=== PATIENT | male | born 1935 | race Caucasian/White ===

== ENCOUNTER 2016-10-18 15:10 | Inpatient (IN) | payer MEDICARE, BC ==
[2016-10-18] MEDS ORDERED: ASPIRIN 81 MG CHEW PO STA (15:45)
[2016-10-18] MEDS ORDERED: NITROGLYCERIN SL TABS 0.4 MG TAB SUBLINGUAL STA (15:45)
--- NOTE | 2016-10-18 16:10 | XR ---
EXAMINATION TYPE: XR chest 2V DATE OF EXAM: 10/18/2016 COMPARISON: 01/13/2011 INDICATION: Chest pain TECHNIQUE: Frontal and lateral views of the chest are obtained. FINDINGS: The heart size is mildly prominent. The pulmonary vasculature is normal. The lungs are clear. Bilateral shoulder prostheses are present. IMPRESSION: 1. Mild cardiomegaly
[2016-10-18 16:14] LABS: Basophils % (A) 0 %; CH 23.4; Eosinophils # (A) 0.1 k/uL (0-0.7); Eosinophils % (A) 1 %; HCT 26.8 % (39.0-53.0); HDW 4.44; HGB 8.3 gm/dL (13.0-17.5); Hypochromasia Marked; Luc # (Auto) 0.19; Luc % (Auto) 3; Lymphocytes # (A) 0.8 k/uL (1.0-4.8); Lymphocytes % (A) 10 %; MCH 24.3 pg (25.0-35.0); MCHC 31.1 g/dL (31.0-37.0); MCV 78.2 fL (80.0-100.0); Mean Platelet Volume 7.7; Monocytes # (A) 0.3 k/uL (0-1.0); Monocytes % (A) 4 %; Neutrophils # (A) 6.1 k/uL (1.3-7.7); Neutrophils % (A) 82 %; Poikilocytosis Moderate; RBC 3.43 m/uL (4.30-5.90); RDW 14.6 % (11.5-15.5); WBC 7.5 k/uL (3.8-10.6); WBC (Perox) 7.79
--- NOTE | 2016-10-18 16:22 | ED ---
General Adult HPI - General Chief complaint: Chest Pain Stated complaint: SOB/Chest Pain Time Seen by Provider: 10/18/16 15:30 Source: patient, family, RN notes reviewed, old records reviewed Mode of arrival: wheelchair Limitations: no limitations - History of Present Illness Initial comments: 81-year-old man with history of atrial fibrillation, CAD, hypertension presents with chief complaint of chest pain and shortness of breath. Patient has had 3 days of intermittent chest pain. Discomfort. Activity and at rest. It is substernal, primarily on the left but does also traveled to the right side of his chest. He describes this as a heaviness. Patient also states that on an episode of chest pain this morning it did radiate into his jaw. Denies any arm symptoms. Denies nausea or diaphoresis. Patient does have known history of CAD. He is on our requests for atrial fibrillation. Patient denies missing any medication. He has taken nitroglycerin most recently just prior to arrival. Nitroglycerin did improve his symptoms to some degree. He is currently chest pain-free. Patient has had rectal bleeding over the past several months. Denies any current bleeding. - Related Data Home Medications Medication Instructions Recorded Confirmed Apixaban [Eliquis] 5 mg PO HS 12/15/13 10/18/16 Aspirin EC [Ecotrin] 81 mg PO PC-SUPPER 12/15/13 10/18/16 Atorvastatin Calcium [Atorvastatin 80 mg PO PC-SUPPER 12/15/13 10/18/16 Calcium] Nitroglycerin Sl Tabs [Nitrostat] 0.4 mg PO Q5M PRN 12/15/13 10/18/16 Zolpidem Tartrate [Zolpidem 10 mg PO HS PRN 12/15/13 10/18/16 Tartrate] amLODIPine [Norvasc] 10 mg PO PC-SUPPER 12/15/13 10/18/16 Furosemide [Lasix] 20 mg PO DAILY 10/18/16 10/18/16 Hydrocodone/Acetaminophen [[place] 1 tab PO HS PRN 10/18/16 10/18/16 10-325] Lutein 10 mg PO HS 10/18/16 10/18/16 Mesal/Menth/Camph/[place] 1 inhalation EA NOSTRIL DAILY PRN 10/18/16 [Vicks Vapoinhaler] Multivitamins, Thera [Multivitamin 1 tab PO HS 10/18/16 10/18/16 (formulary)] traZODone HCL 50 mg PO HS 10/18/16 10/18/16 Allergies Allergy/AdvReac Type Severity Reaction Status Date / Time iodine Allergy kidney Verified 10/18/16 16:29 shutdown Review of Systems ROS Statement: Those systems with pertinent positive or pertinent negative responses have been documented in the HPI. ROS Other: All systems not noted in ROS Statement are negative. Past Medical History Past Medical History: Atrial Fibrillation, Hyperlipidemia, Hypertension History of Any Multi-Drug Resistant Organisms: None Reported Past Surgical History: Heart Catheterization With Stent, Hernia Repair, Joint Replacement Additional Past Surgical History / Comment(s): cardioversions Past Psychological History: No Psychological Hx Reported Smoking Status: Former smoker Past Alcohol Use History: Rare Past Drug Use History: None Reported General Exam Limitations: no limitations General appearance: alert, in no apparent distress Head exam: Present: atraumatic, normocephalic Eye exam: Present: normal appearance, PERRL, EOMI ENT exam: Present: normal exam, mucous membranes dry Neck exam: Present: normal inspection. Absent: tenderness, meningismus Respiratory exam: Present: normal lung sounds bilaterally. Absent: respiratory distress, wheezes, rhonchi Cardiovascular Exam: Present: regular rate, irregular rhythm GI/Abdominal exam: Present: soft, distended. Absent: tenderness, guarding Rectal exam: Present: normal inspection. Absent: black stool, bloody stool Extremities exam: Present: normal inspection, full ROM Neurological exam: Present: alert, oriented X3, CN II-XII intact. Absent: motor sensory deficit Psychiatric exam: Present: normal affect, normal mood Skin exam: Present: warm, dry. Absent: cyanosis, diaphoretic Course Vital Signs 10/18/16 10/18/16 10/18/16 15:19 15:30 15:47 Temperature 98.2 F Pulse Rate 66 62 Respiratory 18 18 18 Rate Blood Pressure 142/66 131/62 O2 Sat by Pulse 98 97 Oximetry 10/18/16 10/18/16 16:05 16:33 Temperature Pulse Rate 60 Respiratory 18 Rate Blood Pressure 118/55 125/60 O2 Sat by Pulse 99 Oximetry EKG Findings - EKG Comments: EKG Findings:: EKG shows atrial fibrillation, ventricular rate of 69, QRS duration 92, QTC 458. No signs of ischemia Medical Decision Making - Medical Decision Making 81-year-old man presenting with 3 days of intermittent chest pain. Chest pain is typical, associated with some shortness of breath. Patient also reports rectal bleeding over the past several months. He did have prostate radiation his had bleeding since this procedure. Patient does not have chest pain at the time my evaluation. EKG is nonischemic. Chest x-ray shows cardiomegaly with no acute intrathoracic process. Hemoglobin is 8.3, last known baseline in 2014 was 14.7, this does represent a 6 g drop in hemoglobin. Creatinine is elevated at 1.35 from baseline of 1.22. Patient's hemoglobin will be repeated at 10 PM as well as 6 AM tomorrow. There is no melena or active bleeding on rectal exam , stool is heme positive. This doesn't likely represent a prolonged slow GI bleed. Vital signs are stable. Magnesium is 1.5, this is replaced. Case is discussed with cardiology. Chest pain is likely anginal from anemia. This will be held at this time. GI will be placed on consult. Troponin level is pending at the time of this dictation, however given the low hemoglobin and positive stool, no anticoagulation will be provided at this time. Patient will be admitted to internal medicine with cardiology and gastroenterology on consult. Diagnosis: Angina, GI bleed, acute kidney injury - Lab Data Result diagrams: 10/18/16 15:43 10/18/16 15:43 Lab Results 10/18/16 10/18/16 10/18/16 Range/Units 15:43 15:43 15:43 WBC 7.5 (3.8-10.6) k/uL RBC 3.43 L (4.30-5.90) m/uL Hgb 8.3 L (13.0-17.5) gm/dL Hct 26.8 L (39.0-53.0) % MCV 78.2 L (80.0-100.0) fL MCH 24.3 L (25.0-35.0) pg MCHC 31.1 (31.0-37.0) g/dL RDW 14.6 (11.5-15.5) % Plt Count 257 (150-450) k/uL Neutrophils % 82 % Lymphocytes % 10 % Monocytes % 4 % Eosinophils % 1 % Basophils % 0 % Neutrophils # 6.1 (1.3-7.7) k/uL Lymphocytes # 0.8 L (1.0-4.8) k/uL Monocytes # 0.3 (0-1.0) k/uL Eosinophils # 0.1 (0-0.7) k/uL Basophils # 0.0 (0-0.2) k/uL Hypochromasia Marked Poikilocytosis Moderate PT 12.1 H (9.0-12.0) sec INR 1.2 H (<1.2) APTT 24.1 (22.0-30.0) sec Sodium 144 (137-145) mmol/L Potassium 3.6 (3.5-5.1) mmol/L Chloride 103 (98-107) mmol/L Carbon Dioxide 26 (22-30) mmol/L Anion Gap 15 mmol/L BUN 13 (9-20) mg/dL Creatinine 1.35 H (0.66-1.25) mg/dL Est GFR (MDRD) Af Amer >60 (>60 ml/min/1.73 sqM) Est GFR (MDRD) Non-Af 51 (>60 ml/min/1.73 sqM) Glucose 118 H (74-99) mg/dL Calcium 8.0 L (8.4-10.2) mg/dL Magnesium 1.5 L (1.6-2.3) mg/dL Total Bilirubin 1.6 H (0.2-1.3) mg/dL AST 26 (17-59) U/L ALT 19 L (21-72) U/L Alkaline Phosphatase 99 (38-126) U/L Total Protein 6.0 L (6.3-8.2) g/dL Albumin 3.3 L (3.5-5.0) g/dL Stool Occult Blood (Negative) 10/18/16 Range/Units 15:43 WBC (3.8-10.6) k/uL RBC (4.30-5.90) m/uL Hgb (13.0-17.5) gm/dL Hct (39.0-53.0) % MCV (80.0-100.0) fL MCH (25.0-35.0) pg MCHC (31.0-37.0) g/dL RDW (11.5-15.5) % Plt Count (150-450) k/uL Neutrophils % % Lymphocytes % % Monocytes % % Eosinophils % % Basophils % % Neutrophils # (1.3-7.7) k/uL Lymphocytes # (1.0-4.8) k/uL Monocytes # (0-1.0) k/uL Eosinophils # (0-0.7) k/uL Basophils # (0-0.2) k/uL Hypochromasia Poikilocytosis PT (9.0-12.0) sec INR (<1.2) APTT (22.0-30.0) sec Sodium (137-145) mmol/L Potassium (3.5-5.1) mmol/L Chloride (98-107) mmol/L Carbon Dioxide (22-30) mmol/L Anion Gap mmol/L BUN (9-20) mg/dL Creatinine (0.66-1.25) mg/dL Est GFR (MDRD) Af Amer (>60 ml/min/1.73 sqM) Est GFR (MDRD) Non-Af (>60 ml/min/1.73 sqM) Glucose (74-99) mg/dL Calcium (8.4-10.2) mg/dL Magnesium (1.6-2.3) mg/dL Total Bilirubin (0.2-1.3) mg/dL AST (17-59) U/L ALT (21-72) U/L Alkaline Phosphatase (38-126) U/L Total Protein (6.3-8.2) g/dL Albumin (3.5-5.0) g/dL Stool Occult Blood Positive (Negative) Critical Care Time Critical Care Time: Yes Total Critical Care Time: 35 Disposition Clinical Impression: Angina pectoris, Lower GI bleed Disposition: ADMITTED IP TO THIS [facility] Condition: Stable Referrals: Cam Nichole MD [Primary Care Provider] - 1-2 days Decision to Admit Reason: Admit from EC Decision Date: 10/18/16 Decision Time: 16:48
[2016-10-18 16:23] LABS: ALT 19 U/L (21-72); AST 26 U/L (17-59); Alkaline Phosphatase 99 U/L (38-126); Anion Gap 15 mmol/L; Blood Urea Nitrogen 13 mg/dL (9-20); Carbon Dioxide 26 mmol/L (22-30); Chloride 103 mmol/L (98-107); Glucose 118 mg/dL (74-99); INR 1.2 (<1.2); Magnesium 1.5 mg/dL (1.6-2.3); Non-African American GFR(MDRD) 51 (>60 ml/min/1.73 sqM); Partial Thromboplastin Time 24.1 sec (22.0-30.0); Potassium 3.6 mmol/L (3.5-5.1); Prothrombin Time 12.1 sec (9.0-12.0); Sodium 144 mmol/L (137-145); Total Bilirubin 1.6 mg/dL (0.2-1.3)
[2016-10-18] MEDS ORDERED: MORPHINE SULFATE 4 MG/ML SYRINGE IV PRN (16:36)
[2016-10-18] MEDS ORDERED: ONDANSETRON 4 MG/2 ML VIAL IVP PRN (16:36)
[2016-10-18] MEDS ORDERED: ACETAMINOPHEN TAB 325 MG TAB PO PRN (16:36)
[2016-10-18] MEDS ORDERED: NALOXONE 0.4 MG/ML 1 ML VIAL IV PRN (16:36)
[2016-10-18] MEDS ORDERED: MAGNESIUM SULFATE-D5W PMX 1 GM in DEXTROSE/WATER 1 100ML.BAG IVPB ONE (16:41)
[2016-10-18 16:48] LABS: Creatine Kinase MB 0.8 ng/mL (0.0-2.4); Troponin I 0.013 ng/mL (0.000-0.034)
[2016-10-18] MEDS ORDERED: HYDROcodone/APAP 5-325MG 1 EACH TAB PO STA (17:03)
[2016-10-18] MEDS: SODIUM CHLORIDE 0.9% 1,000 ML IV SCH (17:22)
[2016-10-18 18:34] VITALS: BMI 33.7
[2016-10-18] MEDS: amLODIPine 10 MG TAB PO SCH (19:54)
[2016-10-18] MEDS: ATORVASTATIN 80 MG TAB PO SCH (19:54)
[2016-10-18] MEDS: ZOLPIDEM 10 MG TAB PO PRN (21:34)
[2016-10-18] MEDS: HYDROcodone/APAP 10-325MG 1 EACH TAB PO PRN (21:35)
[2016-10-18] MEDS: traZODone HCL 50 MG TAB PO SCH (21:36)
[2016-10-18 22:36] LABS: Basophils % (A) 0 %; CH 23.2; CHCM 29.6; Eosinophils # (A) 0.1 k/uL (0-0.7); Eosinophils % (A) 1 %; HCT 29.2 % (39.0-53.0); HDW 4.34; HGB 8.8 gm/dL (13.0-17.5); Hypochromasia Marked; Luc # (Auto) 0.18; Luc % (Auto) 3; Lymphocytes % (A) 16 %; MCH 23.8 pg (25.0-35.0); MCHC 30.2 g/dL (31.0-37.0); MCV 78.6 fL (80.0-100.0); Mean Platelet Volume 7.6; Monocytes # (A) 0.4 k/uL (0-1.0); Monocytes % (A) 6 %; Neutrophils # (A) 4.5 k/uL (1.3-7.7); Neutrophils % (A) 74 %; Poikilocytosis Moderate; RBC 3.71 m/uL (4.30-5.90); RDW 14.9 % (11.5-15.5); WBC 6.1 k/uL (3.8-10.6); WBC (Perox) 6.47
[2016-10-18 22:54] LABS: Creatine Kinase MB 0.9 ng/mL (0.0-2.4); Troponin I 0.019 ng/mL (0.000-0.034)
[2016-10-19 03:51] LABS: Basophils % (A) 1 %; CH 23.1; CHCM 29.6; Eosinophils # (A) 0.1 k/uL (0-0.7); Eosinophils % (A) 2 %; HCT 26.6 % (39.0-53.0); HDW 4.34; HGB 8.3 gm/dL (13.0-17.5); Hypochromasia Marked; Luc # (Auto) 0.19; Luc % (Auto) 4; Lymphocytes # (A) 1.2 k/uL (1.0-4.8); Lymphocytes % (A) 21 %; MCH 24.4 pg (25.0-35.0); MCHC 31.2 g/dL (31.0-37.0); MCV 78.2 fL (80.0-100.0); Mean Platelet Volume 7.8; Monocytes # (A) 0.3 k/uL (0-1.0); Monocytes % (A) 6 %; Neutrophils # (A) 3.6 k/uL (1.3-7.7); Neutrophils % (A) 66 %; Poikilocytosis Moderate; RDW 14.6 % (11.5-15.5); WBC 5.5 k/uL (3.8-10.6); WBC (Perox) 5.77
[2016-10-19 04:34] LABS: Creatine Kinase MB 0.8 ng/mL (0.0-2.4); Troponin I 0.03 ng/mL (0.000-0.034)
[2016-10-19 04:44] LABS: ALT 23 U/L (21-72); AST 33 U/L (17-59); Alkaline Phosphatase 98 U/L (38-126); Anion Gap 8 mmol/L; Blood Urea Nitrogen 15 mg/dL (9-20); Calcium 7.8 mg/dL (8.4-10.2); Carbon Dioxide 28 mmol/L (22-30); Chloride 104 mmol/L (98-107); Glucose 101 mg/dL (74-99); Non-African American GFR(MDRD) 53 (>60 ml/min/1.73 sqM); Potassium 3.8 mmol/L (3.5-5.1); Sodium 140 mmol/L (137-145); Total Bilirubin 1.8 mg/dL (0.2-1.3); Total Protein 5.7 g/dL (6.3-8.2)
[2016-10-19] MEDS ORDERED: FLUTICASONE 50MCG/SPRAY NASAL 16GM EA NOSTRIL PRN (04:54)
[2016-10-19] MEDS ORDERED: NITROGLYCERIN SL TABS 0.4 MG TAB SUBLINGUAL PRN (07:48)
[2016-10-19] MEDS ORDERED: FUROSEMIDE 20 MG TAB PO SCH (09:00)
[2016-10-19] MEDS: SODIUM CHLORIDE 0.9% 1,000 ML IV SCH (09:06)
[2016-10-19] MEDS: HYDROcodone/APAP 10-325MG 1 EACH TAB PO PRN (10:20)
--- NOTE | 2016-10-19 10:48 | P.CRDCN ---
History of Present Illness Consult reason: atrial fibrillation, congestive heart failure Chief complaint: blood loss lower gi, recurrent History of present illness: Patient follows with me as an outpatient. Please see full consultation Impression Acute on chronic CHF, diastolic with a normal EF in the past precipitated by anemia secondary to acute blood loss, hemoglobin around 8.3, lower GI bleeding, recurrent for the last few months History of permanent atrial fibrillation him a intrinsic lead rate controlled, gets bradycardic with beta blockers hence beta blockers were discontinued as an outpatient Nonobstructive CAD Obstructive sleep apnea using CPAP mask Normal cardiac enzymes, elevated BNP Suggest GI workup and management of anemia IV Lasix 40 mg daily for 2 days and then reevaluate Imdur 15 mg by mouth daily No beta blockers, history of significant bradycardia on beta kirstin 2-D echo and Doppler study tomorrow Past Medical History Past Medical History: Atrial Fibrillation, Hyperlipidemia, Hypertension Additional Past Medical History / Comment(s): prostate ca 1.5 year ago. radiation (last tx 07/08) History of Any Multi-Drug Resistant Organisms: None Reported Past Surgical History: Cholecystectomy, Heart Catheterization With Stent, Hernia Repair, Joint Replacement Additional Past Surgical History / Comment(s): cardioversions; BL shoulders replaced; amputation of left index finger; BL cataracts Date of Last Stent Placement:: 2010 Past Psychological History: No Psychological Hx Reported Smoking Status: Former smoker Past Alcohol Use History: Rare Past Drug Use History: None Reported Medications and Allergies Home Medications Medication Instructions Recorded Confirmed Type Apixaban [Eliquis] 5 mg PO HS 12/15/13 10/18/16 History Aspirin EC [Ecotrin] 81 mg PO PC-SUPPER 12/15/13 10/18/16 History Atorvastatin Calcium [Atorvastatin 80 mg PO PC-SUPPER 12/15/13 10/18/16 History Calcium] Nitroglycerin Sl Tabs [Nitrostat] 0.4 mg PO Q5M PRN 12/15/13 10/18/16 History Zolpidem Tartrate [Zolpidem 10 mg PO HS PRN 12/15/13 10/18/16 History Tartrate] amLODIPine [Norvasc] 10 mg PO PC-SUPPER 12/15/13 10/18/16 History Furosemide [Lasix] 20 mg PO DAILY 10/18/16 10/18/16 History Hydrocodone/Acetaminophen [[place] 1 tab PO HS PRN 10/18/16 10/18/16 History 10-325] Lutein 10 mg PO HS 10/18/16 10/18/16 History Mesal/Menth/Camph/[place] 1 inhalation EA NOSTRIL DAILY PRN 10/18/16 History [Vicks Vapoinhaler] Multivitamins, Thera [Multivitamin 1 tab PO HS 10/18/16 10/18/16 History (formulary)] traZODone HCL 50 mg PO HS 10/18/16 10/18/16 History Allergies Allergy/AdvReac Type Severity Reaction Status Date / Time iodine Allergy kidney Verified 10/18/16 16:29 shutdown Physical Exam Vitals: Vital Signs Temp Pulse Pulse Resp BP BP Pulse Ox 10/19/16 08:00 80 20 164/56 100 10/19/16 06:03 70 19 151/67 96 10/19/16 04:00 56 L 19 10/19/16 00:37 87 19 143/70 97 10/18/16 20:23 60 19 159/75 100 10/18/16 17:26 98.0 F 60 18 137/72 97 10/18/16 17:03 63 18 146/65 96 10/18/16 16:33 60 18 125/60 99 10/18/16 16:05 118/55 10/18/16 16:00 68 20 137/71 96 10/18/16 15:47 62 18 131/62 97 10/18/16 15:30 18 10/18/16 15:19 98.2 F 66 18 142/66 98 Intake and Output 10/18/16 10/19/16 10/19/16 22:59 06:59 14:59 Other: Voiding Method Toilet Toilet Urinal Urinal # Voids 2 Weight 106.59 kg Results 10/19/16 03:23 10/19/16 03:23 Cardiac Enzymes 10/18/16 10/18/16 10/18/16 Range/Units 15:43 15:43 21:52 AST 26 (17-59) U/L CK-MB (CK-2) 0.8 0.9 (0.0-2.4) ng/mL Troponin I 0.013 0.019 (0.000-0.034) ng/mL 10/19/16 10/19/16 Range/Units 03:23 03:23 AST 33 (17-59) U/L CK-MB (CK-2) 0.8 (0.0-2.4) ng/mL Troponin I 0.030 (0.000-0.034) ng/mL Coagulation 10/18/16 Range/Units 15:43 PT 12.1 H (9.0-12.0) sec APTT 24.1 (22.0-30.0) sec CBC 10/18/16 10/18/16 10/19/16 Range/Units 15:43 21:52 03:23 WBC 7.5 6.1 5.5 (3.8-10.6) k/uL RBC 3.43 L 3.71 L 3.40 L (4.30-5.90) m/uL Hgb 8.3 L 8.8 L 8.3 L (13.0-17.5) gm/dL Hct 26.8 L 29.2 L 26.6 L (39.0-53.0) % Plt Count 257 236 213 (150-450) k/uL Comprehensive Metabolic Panel 10/18/16 10/19/16 Range/Units 15:43 03:23 Sodium 144 140 (137-145) mmol/L Potassium 3.6 3.8 (3.5-5.1) mmol/L Chloride 103 104 (98-107) mmol/L Carbon Dioxide 26 28 (22-30) mmol/L BUN 13 15 (9-20) mg/dL Creatinine 1.35 H 1.30 H (0.66-1.25) mg/dL Glucose 118 H 101 H (74-99) mg/dL Calcium 8.0 L 7.8 L (8.4-10.2) mg/dL AST 26 33 (17-59) U/L ALT 19 L 23 (21-72) U/L Alkaline Phosphatase 99 98 (38-126) U/L Total Protein 6.0 L 5.7 L (6.3-8.2) g/dL Albumin 3.3 L 3.1 L (3.5-5.0) g/dL Current Medications Generic Name Dose Route Start Last Admin Trade Name Freq PRN Reason Stop Dose Admin Acetaminophen 650 mg 10/18/16 16:36 Tylenol Tab PO Q6HR PRN Mild Pain or Fever > 100.5 Hydrocodone Bitart/Acetaminophen 1 each 10/18/16 16:43 10/19/16 10:20 [place] 10 PO 1 each HS PRN Administration MODERATE Pain Amlodipine Besylate 10 mg 10/18/16 18:30 10/18/16 19:54 Norvasc PO 10 mg PC-SUPPER MARIA M Administration Atorvastatin Calcium 80 mg 10/18/16 18:30 10/18/16 19:54 Lipitor PO 80 mg PC-SUPPER MARIA M Administration Fluticasone Propionate 2 spray 10/19/16 04:54 Flonase Nasal [place] EA NOSTRIL DAILY PRN Allergy Symptoms Furosemide 40 mg 10/19/16 10:45 Lasix IV 10/21/16 07:00 DAILY [facility] Isosorbide Mononitrate 15 mg 10/19/16 10:45 Imdur PO DAILY MARIA M Morphine Sulfate 4 mg 10/18/16 16:36 Morphine Sulfate (Inj) IV Q4HR PRN Severe Pain Multivitamins 1 each 10/19/16 21:00 Theragran PO HS MARIA M Naloxone HCl 0.2 mg 10/18/16 16:36 Narcan IV Q2M PRN Opioid Reversal Nitroglycerin 0.4 mg 10/19/16 07:48 Nitrostat SUBLINGUAL Q5M PRN Chest Pain Ondansetron HCl 4 mg 10/18/16 16:36 Zofran IVP Q8HR PRN Nausea And Vomiting Trazodone HCl 50 mg 10/18/16 21:00 10/18/16 21:36 Desyrel PO 50 mg HS MARIA M Administration Zolpidem Tartrate 10 mg 10/18/16 16:43 10/18/16 21:34 Ambien PO 10 mg HS PRN Administration Insomnia Intake and Output 10/18/16 10/19/16 10/19/16 22:59 06:59 14:59 Other: Voiding Method Toilet Toilet Urinal Urinal # Voids 2 Weight 106.59 kg 10/19/16 03:23 10/19/16 03:23
[2016-10-19] MEDS: FUROSEMIDE 10 MG/ML 4 ML VIAL IV SCH (11:55)
[2016-10-19] MEDS: ISOSORBIDE MONONITRATE ER 15 MG TAB PO SCH (11:55)
--- NOTE | 2016-10-19 14:51 | CONS ---
DATE OF CONSULTATION: 10/19/16 REASON FOR CONSULTATION: Rectal bleeding. HISTORY OF PRESENT ILLNESS: The patient is an 81 -year-old pleasant white male admitted to the hospital with shortness of breath for the last two months duration. Came into the emergency room and was found to be anemic with hemoglobin of 8.3. Apparently his baseline hemoglobin was 14. The patient has been having intermittent rectal bleeding for the last two months. He has these bleeding episodes at least three or four times a week often with small clots. He was diagnosed with prostate cancer about a year ago and underwent radiation therapy at that time. His last colonoscopy was about four years ago and according to the patients , it was within normal limits. The patient denies any abdominal pain, reports no nausea or vomiting. PAST MEDICAL HISTORY: Significant for hypertension, A. fib. Presently on Eliquis. Last dose was three days ago, history of sleep apnea, on CPAP, hypertension, hyperlipidemia. Medications at home: 1. Eliquis. 2. Ecotrin. 3. Atorvastatin. 4. Nitrostat. 5. Zolpidem. 6. [place]. 7. Lasix. 8. Norvasc. 9. Multivitamin. 10. Trazodone. ALLERGIES: IODINE. PAST SURGICAL HISTORY: Cardiac catheterization with stent placement, hernia repair. SOCIAL HISTORY: No smoking or alcohol use. FAMILY HISTORY: Unremarkable. REVIEW OF SYSTEMS: Cardiopulmonary: No chest pain. He does complain of some shortness of breath. : No dysuria or hematuria. Musculoskeletal: Unremarkable. Endocrine: Unremarkable. Skin: Unremarkable. Psychiatric: Unremarkable. Neurological: Unremarkable. ENT/vision: Unremarkable. Constitutional; No recent weight loss. No fevers, chills or night sweats. On physical examination, he appears comfortable in no apparent distress. Vital signs are stable. Blood pressure 151/66. Pulse rate 56. ( ). HEENT: unremarkable. Conjunctivae pink. Sclerae anicteric. Oral cavity no lesions. Neck: No JVD or lymph node enlargement. Chest clear to auscultation. Heart regular rate and rhythm. Abdomen soft. Bowel sounds positive. He is obese. Extremities no pedal edema. Skin no rashes. Neurological: Alert and oriented times three. No focal deficits. Labs done at the time of admission to the hospital: WBC 7.5, hemoglobin 8.3, platelets are normal. This morning hemoglobin 8.3. ( ) INR 1.2. IMPRESSION: 1. This is a patient with intermittent rectal bleeding for the last two months duration. He is status post radiation therapy for prostate cancer about a year ago. 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 His last colonoscopy was about four years ago which was within normal limits. Last hemoglobin 8.3. 2. Atrial fibrillation on Eliquis, on hold for the last two days. 3. Sleep apnea on oral BIPAP. RECOMMENDATIONS: 1. Continue to hold Coumadin. 2. We will start him on a clear liquid diet today. 3. Proceed with colonoscopy tomorrow with Argon plasma coagulation for possible radiation proctitis. The plan was discussed with the patient and he is agreeable to it. Thank you for this consultation. PETROS
--- NOTE | 2016-10-19 16:28 | P.HPIM ---
History of Present Illness H&P Date: 10/19/16 Chief Complaint: Chest pain History of presenting complaint: This is a very pleasant 9-year-old patient of Dr. Pastor. Chronic stable medical conditions include atrial fibrillation, hyperlipidemia, hypertension, prostate cancer treated with radiation about a year ago. Patient has known coronary artery disease with stent placement 2010. Patient has a stress test about a year ago was negative. Patient intermittently for last 8 weeks and had blood in his stools coming on at different times. Patient now presents with pain going across the chest 3-4 times a day given coming on at rest for example watching television. Sometimes the pain goes up his neck, patient short of breath, denies perspiration. Sometimes gets dizzy. Oftentimes tired. Admitted unstable angina. is at the bedside. GEN.: Tired EYES: None HEENT: None NECK: None RESPIRATORY: As above CARDIOVASCULAR: As above GASTROINTESTINAL: As above GENITOURINARY: None MUSCULOSKELETAL: Some pain in the joints LYMPHATICS: None HEMATOLOGICAL: As above PSYCHIATRY: None NEUROLOGICAL: None Past medical history: Atrial fibrillation, hyperlipidemia, hypertension, prostate cancer treated with radiation treatment, coronary artery with stent in 2010 Past surgical history: Cholecystectomy, cardiac cath and stent, hernia repair, joint replacement, bilateral shoulder replaced, and patient left index finger, bilateral cataract surgery. 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 EYES: Pupils equal. Conjunctiva normal. HEENT: External appearance of nose and ears normal, oral cavity grossly normal. NECK: JVD not raised; masses not palpable. HEART: First and second heart sounds are normal; no edema. LUNGS: Respiratory rate normal; clear to auscultation. ABDOMEN: Soft, nontender, liver spleen not palpable, no masses palpable. LYMPHATICS: No lymph nodes palpable in the axilla and neck. PSYCH: Alert and oriented x3; mood and affect normal. NEUROLOGICAL: Cranial nerves grossly intact; no facial asymmetry, power and sensation grossly intact. Investigations: White count 7.5 hemoglobin 8.3 potassium 3.6 creatinine 1.35 bilirubin 1.6 Troponin 0.013, 0.019, 0.030 proBNP 2850 Chest x-ray mild cardiomegaly Assessment: -Unstable angina in a patient with known coronary artery disease with stent in 2010. Patient been bleeding slowly from the GI and this anemia could well be contributing and causing the patient to be symptomatically. 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 Chacon from cardiology. They both agree patient should get a unit of blood to help of his angina at this point. Also GI was consulted. They'll proceed with endoscopy. Care was discussed with the patient and at the bedside. Patient anticoagulated is being held. Home medications are resumed. Past Medical History Past Medical History: Atrial Fibrillation, Hyperlipidemia, Hypertension Additional Past Medical History / Comment(s): prostate ca 1.5 year ago. radiation (last tx 07/08) History of Any Multi-Drug Resistant Organisms: None Reported Past Surgical History: Cholecystectomy, Heart Catheterization With Stent, Hernia Repair, Joint Replacement Additional Past Surgical History / Comment(s): cardioversions; BL shoulders replaced; amputation of left index finger; BL cataracts Date of Last Stent Placement:: 2010 Past Psychological History: No Psychological Hx Reported Smoking Status: Former smoker Past Alcohol Use History: Rare Past Drug Use History: None Reported Medications and Allergies Home Medications Medication Instructions Recorded Confirmed Type Apixaban [Eliquis] 5 mg PO HS 12/15/13 10/18/16 History Aspirin EC [Ecotrin] 81 mg PO PC-SUPPER 12/15/13 10/18/16 History Atorvastatin Calcium [Atorvastatin 80 mg PO PC-SUPPER 12/15/13 10/18/16 History Calcium] Nitroglycerin Sl Tabs [Nitrostat] 0.4 mg PO Q5M PRN 12/15/13 10/18/16 History Zolpidem Tartrate [Zolpidem 10 mg PO HS PRN 12/15/13 10/18/16 History Tartrate] amLODIPine [Norvasc] 10 mg PO PC-SUPPER 12/15/13 10/18/16 History Furosemide [Lasix] 20 mg PO DAILY 10/18/16 10/18/16 History Hydrocodone/Acetaminophen [[place] 1 tab PO HS PRN 10/18/16 10/18/16 History 10-325] Lutein 10 mg PO HS 10/18/16 10/18/16 History Mesal/Menth/Camph/[place] 1 inhalation EA NOSTRIL DAILY PRN 10/18/16 History [Vicks Vapoinhaler] Multivitamins, Thera [Multivitamin 1 tab PO HS 10/18/16 10/18/16 History (formulary)] traZODone HCL 50 mg PO HS 10/18/16 10/18/16 History Allergies Allergy/AdvReac Type Severity Reaction Status Date / Time iodine Allergy kidney Verified 10/18/16 16:29 shutdown Results CBC & Chem 7: 10/19/16 03:23 10/19/16 03:23
[2016-10-19] MEDS ORDERED: PEG 3350-NA SULF,BICARB,CL/KCL 4,000 ML BOTTLE PO ONE (17:00)
[2016-10-19] MEDS: ATORVASTATIN 80 MG TAB PO SCH (18:19)
[2016-10-19] MEDS: amLODIPine 10 MG TAB PO SCH (18:19)
[2016-10-19 19:22] LABS: WBC 7.9 k/uL (3.8-10.6)
[2016-10-19 19:23] LABS: CH 24.3; CHCM 30.5; HCT 33.3 % (39.0-53.0); HDW 4.54; HGB 10.5 gm/dL (13.0-17.5); MCH 25.1 pg (25.0-35.0); MCHC 31.5 g/dL (31.0-37.0); MCV 79.6 fL (80.0-100.0); RBC 4.18 m/uL (4.30-5.90); RDW 15.7 % (11.5-15.5); WBC (Perox) 7.95
[2016-10-19 19:24] LABS: Hypochromasia Marked; Mean Platelet Volume 7.7; Poikilocytosis Moderate
[2016-10-19 19:25] LABS: Basophils % (A) 0 %; Eosinophils % (A) 2 %; Luc % (Auto) 4; Monocytes % (A) 7 %; Neutrophils % (A) 71 %
[2016-10-19 19:26] LABS: Eosinophils # (A) 0.2 k/uL (0-0.7); Lymphocytes # (A) 1.2 k/uL (1.0-4.8); Lymphocytes % (A) 16 %; Monocytes # (A) 0.5 k/uL (0-1.0); Neutrophils # (A) 5.6 k/uL (1.3-7.7)
[2016-10-19 19:27] LABS: Luc # (Auto) 0.29
[2016-10-19] MEDS: traZODone HCL 50 MG TAB PO SCH (20:09)
[2016-10-19] MEDS: MULTIVITAMINS, THERA 1 EACH TAB PO SCH (20:09)
[2016-10-19] MEDS ORDERED: APIXABAN 5 MG TAB PO SCH (21:00)
[2016-10-20] MEDS: HYDROcodone/APAP 10-325MG 1 EACH TAB PO PRN ×3 (00:07→18:00)
[2016-10-20] MEDS: ZOLPIDEM 10 MG TAB PO PRN ×2 (00:07→22:40)
[2016-10-20 07:53] LABS: Anisocytosis Slight; CH 24.8; CHCM 30.2; HDW 4.41; HGB 9.5 gm/dL (13.0-17.5); Hypochromasia Marked; MCH 24.3 pg (25.0-35.0); MCHC 29.7 g/dL (31.0-37.0); Poikilocytosis Moderate; RDW 16.2 % (11.5-15.5); WBC 8.5 k/uL (3.8-10.6)
[2016-10-20 08:11] LABS: Calcium 8.1 mg/dL (8.4-10.2); Magnesium 1.7 mg/dL (1.6-2.3); Potassium 3.6 mmol/L (3.5-5.1)
[2016-10-20] MEDS: FUROSEMIDE 10 MG/ML 4 ML VIAL IV SCH (08:31)
[2016-10-20] MEDS: ISOSORBIDE MONONITRATE ER 15 MG TAB PO SCH (08:31)
--- NOTE | 2016-10-20 15:36 | P.PN ---
Subjective Principal diagnosis: GI bleed This is an 81-year-old gentleman with history of hypertension, chronic persistent atrial fibrillation, history of bradycardia, nonobstructive coronary artery disease, hyperlipidemia, sleep apnea, presented to the hospital with symptoms of exertional shortness of breath and was found to be anemic with a hemoglobin of 8.3. He was seen and examined this morning, scheduled to undergo an EGD this afternoon. Denies any chest pain, breathing overall is stable. Objective - Vital Signs Vital signs: Vital Signs Temp 99 F 10/20/16 12:00 Pulse 69 10/20/16 12:00 Resp 18 10/20/16 12:00 BP 150/72 10/20/16 12:00 Pulse Ox 95 10/20/16 12:00 Intake & Output 10/19/16 10/20/16 10/20/16 18:59 06:59 18:59 Intake Total 310 Balance 310 Weight 110.2 kg Intake: Blood Product 310 Rc As-1 Unit 310 [id number] Other: Voiding Method Toilet Toilet Urinal Urinal # Voids 1 2 # Bowel Movements 5 - Exam PHYSICAL EXAMINATION: HEENT: Head is atraumatic, normocephalic. Pupils equal, round. Neck is supple. There is no elevated jugular venous pressure. HEART EXAMINATION: Heart S1 and S2 irregularly irregular CHEST EXAMINATION: Lungs are clear to auscultation and precussion. No chest wall tenderness is noted on palpation or with deep breathing. ABDOMEN: Soft, nontender. Bowel sounds are heard. No organomegaly noted. EXTREMITIES: 2+ peripheral pulses with evidence of peripheral edema and no calf tenderness noted. NEUROLOGIC patient is awake, alert and oriented -3. . - Labs CBC & Chem 7: 10/20/16 07:21 10/20/16 07:21 Labs: Abnormal Lab Results - Last 24 Hours (Table) 10/18/16 10/19/16 10/20/16 Range/Units 15:43 19:03 07:21 RBC 4.18 L 3.90 L (4.30-5.90) m/uL Hgb 10.5 L 9.5 L (13.0-17.5) gm/dL Hct 33.3 L 32.0 L (39.0-53.0) % MCV 79.6 L (80.0-100.0) fL MCH 24.3 L (25.0-35.0) pg MCHC 29.7 L (31.0-37.0) g/dL RDW 15.7 H 16.2 H (11.5-15.5) % Creatinine (0.66-1.25) mg/dL Calcium (8.4-10.2) mg/dL Crossmatch See Detail 10/20/16 Range/Units 07:21 RBC (4.30-5.90) m/uL Hgb (13.0-17.5) gm/dL Hct (39.0-53.0) % MCV (80.0-100.0) fL MCH (25.0-35.0) pg MCHC (31.0-37.0) g/dL RDW (11.5-15.5) % Creatinine 1.44 H (0.66-1.25) mg/dL Calcium 8.1 L (8.4-10.2) mg/dL Crossmatch Assessment and Plan (1) Diastolic CHF, acute on chronic Status: Acute (2) Anemia Status: Acute (3) Chronic a-fib Status: Acute (4) HTN (hypertension) Status: Acute (5) Hyperlipemia Status: Acute (6) Sleep apnea Status: Acute (7) Lower GI bleed Status: Acute Plan: Patient is scheduled this afternoon to undergo an EGD. We'll continue current dose of IV Lasix today. Patient does not have beta blockers on board because of history of significant bradycardia on beta kirstin. Repeat echo was performed but is yet pending. We will continue to follow. DNP note has been reviewed, I agree with a documented findings and plan of care. Patient was seen and examined.
--- NOTE | 2016-10-20 15:46 | ECHOF ---
Referral Reason:HF MEASUREMENTS -------- HEIGHT: 182.9 cm WEIGHT: 109.8 kg BP: 151/68 RVIDd: 4.2 cm (< 3.3) IVSd: 1.2 cm (0.6 - 1.1) LVIDd: 5.0 cm (3.9 - 5.3) LVPWd: 1.6 cm (0.6 - 1.1) EDV(Teich): 119 ml IVSs: 2.0 cm LVIDs: 2.4 cm LVPWs: 1.9 cm %IVS Thck: 71 % ESV(Teich): 20 ml EF(Teich): 83 % %FS: 52 % SV(Teich): 99 ml Ao Diam: 3.4 cm (2.0 - 3.7) LA Diam: 3.9 cm (2.7 - 3.8) MV EXCURSION: 21.475 mm (> 18.000) MV EF SLOPE: 153 mm/s (70 - 150) EPSS: 1.2 cm MV E Jacob: 0.91 m/s MV DecT: 266 ms MV Dec Luna: 3.4 m/s MV A Jacob: 0.36 m/s MV E/A Ratio: 2.52 MV PHT: 77 ms E/E': 14.68 E': 0.06 m/s MR Vmax: 2.52 m/s MR maxP.35 mmHg AV Vmax: 0.88 m/s AV maxP.09 mmHg TR Vmax: 2.46 m/s TR maxP.15 mmHg RAP: 5.00 mmHg RVSP: 29.15 mmHg FINDINGS -------- Sinus rhythm. This was a technically difficult study with suboptimal views. Grossly normal LV size and systolic function. Unable to comment on regional wall motion. There is moderate concentric left ventricular hypertrophy. Overall left ventricular systolic function is normal with, an EF between 55 - 60 %. The right ventricle is moderate to severely enlarged. The left atrial size is normal. The right atrium was not well visualized. The aortic valve was not well visualized. There is trace mitral regurgitation. Mild tricuspid regurgitation present. The right ventricular systolic pressure, as measured by Doppler, is 29.15mmHg. The pulmonic valve was not well visualized. The aortic root size is normal. Echo free space may represent effusion or a pericardial fat pad. CONCLUSIONS -------- 1. Sinus rhythm. 2. There is trace mitral regurgitation. 3. Mild tricuspid regurgitation present. 4. The right ventricular systolic pressure, as measured by Doppler, is 29.15mmHg. 5. The pulmonic valve was not well visualized. 6. The aortic root size is normal. 7. Echo free space may represent effusion or a pericardial fat pad. 8. This was a technically difficult study with suboptimal views. 9. Grossly normal LV size and systolic function. Unable to comment on regional wall motion. 10. There is moderate concentric left ventricular hypertrophy. 11. Overall left ventricular systolic function is normal with, an EF between 55 - 60 %. 12. The right ventricle is moderate to severely enlarged. 13. The left atrial size is normal. 14. The right atrium was not well visualized. 15. The aortic valve was not well visualized. CALCINER OPERATOR: Mary Alice Shirley ARLET
--- NOTE | 2016-10-20 16:23 | P.PN ---
<Rosaline Hilton - Last Filed: 10/20/16 16:25> Progress Note - Text DATE OF SERVICE: 10/20/2016 PRESENTING COMPLAINT: Chest pain HISTORY OF PRESENT ILLNESS: 81-year-old male presenting with unstable angina. INTERVAL HISTORY: 10/20/2016: Patient seen in follow-up, lying in bed waiting for colonoscopy. Patient remains nothing by mouth. No further episodes of chest pain, does complain of shortness of breath, using the CPAP from home. No episodes of rectal bleeding. REVIEW OF SYSTEMS: Done for constitutional ,cardiovascular, GI, pulmonary with relevant findings as above. CURRENT MEDICATIONS [place], Norvasc, Lipitor, Lasix, Imdur, trazodone, Ambien. PHYSICAL EXAM VITAL SIGNS: Temperature 97.5, pulse 80, respiratory rate 18, blood pressure 140/75, oxygen saturation 98% on CPAP. GENERAL APPEARANCE: Lying in bed, not in distress. EYES: Pupils equal. Conjunctiva normal. NECK: JVD not raised. Mass not palpable. RESPIRATORY: Respiratory effort normal. Lungs clear to auscultation. CARDIOVASCULAR: First and second sounds normal. No edema. ABDOMEN: Soft. Liver and spleen not palpable. No tenderness. No mass palpable. PSYCHIATRY: Alert and oriented x3. Mood and affect normal. INVESTIGATIONS: Hemoglobin 9.5, BUN 15, creatinine 1.44, calcium 8.1. ASSESSMENT: -Unstable angina in a patient with known coronary artery disease with stent in 2010. Patient been bleeding slowly from the GI and this anemia could well be contributing and causing the patient to be symptomatically. -Acute blood loss anemia microcytic from recurrent lower GI bleed could well be radiation proctitis -Persistent atrial fibrillation -Hyperlipidemia -Essential hypertension -History of prostate cancer treated with radiation treatment -Coronary artery disease with stent in 2010 -Obesity BMI 33.7 -Obstructive sleep apnea uses a CPAP machine. 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 Plan of care discussed with the patient and family at the bedside, We'll continue to follow closely. CONTINUOUS MINING MACHINE OPERATOR statement: Patient was seen and examined by nurse practitioner Rosaline Hilton and all elements of the case discussed with attending Dr. Bryant <Manny,Wilber - Last Filed: 10/21/16 17:25> Progress Note - Text Attending note. Date of service-10/20/2016 This patient was seen and examined by me . Discussed the patient with my nurse practitioner Ms. Hilton. Pending endoscopy. postponed for tomorrow. No chest pain On examination: Lungs-clear, abdomen-soft nontender Investigations: Hemoglobin 9.5 Assessment and plan: Acute lower GI bleed suspected to be radiation proctitis-pending endoscopy Acute blood loss anemia status post blood transfusion Possible unstable angina improved after blood transfusion. Care discussed with the patient and family the bedside
[2016-10-20] MEDS: amLODIPine 10 MG TAB PO SCH (18:00)
[2016-10-20] MEDS: ATORVASTATIN 80 MG TAB PO SCH (18:00)
[2016-10-20] MEDS: traZODone HCL 50 MG TAB PO SCH ×2 (20:40→22:41)
[2016-10-20] MEDS: MULTIVITAMINS, THERA 1 EACH TAB PO SCH ×2 (20:40→22:49)
[2016-10-20] MEDS ORDERED: HYDROcodone/APAP 10-325MG 1 EACH TAB PO PRN (22:12)
[2016-10-21 00:06] VITALS: RESP 18
[2016-10-21] MEDS: ISOSORBIDE MONONITRATE ER 15 MG TAB PO SCH (09:54)
[2016-10-21] MEDS ORDERED: PROPOFOL 10 MG/ML 20 ML VIAL IV ONE (13:40)
[2016-10-21] MEDS ORDERED: LACTATED RINGERS 1,000 ML IV ONE (13:41)
--- NOTE | 2016-10-21 14:29 | P.PCN ---
Date of Procedure: 10/21/16 Preoperative Diagnosis: Postoperative Diagnosis: Procedure(s) Performed: Procedure: Colonoscopy and argon plasma coagulation of telangiectatic bleeding vessels in the rectum secondary to radiation proctitis. Preoperative diagnosis: Rectal bleeding and anemia. Postoperative diagnosis: 1. 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 2. Sigmoid diverticulosis with no evidence of acute diverticulitis or strictures. 3. Less than ideal preparation of the colon with thick fecal water and thick fecal secretions precluding removal of 2 diminutive polyps in the sigmoid and around the hepatic flexure. 4. No large polyps or cancer. Preparation: GoLYTELY prep. Sedation: Was provided by anesthesia. Brief clinical history: The patient is an 81-year-old male who was admitted to the hospital with shortness of breath and anemia. The patient dropped his hemoglobin over the last few months from a baseline of 14 to 8.3 on admission. He was having intermittent rectal bleeding for several months. He had radiation for prostate cancer around 1 year ago. Last colonoscopy was around 4 years ago and was reported normal. The details are summarized in the history and physical and dictated consultation. Procedure: With the patient on his left lateral decubitus position and after informed consent and adequate sedation, the perianal area was inspected and it did not show any fissures or fistulas. There were no masses felt on digital rectal examination. The Olympus CFQ 160L video colonoscope was then inserted in the rectum in the usual fashion and advanced to the cecum. Unfortunately, the preparation was less than ideal and there was thick fecal secretions and fecal debris that precluded removal of 2 diminutive polyps one in the sigmoid and one around the hepatic flexure. No large polyps or cancer were seen. There were several diverticular orifices seen scattered in the sigmoid with no evidence of acute diverticulitis or strictures. In the rectum, and close to the anorectal junction there were multiple telangiectatic vessels and submucosal hemorrhage consistent with radiation proctitis, with several areas bleeding spontaneously and showing friability to the touch of the endoscope. I treated those areas with the argon plasma power A 40 using the straight catheter with good hemostasis. The patient tolerated the procedure well and did not have any immediate complications. Plan: Will allow regular diet and further plans can be made based on his response to this session. I anticipate repeating his colonoscopy in 2-3 years after more thorough preparation because of the finding of diminutive polyps. Implants: Indications for Procedure: Operative Findings: Description of Procedure:
[2016-10-21 15:25] VITALS: BP 173/72; PULSE 61; TEMP 98.3
--- NOTE | 2016-10-21 18:51 | P.DS ---
<Rosaline Hilton - Last Filed: 10/21/16 18:12> Providers Date of admission: 10/18/16 16:48 Expected date of discharge: 10/21/16 Attending physician: Wilber Bryant Consults: 10/18/16 16:37 Consult Physician Urgent Consulting Provider: Belen Trujillo Consult Reason/Comments: GI bleed Do you want consulting provider notified?: Yes, Notify in am Primary care physician: [facility] Course: FINAL DIAGNOSES: -Unstable angina in a patient with known coronary artery disease with stent in 2010. -Acute blood loss anemia microcytic from radiation proctitis, spontaneous oozing of blood status post argon plasma coagulation. -Sigmoid diverticulosis -Hyperlipidemia -Essential hypertension -History of prostate cancer treated with radiation treatment -Coronary artery disease with stent in 2010 -Obesity BMI 33.7 -Obstructive sleep apnea uses a CPAP machine. 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 Admitted for unstable angina. Cardiology consulted, 1 unit of packed red blood cells given for hemoglobin of 8.3, Lasix given, NO beta blockers are to be given due to significant bradycardia on a beta kirstin. GI was consulted, Coumadin held, prepped for colonoscopy with argon plasma coagulation. Colonoscopy revealed radiation proctitis and was treated with argon plasma coagulation and was also found to have sigmoid diverticulosis. Postprocedure patient had no further bleeding episodes, tolerating a diet, ambulatory in the room and hallway, condition stable patient wishes to go home. Cardiology GI also have cleared the patient for discharge. PHYSICAL EXAM: CARDIOVASCULAR: First and second sounds noted no edema RESPIRATORY: Respiratory effort normal, lungs clear to auscultation GI: Abdomen soft, obese, nontender liver and spleen not palpable : No further episodes of rectal bleeding no evidence of blood at the rectum. PSYCHIATRY: Alert and oriented 3 with and affect normal Patient was seen and examined by nurse practitioner Rosaline Hilton in all elements of the case discussed with attending Dr. Bryant DISPOSITION: Patient Condition at Discharge: Stable Plan - Discharge Summary New Discharge Prescriptions: New Fluticasone Nasal [place] [Flonase Nasal [place]] 2 spray EA NOSTRIL DAILY PRN # 1 spray PRN Reason: Allergy Symptoms Isosorbide Mononitrate ER [Imdur] 15 mg PO DAILY #30 tab Continue amLODIPine [Norvasc] 10 mg PO PC-SUPPER Aspirin EC [Ecotrin Low Dose] 81 mg PO PC-SUPPER Nitroglycerin Sl Tabs [Nitrostat] 0.4 mg PO Q5M PRN PRN Reason: Chest Pain Atorvastatin Calcium 80 mg PO PC-SUPPER Zolpidem Tartrate 10 mg PO HS PRN PRN Reason: Insomnia traZODone HCL 50 mg PO HS Multivitamins, Thera [Multivitamin (formulary)] 1 tab PO HS Lutein 10 mg PO HS Hydrocodone/Acetaminophen [[place] 10-325] 1 tab PO Q6HR PRN PRN Reason: Pain Furosemide [Lasix] 20 mg PO DAILY Mesal/Menth/Camph/Siberian Fir [Vicks Vapoinhaler] 1 inhalation EA NOSTRIL DAILY PRN PRN Reason: Congestion Discontinued Apixaban [Eliquis] 5 mg PO HS Discharge Medication List Aspirin EC [Ecotrin Low Dose] 81 mg PO PC-SUPPER 12/15/13 [History] Atorvastatin Calcium 80 mg PO PC-SUPPER 12/15/13 [History] Nitroglycerin Sl Tabs [Nitrostat] 0.4 mg PO Q5M PRN 12/15/13 [History] Zolpidem Tartrate 10 mg PO HS PRN 12/15/13 [History] amLODIPine [Norvasc] 10 mg PO PC-SUPPER 12/15/13 [History] Furosemide [Lasix] 20 mg PO DAILY 10/18/16 [History] Hydrocodone/Acetaminophen [[place] 10-325] 1 tab PO Q6HR PRN 10/18/16 [History] Lutein 10 mg PO HS 10/18/16 [History] Mesal/Menth/Camph/Siberian Fir [Vicks Vapoinhaler] 1 inhalation EA NOSTRIL DAILY PRN 10/18/16 [History] Multivitamins, Thera [Multivitamin (formulary)] 1 tab PO HS 10/18/16 [History] traZODone HCL 50 mg PO HS 10/18/16 [History] Fluticasone Nasal [place] [Flonase Nasal [place]] 2 spray EA NOSTRIL DAILY PRN #1 spray 10/21/16 [Rx] Isosorbide Mononitrate ER [Imdur] 15 mg PO DAILY #30 tab 10/21/16 [Rx] Follow up Appointment(s)/Referral(s): Valdez Pearson MD [STAFF PHYSICIAN] - 11/19/16 4:30 pm Belen Trujillo MD [STAFF PHYSICIAN] - 11/18/16 4:45 pm Cam Nichole MD [Primary Care Provider] - 1 Week (Patient to call Dr. Nichole's office Thursday to schedule follow up appointment. The office is closed at time of discharge. ) Patient Instructions/Handouts: Isosorbide Mononitrate (By mouth), Fluticasone ( Into the nose), Chest Pain (DC), Gastrointestinal Bleeding (DC) Activity/Diet/Wound Care/Special Instructions: hold eliquis till f/u with dr. pearson-1 week Discharge Disposition: HOME SELF-CARE <Wilber Bryant - Last Filed: 10/22/16 19:14> Hospital Course: Attending note. Date of service-10/21/2016 This patient was seen and examined by me . Discussed the patient with my nurse practitioner Ms. Hilton. Final diagnoses his radiation proctitis. No further bleeding. On examination: Abdomen-soft nontender Investigations: Hemoglobin 9.5 Assessment and plan: Acute radiation proctitis causing acute blood loss anemia. Eliquis is being held. Follow-up with cardiology. Persistent atrial fibrillation for which patient was on Eliquis. Discharge plan more than 35 minutes
== END 2016-10-21 16:35 | disposition home or self-care (01) | DRG 393 ==
LOC: EC 15:10 → 6SEL 16:48 → 5MS5E 10-21 07:39
PROVIDERS: ADMIT Hospitalist; ATTEND Hospitalist
PROC: 0W3P8ZZ Control Bleeding in Gastrointestinal Tract, Via Natural or Artificial Opening Endoscopic (ICD-10-PCS; principal; 2016-10-21 07:30)
DX: K62.7 Radiation proctitis (principal); I50.33 Acute on chronic diastolic (congestive) heart failure; I48.1 Persistent atrial fibrillation; I25.110 Atherosclerotic heart disease of native coronary artery with unstable angina pectoris; D62 Acute posthemorrhagic anemia; K92.1 Melena; I48.92 Unspecified atrial flutter; I13.0 Hypertensive heart and chronic kidney disease with heart failure and stage 1 through stage 4 chronic kidney disease, or unspecified chronic kidney disease; E78.5 Hyperlipidemia, unspecified; D50.9 Iron deficiency anemia, unspecified; E66.9 Obesity, unspecified; N18.2 Chronic kidney disease, stage 2 (mild); G47.33 Obstructive sleep apnea (adult) (pediatric); K57.30 Diverticulosis of large intestine without perforation or abscess without bleeding; Z79.01 Long term (current) use of anticoagulants; Z79.899 Other long term (current) drug therapy; Z85.46 Personal history of malignant neoplasm of prostate; Z95.5 Presence of coronary angioplasty implant and graft; Z92.3 Personal history of irradiation; Z90.49 Acquired absence of other specified parts of digestive tract; Z96.612 Presence of left artificial shoulder joint; Z96.611 Presence of right artificial shoulder joint; Z98.42 Cataract extraction status, left eye; Z98.41 Cataract extraction status, right eye; Z87.891 Personal history of nicotine dependence; Z89.022 Acquired absence of left finger(s); Z91.041 Radiographic dye allergy status
CPT/HCPCS: 36415; 45382; 71020; 80048; 80053; 82272; 82550; 82553; 83735; 83880; 84484; 85025; 85027; 85610; 85730; 86850; 86870; 86880; 86900; 86901; 86902; 86920; 93005; 93306; 96374; 99291

== ENCOUNTER → 2017-01-16 | Outpatient (CLI) | payer MEDICARE, BC ==
--- NOTE | 2017-01-16 11:38 | XR ---
EXAMINATION TYPE: XR chest 2V DATE OF EXAM: 01/16/2017 COMPARISON: 12/19/2016 HISTORY: Shortness of breath FINDINGS: There are bilateral pleural effusions with cardiomegaly and bibasilar infiltrate. There is a diffuse interstitial pattern. Hypertrophic and degenerative changes spine. Postsurgical change involving the shoulders. IMPRESSION: 1. Bilateral infiltrate and pleural effusion correlate for CHF.
--- NOTE | 2017-01-16 11:50 | CT ---
EXAMINATION TYPE: CT chest wo con DATE OF EXAM: 01/16/2017 COMPARISON: Chest radiograph dated 12/19/2016 HISTORY: Severe difficulty breathing CT DLP: 966 mGycm. Automated Exposure Control for Dose Reduction was Utilized. TECHNIQUE: CT scan of the thorax is performed without IV contrast. FINDINGS: LUNGS: Moderate right and small left pleural effusions with intrafissural fluid on the right are seen with associated subsegmental compressive atelectasis. Additionally dependent groundglass opacities a nd mild interstitial thickening relate to pulmonary edema and atelectasis. Calcified left lower lung 7 mm granuloma is incidentally noted. MEDIASTINUM: Lack of IV contrast is noted to limit evaluation for mediastinal and especially hilar ad enopathy. Enlarged right paratracheal lymph node measures 1.3 cm in short axis. Prominent right hilar lymph node measures 1.0 cm in short axis is present. Dense three-vessel moderate to severe coronary artery calcifications are present. Mild to moderate calcific atherosclerosis is seen of the thoracic aorta. Ascending aorta is within normal limits of size measuring up to 3.5 cm as is the main pulmonar y artery measuring up to 2.8 cm. Low-density right middle lobe atelectasis abuts the mediastinal surf mckay. OTHER: Multiple prominent left axillary lymph nodes are seen, asymmetric to the right measuring up to 1.0 cm in short axis. Bilateral retroareolar gynecomastia is incidentally noted. Small hiatal hernia is seen. A small amount of perihepatic fluid is also noted. Central mesenteric haziness is likely related to f luid overload. Mild pancreatic atrophy is noted as is surgical absence of the gallbladder. Cortical r enal atrophy is present bilaterally with a small hypoattenuated right upper pole 6 mm renal cyst. Maicol ateral humeral arthroplasties are present. Extensive degenerative changes of the thoracic spine are seen with bridging anterior osteophytes poss ibly related to diffuse idiopathic skeletal hyperostosis. There is also intervertebral disc space hero rowing and endplate sclerosis as well as facet arthropathy at multiple levels throughout the thoracic spine. IMPRESSION: 1. Moderate right pleural effusion, small left pleural effusion, mild interstitial edema, and cardiom egaly are most compatible with decompensated congestive heart failure. 2. Single enlarged mediastinal lymph node in left axillary adenopathy are nonspecific. This could be reactive, inflammatory, or neoplastic. Consideration could be given to short-term follow-up or percut aneous biopsy. 3. Moderate to severe three-vessel coronary artery calcifications, a marker for coronary artery disea se. 4. Benign left lower lobe pulmonary granuloma. 5. Trace ascites and mesenteric congestion are likely related to fluid overload.
--- NOTE | 2017-01-16 12:19 | US ---
EXAMINATION TYPE: US venous doppler duplex LE BI DATE OF EXAM: 01/16/2017 12:02 PM COMPARISON: NONE CLINICAL HISTORY: R06.00 Dysnea upon exhertion,I26.99 PE. Edema bilateral legs, SOB SIDE PERFORMED: Bilateral TECHNIQUE: The lower extremity deep venous system is examined utilizing real time linear array sonog myles with graded compression, doppler sonography and color-flow sonography. VESSELS IMAGED: External Iliac Vein (EIV) Common Femoral Vein Deep Femoral Vein Greater Saphenous Vein * Femoral Vein Popliteal Vein Small Saphenous Vein * Proximal Calf Veins (* superficial vessels) Right Leg: No evidence of DVT Left Leg: No evidence of DVT IMPRESSION: 1. No diagnostic evidence of DVT.
[2017-01-16 13:09] LABS: Anisocytosis Slight; Basophils % (A) 0 %; CH 23.5; CHCM 29.9; Eosinophils # (A) 0.1 k/uL (0-0.7); Eosinophils % (A) 1 %; HCT 37.7 % (39.0-53.0); HGB 11.5 gm/dL (13.0-17.5); Hypochromasia Marked; Luc # (Auto) 0.08; Luc % (Auto) 1; Lymphocytes # (A) 0.8 k/uL (1.0-4.8); Lymphocytes % (A) 7 %; MCH 23.9 pg (25.0-35.0); MCHC 30.4 g/dL (31.0-37.0); MCV 78.8 fL (80.0-100.0); Mean Platelet Volume 8.3; Microcytosis Slight; Monocytes # (A) 0.6 k/uL (0-1.0); Monocytes % (A) 5 %; Neutrophils # (A) 9.4 k/uL (1.3-7.7); Neutrophils % (A) 86 %; RBC 4.79 m/uL (4.30-5.90); RDW 18.8 % (11.5-15.5); WBC (Perox) 12.12
[2017-01-16 13:21] LABS: Calcium 9.2 mg/dL (8.4-10.2); Potassium 4.6 mmol/L (3.5-5.1); Total Bilirubin 1.9 mg/dL (0.2-1.3); Total Protein 7.2 g/dL (6.3-8.2)
== END | disposition home or self-care (01) ==
LOC: RADUSMAIN 10:58
PROVIDERS: ATTEND Internal Medicine Critical Care Medicine
DX: J90 Pleural effusion, not elsewhere classified (principal); R60.0 Localized edema; I51.7 Cardiomegaly; R59.0 Localized enlarged lymph nodes; I25.10 Atherosclerotic heart disease of native coronary artery without angina pectoris; J98.4 Other disorders of lung; Z86.711 Personal history of pulmonary embolism; Z91.09 Other allergy status, other than to drugs and biological substances
CPT/HCPCS: 71020; 71250; 80053; 83880; 85025; 93970

== ENCOUNTER 2017-01-22 10:49 | Day surgery (SDC) | payer MEDICARE, BC ==
[2017-01-22 11:54] VITALS: BP 146/63; PULSE 68; RESP 18
[2017-01-22 11:56] VITALS: TEMP 98.3
--- NOTE | 2017-01-22 12:56 | US ---
EXAMINATION TYPE: US chest DATE OF EXAM: 01/22/2017 COMPARISON: CT CLINICAL HISTORY: J91.8 Pleural Effusion. EXAM MEASUREMENTS: Right Pleural Effusion fluid pocket: 7.5 cm Right skin to fluid thickness: 3.7 cm lung noted near top of fluid Right side marked for possible thoracentesis outside the dept. Pulmonologists are able to review the images in the patient?s EMR. IMPRESSIONS: Right pleural effusion.
--- NOTE | 2017-01-22 13:04 | P.PCN ---
Date of Procedure: 01/22/17 Preoperative Diagnosis: right sided pleural effusion Postoperative Diagnosis: Right-sided pleural effusion Procedure(s) Performed: Thoracentesis Anesthesia: local Surgeon: Casper Shah Estimated Blood Loss (ml): 0 Pathology: other Condition: stable Disposition: same day Operative Findings: It procedure was done under sterile techniques. The patient was placed in position in the usual fashion with arms extended at the bedside table. Ultrasound markings of the right-sided pleural effusion was obtained. The skin was infiltrated with local percent lidocaine and local anesthesia was applied. Following that, the skin was incised using a scalpel and a thoracentesis catheter was successfully inserted into the right hemithorax and a total of 1.6 L of turbid dark yellowish pleural effusion was drained from the right lung without any complications. The chest x-ray showed adequate expansion of right lung without any pneumothorax. Note that at the end of the procedure the catheter was removed and appropriate dressing was applied. The fluid will be sent for analysis, LDH, protein, and cytology.
--- NOTE | 2017-01-22 13:17 | XR ---
EXAMINATION TYPE: XR chest 1V portable DATE OF EXAM: 01/22/2017 COMPARISON: Prior chest x-ray 01/16/2017 HISTORY: Status post right thoracentesis TECHNIQUE: Single frontal view of the chest is obtained. FINDINGS: There is improved visualization of the right lower lobe, right hemidiaphragm. No evident s izable pneumothorax, patient is rotated. No other significant interval change. IMPRESSION: No evident complication status post thoracentesis, follow-up as indicated, rotated almaz ble exam may be limited.
[2017-01-22 13:48] LABS: Total Protein 7.6 g/dL (6.3-8.2)
[2017-01-22 21:44] LABS: Calcium 9.4 mg/dL (8.4-10.2); Potassium 4.1 mmol/L (3.5-5.1); Total Bilirubin 1.3 mg/dL (0.2-1.3); Total Protein 7.1 g/dL (6.3-8.2)
== END 2017-01-22 15:11 ==
LOC: PROCWHC3 10:49 → EDSTATUS 11:00 → PROCWHC3 15:11
PROVIDERS: ATTEND Internal Medicine Critical Care Medicine
DX: J91.8 Pleural effusion in other conditions classified elsewhere (principal)
CPT/HCPCS: 32554; 36415; 71010; 76604; 80053; 82945; 83615; 84155; 84157; 87070; 87075; 87205; 88108; 88305; 88341; 88342; 89050

== ENCOUNTER → 2017-03-04 | Outpatient (CLI) | payer MEDICARE, BC ==
[2017-03-04 21:06] LABS: Albumin 4.4 g/dL (3.5-5.0); Calcium 9.7 mg/dL (8.4-10.2); Potassium 4.8 mmol/L (3.5-5.1); Total Bilirubin 1.1 mg/dL (0.2-1.3); Total Protein 8.3 g/dL (6.3-8.2)
== END | disposition home or self-care (01) ==
LOC: MMGSC 14:41
PROVIDERS: ATTEND Internal Medicine Critical Care Medicine
DX: I50.9 Heart failure, unspecified (principal)
CPT/HCPCS: 36415; 80053

== ENCOUNTER → 2017-04-02 | Outpatient (CLI) | payer MEDICARE, BC ==
--- NOTE | 2017-04-02 15:40 | US ---
EXAMINATION TYPE: US kidneys/renal and bladder DATE OF EXAM: 04/02/2017 COMPARISON: CT chest abdomen and pelvis February 06, 2017 CLINICAL HISTORY: N28.9 Disorder of kidney and ureter unspecified. No symptoms per patient EXAM MEASUREMENTS: Right Kidney: 10.2 x 4.7 x 4.8 cm Left Kidney: 11.1 x 3.7 x 5.1 cm Right Kidney: cortical thinning Left Kidney: cortical thinning Bladder: wnl Bilateral Jets seen: no There is no evidence for hydronephrosis at this point in time. No nephrolithiasis is seen. No angel s are identified. The urinary bladder is not greatly distended. Bilateral ureteral jets are not see n. IMPRESSION: No hydronephrosis is evident bilaterally. Evidence of chronic medical renal disease with some cortica l thinning bilaterally redemonstrated.
== END | disposition home or self-care (01) ==
LOC: RADUSWWP 14:13
PROVIDERS: ATTEND Internal Medicine
DX: N28.89 Other specified disorders of kidney and ureter (principal)
CPT/HCPCS: 76770

== ENCOUNTER → 2017-04-04 | Outpatient (CLI) | payer MEDICARE, BC ==
--- NOTE | 2017-04-06 08:07 | PE ---
EXAMINATION TYPE: PET CT fusion skull to thigh DATE OF EXAM: 04/04/2017 COMPARISON: CT chest abdomen pelvis 02/06/2017 Prior PET/CT: None at this location. HISTORY: History of prostate cancer, solitary pulmonary nodule right lung TECHNIQUE: Following the intravenous administration of 13.77 mCi of F-18 FDG, whole body images are performed from the skull base to the midthigh. Images are reviewed on the computer in the coronal, a xial, and sagittal planes. Reconstructed rotating images are created on independent workstation and reviewed on the computer. A localization and attenuation correction CT is performed in conjunction with the PET scan. DLP: 440.91 mGycm SCAN: Initial Blood glucose: 152 mg/dL Average Mediastinum SUV: 1.11 Average Liver SUV: 2.16 FINDINGS: NECK: Some paraspinal muscular activity is noted. Right pectoralis muscle activity is noted. Right s houlder activity in the musculature is noted. No suspicious uptake is identified. THORAX: Paraspinal muscular activity upper thoracic region is present. There is a calcified nodule wi thin the superior segment right lower lobe. Image 102. No abnormal there is a right pleural effusion. Uptake is evident. ABDOMEN: Liver is had heterogenous signal. Suspicious focal uptake is not identified. Left paraspinal muscular activity is in the abdomen region. No suspicious uptake is identified. PELVIS: Intense uptake is to the gluteal muscles. No suspicious uptake is evident. OSSEOUS STRUCTURES: No abnormal uptake. LOCALIZATION CT: The nodule within the left lung is calcified and measures 0.7 cm. The right pleural effusion is small to moderate size. Bilateral shoulder prostheses are noted. Kidneys appear somewhat atrophic. Few scattered diverticuli are within the sigmoid colon. COMPARISON: No significant change from the comparison chest abdomen pelvis CT is evident. Note is mad e of resolution of previous right lower lobe consolidation. IMPRESSION: 1. The nodule within the left lung is calcified can be compatible with a granuloma. No suspicious rig ht lung nodules are evident. There is a small right pleural effusion. 2. There is moderately extensive muscular activity throughout this examination which may limit portio ns of the exam. 3. No suspicious uptake to suggest metastatic disease is identified.
== END | disposition home or self-care (01) ==
LOC: RADPETMAIN 10:00
PROVIDERS: ATTEND Internal Medicine Hematology & Oncology
DX: R91.1 Solitary pulmonary nodule (principal); J90 Pleural effusion, not elsewhere classified
CPT/HCPCS: 78815; A9552

== ENCOUNTER 2018-03-04 11:55 | Inpatient (IN) | payer MEDICARE, BC ==
[2018-03-04] MEDS ORDERED: IPRATROPIUM-ALBUTEROL 3 ML NEB INHALATION STA (12:06)
--- NOTE | 2018-03-04 12:08 | ED ---
SOB HPI - General Chief Complaint: Shortness of Breath Stated Complaint: KATLYN Time Seen by Provider: 03/04/18 12:06 Source: patient, RN notes reviewed, old records reviewed Mode of arrival: wheelchair Limitations: no limitations - History of Present Illness Initial Comments: This is an 82-year-old male the ER for evaluation patient presents for evaluation of shortness of breath. Patient does have continued significant shortness of breath currently. Patient was transferred to Hospital from cardiology for evaluation regarding significant shortness of breath that occurred during stress test. Patient states he still does feel short of breath , denies chest pain is abdominal pain denies any other symptoms. No current symptoms prior to stress test no fevers. No other issue MD Complaint: shortness of breath -: minutes(s) Radiation: other (No pain) Severity: moderate (Improve with increased oxygenation) Severity scale (1-10): 5 Consistency: constant Improves With: oxygen Worsens With: exertion Known History Of: congestive heart failure Treatments Prior to Arrival: none - Related Data Home Medications Medication Instructions Recorded Confirmed Atorvastatin Calcium 80 mg PO PC-SUPPER 12/15/13 03/04/18 Nitroglycerin Sl Tabs [Nitrostat] 0.4 mg PO Q5M PRN 12/15/13 03/04/18 Zolpidem Tartrate 10 mg PO HS 12/15/13 03/04/18 amLODIPine [Norvasc] 10 mg PO PC-SUPPER 12/15/13 03/04/18 Hydrocodone/Acetaminophen [[place] 1 tab PO Q6HR PRN 10/18/16 03/04/18 10-325] Loratadine [Claritin] 10 mg PO DAILY 12/19/16 03/04/18 Furosemide [Lasix] 40 mg PO DAILY 03/04/18 03/04/18 Lisinopril [Zestril] 2.5 mg PO DAILY 03/04/18 03/04/18 Spironolactone 25 mg PO DAILY 03/04/18 03/04/18 sitaGLIPtin [Januvia] 50 mg PO DAILY 03/04/18 03/04/18 Allergies Allergy/AdvReac Type Severity Reaction Status Date / Time Iodinated Contrast- Oral and Allergy KIDNEY Verified 03/04/18 12:20 IV Dye FAILURE iodine Allergy kidney Verified 03/04/18 12:04 shutdown Review of Systems ROS Statement: Those systems with pertinent positive or pertinent negative responses have been documented in the HPI. ROS Other: All systems not noted in ROS Statement are negative. Past Medical History Past Medical History: Atrial Fibrillation, Cancer, Heart Failure, Hyperlipidemia , Hypertension Additional Past Medical History / Comment(s): prostate ca 1.5 year ago. radiation (last tx 07/08) History of Any Multi-Drug Resistant Organisms: None Reported Date of last positivie culture/infection: 2006(per family) MDRO Source:: face/neck Past Surgical History: Cholecystectomy, Heart Catheterization With Stent, Hernia Repair, Joint Replacement, Orthopedic Surgery Additional Past Surgical History / Comment(s): cardioversions; BL shoulders replaced; amputation of left index finger; BL cataracts Past Anesthesia/Blood Transfusion Reactions: No Reported Reaction Additional Past Anesthesia/Blood Transfusion Reaction / Comment(s): clausterphobia... previous blood transfusion-no reaction to it. Date of Last Stent Placement:: 2010 Past Psychological History: No Psychological Hx Reported Smoking Status: Former smoker Past Alcohol Use History: Occasional Past Drug Use History: None Reported - Past Family History Father Family Medical History: Myocardial Infarction ([place]) Additional Family Medical History / Comment(s): at age 61-mi Mother Family Medical History: CVA/TIA Additional Family Medical History / Comment(s): at age 83 from stroke General Exam Limitations: no limitations General appearance: alert, in no apparent distress, anxious Head exam: Present: atraumatic, normocephalic, normal inspection Eye exam: Present: normal appearance, PERRL, EOMI. Absent: scleral icterus, conjunctival injection, periorbital swelling ENT exam: Present: normal exam, mucous membranes moist Neck exam: Present: normal inspection. Absent: tenderness, meningismus, lymphadenopathy Respiratory exam: Present: normal lung sounds bilaterally, accessory muscle use , decreased breath sounds, prolonged expiratory. Absent: respiratory distress, wheezes, rales, rhonchi, stridor Cardiovascular Exam: Present: regular rate, normal rhythm, normal heart sounds. Absent: systolic murmur, diastolic murmur, rubs, gallop, clicks GI/Abdominal exam: Present: soft, normal bowel sounds. Absent: distended, tenderness, guarding, rebound, rigid Extremities exam: Present: normal inspection, full ROM, normal capillary refill. Absent: tenderness, pedal edema, joint swelling, calf tenderness Back exam: Present: normal inspection Neurological exam: Present: alert, oriented X3, CN II-XII intact Psychiatric exam: Present: normal affect, normal mood Skin exam: Present: warm, dry, intact, normal color. Absent: rash Course Vital Signs 03/04/18 03/04/18 03/04/18 12:01 13:58 14:17 Temperature 97.7 F Pulse Rate 77 61 Respiratory 18 16 Rate Blood Pressure 132/54 O2 Sat by Pulse 96 Oximetry 03/04/18 14:26 Temperature Pulse Rate 63 Respiratory Rate Blood Pressure O2 Sat by Pulse Oximetry - Reevaluation(s) Reevaluation #1: 03/04/18 12:42 Medical record is reviewed Reevaluation #2: 03/04/18 12:42 Patient has no improvement with breathing treatment Reevaluation #3: 03/04/18 16:12 Patient's remains significantly short of breath Medical Decision Making - Medical Decision Making 82 male the ER for evaluation significant shortness of breath, patient has elevated troponin suspect underlying CHF as well as possible PE, patient be admitted for cardiology and pulmonology evaluation - Lab Data Result diagrams: 03/04/18 13:30 03/04/18 13:30 Lab Results 03/04/18 03/04/18 03/04/18 Range/Units 13:30 13:30 13:30 WBC 8.9 (3.8-10.6) k/uL RBC 4.94 (4.30-5.90) m/uL Hgb 12.3 L (13.0-17.5) gm/dL Hct 40.1 (39.0-53.0) % MCV 81.3 (80.0-100.0) fL MCH 24.8 L (25.0-35.0) pg MCHC 30.6 L (31.0-37.0) g/dL RDW 15.1 (11.5-15.5) % Plt Count 209 (150-450) k/uL Neutrophils % 79 % Lymphocytes % 10 % Monocytes % 5 % Eosinophils % 1 % Basophils % 1 % Neutrophils # 7.0 (1.3-7.7) k/uL Lymphocytes # 0.9 L (1.0-4.8) k/uL Monocytes # 0.5 (0-1.0) k/uL Eosinophils # 0.1 (0-0.7) k/uL Basophils # 0.1 (0-0.2) k/uL Hypochromasia Moderate PT 12.0 (9.0-12.0) sec INR 1.2 H (<1.2) APTT 24.2 (22.0-30.0) sec D-Dimer 2.59 H (<0.60) mg/L FEU Sodium 142 (137-145) mmol/L Potassium 2.8 L (3.5-5.1) mmol/L Chloride 91 L (98-107) mmol/L Carbon Dioxide 37 H (22-30) mmol/L Anion Gap 14 mmol/L BUN 38 H (9-20) mg/dL Creatinine 1.44 H (0.66-1.25) mg/dL Est GFR (CKD-EPI)AfAm 52 (>60 ml/min/1.73 sqM) Est GFR (CKD-EPI)NonAf 45 (>60 ml/min/1.73 sqM) Glucose 117 H (74-99) mg/dL Calcium 8.8 (8.4-10.2) mg/dL Magnesium 1.7 (1.6-2.3) mg/dL Total Bilirubin 2.0 H (0.2-1.3) mg/dL AST 100 H (17-59) U/L ALT 20 L (21-72) U/L Alkaline Phosphatase 270 H (38-126) U/L Total Creatine Kinase (55-170) U/L CK-MB (CK-2) (0.0-2.4) ng/mL CK-MB (CK-2) Rel Index Troponin I (0.000-0.034) ng/mL NT-Pro-B Natriuret Pep pg/mL Total Protein 6.8 (6.3-8.2) g/dL Albumin 3.4 L (3.5-5.0) g/dL 03/04/18 03/04/18 Range/Units 13:30 13:30 WBC (3.8-10.6) k/uL RBC (4.30-5.90) m/uL Hgb (13.0-17.5) gm/dL Hct (39.0-53.0) % MCV (80.0-100.0) fL MCH (25.0-35.0) pg MCHC (31.0-37.0) g/dL RDW (11.5-15.5) % Plt Count (150-450) k/uL Neutrophils % % Lymphocytes % % Monocytes % % Eosinophils % % Basophils % % Neutrophils # (1.3-7.7) k/uL Lymphocytes # (1.0-4.8) k/uL Monocytes # (0-1.0) k/uL Eosinophils # (0-0.7) k/uL Basophils # (0-0.2) k/uL Hypochromasia PT (9.0-12.0) sec INR (<1.2) APTT (22.0-30.0) sec D-Dimer (<0.60) mg/L FEU Sodium (137-145) mmol/L Potassium (3.5-5.1) mmol/L Chloride (98-107) mmol/L Carbon Dioxide (22-30) mmol/L Anion Gap mmol/L BUN (9-20) mg/dL Creatinine (0.66-1.25) mg/dL Est GFR (CKD-EPI)AfAm (>60 ml/min/1.73 sqM) Est GFR (CKD-EPI)NonAf (>60 ml/min/1.73 sqM) Glucose (74-99) mg/dL Calcium (8.4-10.2) mg/dL Magnesium (1.6-2.3) mg/dL Total Bilirubin (0.2-1.3) mg/dL AST (17-59) U/L ALT (21-72) U/L Alkaline Phosphatase (38-126) U/L Total Creatine Kinase 171 H (55-170) U/L CK-MB (CK-2) 1.1 (0.0-2.4) ng/mL CK-MB (CK-2) Rel Index 0.6 Troponin I 0.060 H* (0.000-0.034) ng/mL NT-Pro-B Natriuret Pep 3540 pg/mL Total Protein (6.3-8.2) g/dL Albumin (3.5-5.0) g/dL - EKG Data -: EKG Interpreted by Me (EKG shows A. fib rate of 63, QRS 90, QTc 519) - Radiology Data Radiology results: report reviewed (S x-ray is insignificant for acute changes) , image reviewed Critical Care Time Critical Care Time: Yes Total Critical Care Time: 31 Disposition Clinical Impression: Diastolic CHF, acute on chronic, Elevated troponin Narrative: r/o PE Disposition: ADMITTED IP TO THIS HOSP Condition: Fair Is patient prescribed a controlled substance at d/c from ED?: No Referrals: Cam Nichole MD [Primary Care Provider] - 1-2 days
--- NOTE | 2018-03-04 13:56 | XR ---
EXAMINATION TYPE: XR chest 2V DATE OF EXAM: 03/04/2018 COMPARISON: Prior chest x-rays 01/30/2017, 01/22/2017 HISTORY: Difficulty breathing TECHNIQUE: Frontal and lateral views of the chest are obtained. FINDINGS: Bilateral shoulder prostheses are again noted, heart remains enlarged. There are overlying cardiac leads. No evident pneumothorax or pleural effusion. Minimal patchy density at the posterior costophrenic angle persists. Pulmonary vascularity and hakan are unchanged. There is increased AP saúl meter chest possibly indicative of COPD. Surgical clips present in the upper abdomen. IMPRESSION: Findings of the posterior costophrenic sulcus may be due to chronic pleural reaction, sc ar or effusion, difficult to exclude some minimal basilar atelectasis, airspace disease.
[2018-03-04 14:02] LABS: Basophils # (A) 0.1 k/uL (0-0.2); Basophils % (A) 1 %; Eosinophils # (A) 0.1 k/uL (0-0.7); Eosinophils % (A) 1 %; HCT 40.1 % (39.0-53.0); HGB 12.3 gm/dL (13.0-17.5); Hypochromasia Moderate; Lymphocytes # (A) 0.9 k/uL (1.0-4.8); Lymphocytes % (A) 10 %; MCH 24.8 pg (25.0-35.0); MCHC 30.6 g/dL (31.0-37.0); MCV 81.3 fL (80.0-100.0); Mean Platelet Volume 7.6; Monocytes # (A) 0.5 k/uL (0-1.0); Monocytes % (A) 5 %; Neutrophils % (A) 79 %; Platelet Count 209 k/uL (150-450); RBC 4.94 m/uL (4.30-5.90); RDW 15.1 % (11.5-15.5); WBC 8.9 k/uL (3.8-10.6)
[2018-03-04 14:04] LABS: Albumin 3.4 g/dL (3.5-5.0); Calcium 8.8 mg/dL (8.4-10.2); Magnesium 1.7 mg/dL (1.6-2.3); Potassium 2.8 mmol/L (3.5-5.1); Total Protein 6.8 g/dL (6.3-8.2)
[2018-03-04] MEDS ORDERED: POTASSIUM BICARBONATE/CIT AC 20 MEQ TABLET.EFF PO ONE (14:18)
[2018-03-04 14:29] LABS: Creatine Kinase MB 1.1 ng/mL (0.0-2.4)
[2018-03-04 14:43] LABS: INR 1.2 (<1.2); Partial Thromboplastin Time 24.2 sec (22.0-30.0)
[2018-03-04 14:46] LABS: Troponin I 0.06 ng/mL (0.000-0.034)
[2018-03-04 15:15] LABS: D-Dimer 2.59 mg/L FEU (<0.60)
[2018-03-04] MEDS ORDERED: SODIUM CHLORIDE 0.9% 1,000 ML IV STA (15:37)
[2018-03-04] MEDS ORDERED: HEPARIN SODIUM,PORCINE 5,000 UNIT/ML 1 ML VIAL IV ONE (16:08)
[2018-03-04] MEDS ORDERED: NITROGLYCERIN SL TABS 0.4 MG TAB SUBLINGUAL PRN ×2 (16:08→22:26)
[2018-03-04] MEDS ORDERED: HEPARIN SODIUM,PORCINE 5,000 UNIT/ML 1 ML VIAL IV PRN (16:08)
[2018-03-04] MEDS ORDERED: LORazepam 2 MG/ML INJ IV STA ×2 (17:29→17:30)
--- NOTE | 2018-03-04 18:31 | NM ---
EXAMINATION TYPE: NM pul perfusion DATE OF EXAM: 03/04/2018 COMPARISON: NONE HISTORY: Following administration of 5.16 mCi Tc 99m MAA. Images obtained post injection. FINDINGS: There is normal uniform perfusion of both lungs. There is no segmental or subsegmental defect. IMPRESSION: Normal perfusion lung scan. There is very low probability of pulmonary embolism.
[2018-03-04] MEDS: HEPARIN SOD,PORK IN 0.45% NACL 25,000 UNIT in 0.45% NACL 1 250ML.BAG IV SCH (19:24)
[2018-03-04] MEDS ORDERED: IPRATROPIUM-ALBUTEROL 3 ML NEB INHALATION SCH (20:00)
[2018-03-04 20:30] LABS: Creatine Kinase MB 1.3 ng/mL (0.0-2.4)
[2018-03-04 20:33] LABS: Troponin I 0.072 ng/mL (0.000-0.034)
[2018-03-04] MEDS ORDERED: IPRATROPIUM-ALBUTEROL 3 ML NEB INHALATION PRN (21:46)
[2018-03-04] MEDS: HYDROcodone/APAP 10-325MG 1 EACH TAB PO PRN (22:51)
[2018-03-04] MEDS: ZOLPIDEM 10 MG TAB PO SCH (22:51)
[2018-03-05 03:03] LABS: Mean Platelet Volume 7.5; Platelet Count 230 k/uL (150-450)
[2018-03-05 03:17] LABS: Creatine Kinase MB 1.4 ng/mL (0.0-2.4)
[2018-03-05 03:58] LABS: Troponin I 0.071 ng/mL (0.000-0.034)
[2018-03-05] MEDS: IPRATROPIUM-ALBUTEROL 3 ML NEB INHALATION SCH ×4 (07:37→20:04)
--- NOTE | 2018-03-05 09:08 | CONS ---
CONSULTATION CHIEF COMPLAINT: Chest pain. Evert is an 82-year-old gentleman with morbid obesity, sleep apnea, coronary artery disease, status post angioplasty of LAD, COPD, hypertension, who is admitted to hospital with shortness of breath. The patient was at Dr. Jerome's office to undergo a stress test, was found to be significantly short of breath, due to which he was sent to the ER where he had an elevated D-dimer, went on to have a V/Q scan that was low probability. Troponin was mildly elevated. Following which he was admitted to the hospital. The patient has chronic persistent atrial fibrillation. He denies chest pain, palpitations, dizziness or syncope. At the time of my evaluation this morning, he is lying comfortably in bed and is free of free of shortness of breath or chest pain. His creatinine is elevated at 1.44, and he has had prior history of renal failure. His tropes are elevated at 0.06, 0.07 and 0.07 with no definite pattern to it. BNP is elevated at 3540. Patient's clinical presentation could be due to acute onset diastolic heart failure, could be due to non ST-segment elevation ID or his troponin elevation could be related to renal insufficiency. In any event, patient has had renal failure with intravenous contrast and cardiac catheterization. We will be very careful before proceeding with cardiac catheterization. His BUN and creatinine are at 38 and 1.4 while his BNP is elevated. Clinically, he does not seem to be in full overt heart failure. There is no leg edema. Chest x-ray does not reveal any pulmonary congestion. The plan at this stage is to continue the IV heparin that he is on, obtain a 2D echo to assess his systolic and diastolic function, control his blood pressure as well, give him aspirin, supplement the potassium, put him on nitrates and aspirin and decide on further course of action. PAST MEDICAL HISTORY: Significant for hypertension, COPD, morbid obesity, sleep apnea. CURRENT MEDICATIONS: Include Zestril 2.5 q. daily, Claritin, spironolactone 25 mg every 7 days, Norvasc 10 q. daily, atorvastatin 80 q. daily, Lasix 40 q. daily. ALLERGY: To IV DYE. FAMILY HISTORY: Negative for premature coronary artery disease. SOCIAL HISTORY: Negative for current smoking, EtOH abuse or drug abuse. REVIEW OF SYSTEMS: HEENT is unremarkable. CARDIAC: As described above. RESPIRATORY: As described above. GI: Negative. : Negative. ALLERGY/IMMUNOLOGY: Negative. SKIN: Negative. MUSCULOSKELETAL: Significant for arthritis. PSYCHOSOCIAL: Negative. ENDOCRINE: Negative. HEMATOLOGICAL: Negative. DERM: Negative. CONSTITUTIONAL: Negative. ONCOLOGICAL Negative The rest of the system review is not relevant. PHYSICAL EXAM: Afebrile. Vital signs are stable. There is no jugular venous distention. Chest exam reveals good air entry bilaterally. I do not hear any crackles or rhonchi. Heart exam reveals first and second heart sounds. No gallop. No murmur. No rub. Abdomen is soft, nontender. Exam of extremities did not reveal any edema. Peripheral pulses are palpable. LABS: Show a hemoglobin of 12.3. Potassium is 2.8, BUN is 38, creatinine is 1.4. Troponin is 0.06, 0.07 and 0.07. EKG shows atrial fibrillation with nonspecific ST-T wave changes. ASSESSMENT: 1. Mild troponin elevation probably due to non ST-segment elevation myocardial infarction. It could also be related to the renal insufficiency. 2. Chronic renal insufficiency. 3. Morbid obesity. 4. Chronic diastolic heart failure without any clinical evidence of acute exacerbation. 5. Chronic obstructive pulmonary disease. 6. Hypertension. PLAN: Continue the BiPAP. Hold the Lasix at this time. Continue aspirin. I will add nitrates. Continue the Zestril, supplement the potassium. Continue the IV heparin. Obtain a 2D echo and decide on further course of action. MMODL / IJN: [id number] /
[2018-03-05] MEDS: LISINOPRIL 2.5 MG TAB PO SCH (09:19)
[2018-03-05] MEDS: ASPIRIN 325 MG TAB PO SCH (09:19)
[2018-03-05] MEDS: amLODIPine 10 MG TAB PO SCH (09:19)
[2018-03-05] MEDS: ISOSORBIDE MONONITRATE ER 30 MG TAB.ER.24H PO SCH (09:20)
[2018-03-05] MEDS: ATORVASTATIN 80 MG TAB PO SCH (09:20)
[2018-03-05 10:16] LABS: Basophils # (A) 0.1 k/uL (0-0.2); Basophils % (A) 1 %; Eosinophils # (A) 0.2 k/uL (0-0.7); Eosinophils % (A) 3 %; HCT 37.2 % (39.0-53.0); HGB 11.8 gm/dL (13.0-17.5); Hypochromasia Moderate; Lymphocytes # (A) 0.8 k/uL (1.0-4.8); Lymphocytes % (A) 12 %; MCH 25.9 pg (25.0-35.0); MCHC 31.7 g/dL (31.0-37.0); MCV 81.7 fL (80.0-100.0); Mean Platelet Volume 7.9; Monocytes # (A) 0.5 k/uL (0-1.0); Monocytes % (A) 7 %; Neutrophils # (A) 4.9 k/uL (1.3-7.7); Neutrophils % (A) 74 %; Platelet Count 199 k/uL (150-450); RBC 4.55 m/uL (4.30-5.90); RDW 15.5 % (11.5-15.5); WBC 6.6 k/uL (3.8-10.6)
[2018-03-05 10:35] LABS: Calcium 8.4 mg/dL (8.4-10.2); Potassium 2.8 mmol/L (3.5-5.1)
[2018-03-05] MEDS ORDERED: Potassium Replacement Protocol 1 EACH MISC MISCELLANE PRN (12:58)
[2018-03-05] MEDS: POTASSIUM CHLORIDE ER 20 MEQ TAB.ER PO SCH ×6 (13:48→23:46)
--- NOTE | 2018-03-05 15:08 | CONS ---
CONSULTATION PULMONARY CRITICAL CARE CONSULTATION: DATE OF SERVICE: 03/05/2018 An 82-year-old male who presented to the emergency room for complaints of shortness of breath. The patient apparently was going to have a cardiac procedure done by Dr. Jerome and the patient was profoundly short of breath and sent to the emergency room. The patient apparently states that he was having shortness of breath for a couple days prior to admission, which was getting worse. The patient's shortness of breath is worse with exertion, but it occurs even at rest. He apparently did not have any chest pain or chest discomfort. There was no fever or chills. No nausea, vomiting or diarrhea. No diaphoresis. No abdominal complaints or genitourinary complaints. The patient was evaluated and thought to have congestive heart failure. HOME MEDICATIONS: Include Lipitor, nitroglycerin, Ambien, amlodipine, Nor Estevan, loratadine, Lasix, Zestril, Aldactone, AND Januvia. Apparently for the last 2 or 3 days prior to admission, he was not taking his Lasix. ALLERGIES: Include IODINE and IVP DYE. PAST MEDICAL HISTORY: Includes atrial fibrillation, heart failure, hyperlipidemia, hypertension, prostate cancer with radiation treatments. SURGICAL HISTORY: Includes cholecystectomy, heart catheterization with stent, hernia repair, joint replacement, orthopedic procedures, cardioversion, bilateral shoulder replacement, amputation of left index finger, and bilateral cataracts. SOCIAL HISTORY: Positive for previous tobacco use. He has occasional alcohol use. No illicit drug use. I should also point out in the past medical history that he does have a history of sleep apnea syndrome for which he sees Dr. Shah. FAMILY HISTORY: Positive for cardiac disease and stroke. REVIEW OF SYSTEMS: CONSTITUTIONAL: Decreased appetite, fatigue, weakness. NEUROLOGIC: Negative. HEENT: Negative. CARDIOVASCULAR: Negative. PULMONARY: Shortness of breath. GI:; Negative. RHEUMATOLOGIC: Negative. IMMUNOLOGIC: Negative. ENDOCRINOLOGIC: Negative. On further questioning, the patient also complains of some orthopnea, weight gain, lower extremity edema and increasing abdominal girth. This is despite the fact that he states he is not eating very much at all. PHYSICAL EXAMINATION: Current vital signs, good temperature 98, heart rate 66, respiratory rate 17, blood pressure 137/67 mean 90, 2 L saturation 95%. Appears in no acute distress. Sitting up at the bedside. HEENT examination is grossly unremarkable. Mucous membranes are moist. He has got 2 L of nasal O2 in place. Neck is supple. Full range of motion. No adenopathy, thyromegaly or neck vein distention. Cardiovascular examination reveals regular rhythm and rate. Heart sounds are very distant. S1, S2 normal. Lungs reveal basilar crackles. No wheezes. A few scattered rhonchi. Breath sounds are diminished at the bases. Breath sounds are equal bilaterally. Abdomen is obese. Bowel sounds are noted. Extremities are intact. There is significant 1 to 2+ pitting edema. Skin without rash. Neurologic examination is brief but nonfocal. A chest x-ray shows evidence of bilateral pleural effusions. V/Q scan is either normal or very low probability. LABORATORY DATA: Reviewed. White count 6.6, hemoglobin 11.8, hematocrit 37.2, platelet count 199,000. PT is 12, INR 1.2, PTT is 40.1. D-dimer is 2.59. Sodium 141, potassium 2.8, chloride 97, CO2 is 33, anion gap 11, BUN and creatinine were 34 and 1.19. His N-terminal proBNP was 3540. His troponins were 0.060, 0.072 and 0.071. ASSESSMENT: 1. Possible non ST-segment elevation myocardial infarction. 2. Morbid obesity. 3. History of chronic diastolic heart failure. 4. History of sleep apnea syndrome. 5. Possible chronic obstructive pulmonary disease. 6. Hypertension. 7. Chronic kidney disease. 8. Normal ventilation-perfusion lung scan. PLAN: The patient's medications have been adjusted by Cardiology. Will continue to follow. Additional recommendations and suggestions are forthcoming. I will add some breathing treatments. No additional recommendations are made. No steroids are needed. No active pulmonary infection at this time. MMODL / IJN: [id number] /
[2018-03-05] MEDS: HEPARIN SOD,PORK IN 0.45% NACL 25,000 UNIT in 0.45% NACL 1 250ML.BAG IV SCH (15:44)
--- NOTE | 2018-03-05 16:41 | HP ---
HISTORY AND PHYSICAL DATE OF ADMISSION: 03/04/2018 DATE OF SERVICE: 03/05/2018. PRESENTING COMPLAINT: Short of breath. HISTORY OF PRESENTING COMPLAINT: This is a pleasant 82-year-old patient of Dr. Cam Nichole. Chronic stable conditions include coronary artery disease with stent about 4 years ago, diverticulosis, hypertension, hyperlipidemia, obstructive sleep apnea, uses CPAP machine, chronic kidney disease, stage II, atrial fibrillation, chronic gout. Patient's last echocardiogram showed an EF of 60%. The patient had gone down to Dr. Jerome's office and was fdc through a stress test when patient became very short of breath and therefore was transferred here. Patient says that for 2 weeks he has been becoming increasingly short of breath, has a slight cough. No fever. No chills. Increasing edema in the lower extremity. Abdomen is more distended. Decreased appetite. Tired and rundown. Denies any fever or chills. The patient's and daughter are present. Patient also feels tight in his neck. REVIEW OF SYSTEMS: CONSTITUTIONAL: Tired. HEENT: As above. RESPIRATORY: As above. CARDIOVASCULAR: As above. GASTROINTESTINAL: None. GENITOURINARY: None. MUSCULOSKELETAL: Some pain in joints. DERMATOLOGICAL: None. HEMATOLOGICAL: None. LYMPHATICS: None. PSYCHIATRY: None. NEUROLOGICAL: None. PAST MEDICAL HISTORY: 1. Coronary artery disease with stent about 4 years ago. 2. Radiation proctitis. 3. Diverticulosis. 4. Hypertension. 5. Hyperlipidemia. 6. Prostate cancer. 7. Obstructive sleep apnea. Uses CPAP machine. 8. Chronic kidney disease, stage II. 9. Atrial fibrillation. 10.Congestive heart failure from diastolic dysfunction. Last EF was 60%. 11.Gout. 12.Macular degeneration. PAST SURGICAL HISTORY: 1. Cholecystectomy. 2. Cardiac cath with stent. 3. Hernia repair. 4. Joint replacement. 5. Cardioversion. 6. Bilateral shoulder replaced. 7. Amputation of left index finger. 8. Bilateral cataract surgery. 9. Cardioversion. 10.Cardiac ablation. SOCIAL HISTORY: Patient has one or two glasses of wine per day. Lives with his . 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 FAMILY HISTORY: Coronary artery disease. HOME MEDICATIONS: 1. IVite 1 capsule p.o. daily. 2. Lutein 20 mg p.o. daily. 3. Calcium 80 mg p.o. daily. 4. Norvasc 10 mg p.o. daily. 5. Aldactone 25 mg p.o. every 7 days. 6. Ambien 10 mg at bedtime. 7. Nitrostat 0.4 sublingually q.5 p.r.n. 8. Claritin 10 mg p.o. daily. 9. Zestril 2.5 mg a day. 10.Sherwood 10 one tablet q.6 p.r.n. 11.Lasix 40 mg a day. ALLERGIES: IV CONTRAST DYE. PHYSICAL EXAMINATION: VITAL SIGNS ON PRESENTATION: Temperature 97.7, pulse 77, respiration 18, blood pressure 132/54, pulse ox 96% on 5 L. GENERAL APPEARANCE: Well built; BMI 36.9. Sitting up on a chair. Short of breath. EYES: Pupils equal. Conjunctivae normal. HEENT: External appearance of nose and ears normal. Oral cavity normal. NECK: Neck veins are full. Mass not palpable. RESPIRATORY: Effort increased. LUNGS: Decreased breath sounds. Some basal crackles. CARDIOVASCULAR: Heart sounds irregular. Gross edema present up to the thighs. ABDOMEN: Distended, soft. Liver and spleen not palpable. LYMPHATIC: No lymph node palpable in neck or axillae. PSYCHIATRY: Alert and oriented x3. Mood and affect normal. NEUROLOGICAL: Pupils equal. Cranial nerves grossly intact. Power and sensation grossly intact. INVESTIGATIONS: White count 8.9, hemoglobin 12.3, platelets 209, potassium 2.8, BUN 38, creatinine 1.44, repeat 1.19. Troponin 0.060, 0.072. LDL 50. EKG tracing personally reviewed by me shows atrial fibrillation, rate controlled in the 60s. Chest x-ray film personally reviewed by me shows cardiomegaly, some venous prominence and small pleural effusion on the angles. ASSESSMENT: 1. Acute on chronic congestive heart failure exacerbation from underlying diastolic dysfunction, ejection fraction 60%, with a contribution from atrial fibrillation in a patient who has had significant edema, abdominal distention. Neck veins are full. Patient's BNP is elevated at 3540. Patient's creatinine initially was 1.44. Will give patient a trial of Lasix today for 24 hours to see how he does. 2. Coronary artery disease with prior history of stent. 3. Colonic diverticulosis. 4. Essential hypertension. 5. Hyperlipidemia. 6. Obstructive sleep apnea. Uses CPAP machine. 7. Chronic kidney disease, stage II, probably from nephrosclerosis. 8. Persistent atrial fibrillation. 9. Obesity; body mass index 36.9. PLAN: Will put the patient on Lasix drip, do strict I&Os. Fluid restriction of 1600 mL/day. Consultation was requested from Cardiology and Pulmonary. I do not have a recent echocardiogram. Will discuss with Cardiology. In the differential, acute non-ST- elevation myocardial infarction is possible. Will follow. MMODL / IJN: [id number] /
[2018-03-05 17:13] LABS: Magnesium 1.9 mg/dL (1.6-2.3); Potassium 3.1 mmol/L (3.5-5.1)
[2018-03-05] MEDS: FUROSEMIDE 250 MG in SODIUM CHLORIDE 0.9% 225 ML IVP SCH (18:05)
[2018-03-05] MEDS: HYDROcodone/APAP 10-325MG 1 EACH TAB PO PRN (19:57)
[2018-03-05] MEDS: ZOLPIDEM 10 MG TAB PO SCH (20:56)
[2018-03-06] MEDS: POTASSIUM CHLORIDE ER 20 MEQ TAB.ER PO SCH ×2 (01:45→03:37)
[2018-03-06 05:40] LABS: Glucose,Whole Blood 114 mg/dL (75-99)
--- NOTE | 2018-03-06 07:02 | ECHOF ---
Referral Reason:SOB MEASUREMENTS -------- HEIGHT: 180.3 cm WEIGHT: 116.1 kg BP: RVIDd: 4.6 cm (< 3.3) LAESV Index (A-L): 51.56 ml/m IVSd: 1.3 cm (0.6 - 1.1) LVIDd: 5.3 cm (3.9 - 5.3) LVPWd: 1.3 cm (0.6 - 1.1) IVSs: 1.6 cm LVIDs: 3.6 cm LVPWs: 1.7 cm EDV(Teich): 134 ml ESV(Teich): 53 ml EF(Teich): 61 % %FS: 33 % SV(Teich): 81 ml Ao Diam: 3.1 cm (2.0 - 3.7) AV Cusp: 2.2 cm (1.5 - 2.6) LA Diam: 5.0 cm (2.7 - 3.8) MV EXCURSION: 17.961 mm (> 18.000) MV EF SLOPE: 125 mm/s (70 - 150) EPSS: 1.2 cm MV E Jacob: 1.05 m/s MV DecT: 138 ms MV A Jacob: 0.54 m/s MV E/A Ratio: 1.94 RAP: 5.00 mmHg RVSP: 51.27 mmHg FINDINGS -------- Sinus rhythm. This was a technically difficult study with suboptimal views. The left ventricular size is normal. There is mild concentric left ventricular hypertrophy. Overa ll left ventricular systolic function is normal with, an EF between 55 - 60 %. The right ventricle is severely enlarged. LA is severely dilated >40 ml/m2 The right atrium is mildly enlarged. Lumason used Aortic valve is trileaflet and is mildly thickened. The mitral valve leaflets are mildly thickened. Mild mitral regurgitation is present. Mild tricuspid regurgitation present. There is moderate pulmonary hypertension. The right ventric ular systolic pressure, as measured by Doppler, is 51.27mmHg. Pulmonic valve appears structurally normal. The aortic root size is normal. IVC Not well visulized. The pericardium is normal. CONCLUSIONS -------- 1. Sinus rhythm. 2. This was a technically difficult study with suboptimal views. 3. The left ventricular size is normal. 4. There is mild concentric left ventricular hypertrophy. 5. The right ventricle is severely enlarged. 6. LA is severely dilated >40 ml/m2 7. The right atrium is mildly enlarged. 8. Lumason used 9. Aortic valve is trileaflet and is mildly thickened. 10. The mitral valve leaflets are mildly thickened. 11. Mild mitral regurgitation is present. 12. Mild tricuspid regurgitation present. 13. There is moderate pulmonary hypertension. 14. The right ventricular systolic pressure, as measured by Doppler, is 51.27mmHg. 15. Pulmonic valve appears structurally normal. 16. The aortic root size is normal. 17. IVC Not well visulized. 18. The pericardium is normal. SUPERINTENDENT STEVEDORING: Mary Alice Shirley RDCS
[2018-03-06 07:28] LABS: Mean Platelet Volume 7.6; Platelet Count 210 k/uL (150-450)
[2018-03-06] MEDS: HEPARIN SOD,PORK IN 0.45% NACL 25,000 UNIT in 0.45% NACL 1 250ML.BAG IV SCH (07:36)
[2018-03-06 07:53] LABS: Calcium 8.6 mg/dL (8.4-10.2)
[2018-03-06] MEDS: IPRATROPIUM-ALBUTEROL 3 ML NEB INHALATION SCH ×4 (08:28→19:19)
[2018-03-06] MEDS: ISOSORBIDE MONONITRATE ER 30 MG TAB.ER.24H PO SCH (08:40)
[2018-03-06] MEDS: amLODIPine 10 MG TAB PO SCH (08:40)
[2018-03-06] MEDS: LISINOPRIL 2.5 MG TAB PO SCH (08:40)
[2018-03-06] MEDS: ASPIRIN 325 MG TAB PO SCH (08:40)
[2018-03-06] MEDS: ATORVASTATIN 80 MG TAB PO SCH (08:40)
[2018-03-06] MEDS ORDERED: NON-FORMULARY DRUG (Lutein [Lutein] 20 MG) PO SCH (09:00)
--- NOTE | 2018-03-06 12:10 | XR ---
EXAMINATION TYPE: XR chest 2V DATE OF EXAM: 03/06/2018 HISTORY: sob. REFERENCE: Previous study dated 03/04/2018. FINDINGS: There are bilateral shoulder hemiarthroplasties in place. The heart is enlarged. The lungs appear clear. Pleural spaces are clear. IMPRESSION: CARDIOMEGALY.
[2018-03-06] MEDS: FUROSEMIDE 250 MG in SODIUM CHLORIDE 0.9% 225 ML IVP SCH (12:30)
--- NOTE | 2018-03-06 13:06 | P.PN ---
Subjective This is an 82-year-old male past medical history significant for coronary artery disease status post angioplasty of the LAD, COPD, hypertension, obstructive sleep apnea, chronic persistent atrial fibrillation and morbid obesity. He follows with Dr. Castillo in the office. He was sent to the hospital for significant shortness of breath. VQ scan was low probability for PE and he was noted to have a mildly elevated troponin. He has been started on a Lasix drip her primary care. No documentation of output recorded. He states he feels much less short of breath today. He denies symptoms of chest pain, dizziness or palpitations. Echocardiogram obtained reveals preserved LV systolic function with EF 55-60%, severely dilated LA, severely enlarged RV and moderate pulmonary hypertension with RVSP 51.27 mmHg. Blood pressure 130/62 heart rate 64 afebrile maintaining oxygen saturation on nasal cannula. Laboratory data reviewed, sodium 142, potassium 4, creatinine 1.28, and she proBNP 2039 down from 3540. Currently maintained on aspirin 325 mg daily, atorvastatin 80 mg daily, amlodipine 10 mg daily, heparin infusion, Imdur 30 mg daily, lisinopril 2.5 mg daily. Repeat chest x-ray reveals clear lungs and pleural spaces. Most recent cardiac catheterization performed in 2012 reveals a peak stent noted in the proximal LAD , distal LAD is diffusely diseased with the distal one third having an 80-90% stenosis of the blood vessels very small caliber, patent stent of the OM, RCA good caliber vessel in the PDA much smaller vessel with a 90% stenosis unchanged from prior. GENERAL: Well-appearing, well-nourished and in no acute distress. NECK: Supple without JVD or thyromegaly. LUNGS: Breath sounds clear to auscultation bilaterally. Respiration equal and unlabored. No wheezes, rales or rhonchi. HEART: Regular rate and rhythm without murmurs, rubs or gallops. S1 and S2 heard. EXTREMITIES: Normal range of motion, no edema. No clubbing or cyanosis. Peripheral pulses intact. ASSESSMENT Mild troponin elevation probably due to a non-ST segment elevation myocardial infarction but also could be related to renal insufficiency. Chronic renal insufficiency Chronic diastolic heart failure without evidence of acute exacerbation. Currently euvolemic. COPD Hypertension Morbid obesity PLAN Discontinue heparin infusion and placed on subcu heparin. Recommend maximum medical therapy. Discontinue Lasix drip and start Lasix 40 mg twice a day. Continue with current medical regimen otherwise with lisinopril, imdur, aspirin , atorvastatin and amlodipine. Repeat chest xray obtained and reviewed. Repeat BMP in the morning. The above impression and plan of care have been discussed and directed by the signing physician. Barbra Ruiz, nurse practitioner, acting as scribe for signing physician. Objective - Vital Signs Vital signs: Vital Signs Temp 97.0 F L 03/06/18 08:00 Pulse 64 03/06/18 08:00 Resp 20 03/06/18 08:00 BP 130/62 03/06/18 08:00 Pulse Ox 99 03/06/18 08:00 Intake & Output 03/05/18 03/06/18 03/06/18 18:59 06:59 18:59 Intake Total 559.747 434.167 Output Total 150 2000 Balance 409.747 -1565.833 Weight 116.2 kg Intake: IV 10 Invasive Line 1 10 Intake, IV Titration 169.747 434.167 Amount Furosemide 250 mg In 184.167 Sodium Chloride 0.9% 225 ml @ 10 MG/HR 10 mls/hr IVP .Q24H MARIA M Rx#: [id number] Heparin Sod,Pork in 0.45% 169.747 250 NaCl 25,000 unit In 0.45 % NaCl 1 250ml.bag @ 8.64 UNITS/KG/HR 9.99 mls/hr IV .Q24H MARIA M Rx#: [id number] Oral 380 Output: Urine 150 2000 Other: # Voids 1 1 - Labs CBC & Chem 7: 03/06/18 07:00 03/06/18 07:00 Labs: Abnormal Lab Results - Last 24 Hours (Table) 03/05/18 03/05/18 03/05/18 Range/Units 16:18 17:47 21:57 APTT 51.5 H (22.0-30.0) sec Potassium 3.1 L 3.2 L (3.5-5.1) mmol/L Carbon Dioxide (22-30) mmol/L BUN (9-20) mg/dL Creatinine (0.66-1.25) mg/dL Glucose (74-99) mg/dL POC Glucose (mg/dL) (75-99) mg/dL 03/06/18 03/06/18 03/06/18 Range/Units 05:39 07:00 07:00 APTT 53.3 H (22.0-30.0) sec Potassium (3.5-5.1) mmol/L Carbon Dioxide 31 H (22-30) mmol/L BUN 29 H (9-20) mg/dL Creatinine 1.28 H (0.66-1.25) mg/dL Glucose 105 H (74-99) mg/dL POC Glucose (mg/dL) 114 H (75-99) mg/dL
--- NOTE | 2018-03-06 13:19 | P.PN ---
Subjective Progress Note Date: 03/06/18 Principal diagnosis: Non-ST segment elevation myocardial infarction. This is a very pleasant 82-year-old gentleman with a known history of atrial fibrillation, congestive heart failure, morbid obesity. hyperlipidemia, hypertension, prostate cancer. He presented here on 03/04/2018 with complaints of increasing shortness of breath. He was being worked up by cardiology and was planning to have a cardiac catheterization done in the outpatient setting. He was suspected of having acute exacerbation of congestive heart failure and is being treated for the same. He is seen again today in follow-up on the cardiac care floor. He is awake and alert in no acute distress. His chest x- ray shows evidence of cardiomegaly. No acute process. He is alternating between his CPAP device and 5 L/m per nasal cannula. He is afebrile. Hemodynamically stable. Creatinine 1.28. He is on oral Lasix 40 mg twice a day. Objective - Vital Signs Vital signs: Vital Signs Temp 97.5 F L 03/06/18 12:00 Pulse 70 03/06/18 12:00 Resp 20 03/06/18 12:00 BP 126/56 03/06/18 12:00 Pulse Ox 100 03/06/18 12:00 Intake & Output 03/05/18 03/06/18 03/06/18 18:59 06:59 18:59 Intake Total 559.747 694.167 Output Total 150 2000 Balance 409.747 -1305.833 Weight 116.2 kg Intake: IV 10 Invasive Line 1 10 Intake, IV Titration 169.747 434.167 Amount Furosemide 250 mg In 184.167 Sodium Chloride 0.9% 225 ml @ 10 MG/HR 10 mls/hr IVP .Q24H MARIA M Rx#: [id number] Heparin Sod,Pork in 0.45% 169.747 250 NaCl 25,000 unit In 0.45 % NaCl 1 250ml.bag @ 8.64 UNITS/KG/HR 9.99 mls/hr IV .Q24H MARIA M Rx#: [id number] Oral 380 260 Output: Urine 150 2000 Other: # Voids 1 1 - Exam GENERAL EXAM: Alert, active, comfortable in no apparent distress. On nasal cannula. HEAD: Normocephalic. EYES: Normal reaction of pupils, equal size. NOSE: Clear with pink turbinates. THROAT: No erythema or exudates. NECK: No masses, no JVD. CHEST: No chest wall deformity. LUNGS: Equal air entry with crackles in the posterior bases. CVS: S1 and S2 normal with an audible murmur, irregular rhythm. ABDOMEN: No hepatosplenomegaly, normal bowel sounds, no guarding or rigidity. SPINE: No scoliosis or deformity SKIN: No rashes CENTRAL NERVOUS SYSTEM: No focal deficits, tone is normal in all 4 extremities. EXTREMITIES: There is trace peripheral edema. No clubbing, no cyanosis. Peripheral pulses are intact. - Labs CBC & Chem 7: 03/06/18 07:00 03/06/18 07:00 Labs: Abnormal Lab Results - Last 24 Hours (Table) 03/05/18 03/05/18 03/05/18 Range/Units 16:18 17:47 21:57 APTT 51.5 H (22.0-30.0) sec Potassium 3.1 L 3.2 L (3.5-5.1) mmol/L Carbon Dioxide (22-30) mmol/L BUN (9-20) mg/dL Creatinine (0.66-1.25) mg/dL Glucose (74-99) mg/dL POC Glucose (mg/dL) (75-99) mg/dL 03/06/18 03/06/18 03/06/18 Range/Units 05:39 07:00 07:00 APTT 53.3 H (22.0-30.0) sec Potassium (3.5-5.1) mmol/L Carbon Dioxide 31 H (22-30) mmol/L BUN 29 H (9-20) mg/dL Creatinine 1.28 H (0.66-1.25) mg/dL Glucose 105 H (74-99) mg/dL POC Glucose (mg/dL) 114 H (75-99) mg/dL Assessment and Plan Assessment: Impression: #1 Non-ST segment elevation myocardial infarction. #2 Acute on chronic hypoxic respiratory failure secondary to an acute exacerbation of diastolic congestive heart failure #3 Morbid obesity. #4 Obstructive sleep apnea utilizing CPAP. #5 Hypertension. #6 Acute on chronic kidney disease. Plan: The patient was seen and evaluated by Dr. Augustine. He is stable from the pulmonary standpoint. We'll await further plans from cardiology. We'll continue to follow. I, the cosigning physician, performed a history & physical examination of the patient. Lungs sounds crackles in the posterior bases. Maintaining good O2 saturations in the 90s on IV liters per minute per nasal cannula. I discussed the assessment and plan of care with my nurse practitioner, Serena Calderon. I attest to the above note as dictated by her.
[2018-03-06] MEDS: HYDROcodone/APAP 10-325MG 1 EACH TAB PO PRN ×2 (16:10→21:47)
[2018-03-06] MEDS: FUROSEMIDE 40 MG TAB PO SCH (16:10)
[2018-03-06] MEDS: VIT A,C & E-LUTEIN-MINERALS 1 EACH TAB PO SCH (17:29)
[2018-03-06] MEDS ORDERED: FUROSEMIDE 10 MG/ML 4 ML VIAL IV SCH (21:00)
[2018-03-06] MEDS: ZOLPIDEM 10 MG TAB PO SCH (21:47)
[2018-03-06] MEDS: HEPARIN SODIUM,PORCINE 5,000 UNIT/ML 1 ML VIAL SQ SCH (21:48)
[2018-03-07 06:59] LABS: Mean Platelet Volume 7.6; Platelet Count 208 k/uL (150-450)
--- NOTE | 2018-03-07 07:18 | PN ---
PROGRESS NOTE SERVICE: 03/06/2018 PRESENTING COMPLAINT: Short of breath. INTERVAL HISTORY: The patient presented with CHF exacerbation, overnight given Lasix drip to he diuresed well. Edema has gone down. Breathing is better. Seen by Dr. Trujillo this morning, switched to oral Lasix. Sitting up in a chair. at the bedside. Did tolerate a diet. Overall feeling better. REVIEW OF SYSTEMS: Done for constitutional, cardiovascular, GI, pulmonary; relevant findings as above. CURRENT MEDICATIONS: Reviewed that include p.o. Lasix 40 mg b.i.d. EXAMINATION: VITAL SIGNS: Temperature 98.5 pulse 72, respiration 17, blood pressure 132/62, pulse ox 99% on 5 L. GENERAL APPEARANCE: Sitting up in a chair, breathing better. EYES: Pupils equal. Conjunctivae normal. NECK: Veins are still prominent. Respiratory effort normal. LUNGS: Decreased breath sounds. CARDIOVASCULAR: Heart sounds normal. Decreased edema. ABDOMEN: Distended, soft. Liver and spleen not palpable. .PSYCHIATRY: Alert and oriented x3. Mood and affect normal INVESTIGATIONS: Potassium BUN 29, creatinine 1.28. ProBNP is 0. ASSESSMENT: 1. Acute on chronic congestive heart failure from diastolic dysfunction, EF 60% with clinical response. 2. Coronary artery disease with prior history of stent. 3. Colonic diverticulosis. 4. Essential hypertension. 5. Hyperlipidemia. 6. Obstructive sleep apnea, uses CPAP machine. 7. Chronic kidney stage 2 from nephrosclerosis. 8. Persistent atrial fibrillation. 9. Obesity, BMI 36.9. PLAN: Being switched to p.o. Lasix. Encourage the patient to ambulate. Talked to the patient and the . Hopefully can be discharged tomorrow. MMODL / IJN: [id number] /
[2018-03-07 07:20] LABS: Calcium 8.6 mg/dL (8.4-10.2); Potassium 3.9 mmol/L (3.5-5.1)
[2018-03-07] MEDS: IPRATROPIUM-ALBUTEROL 3 ML NEB INHALATION SCH ×3 (07:43→15:47)
[2018-03-07] MEDS ORDERED: ASPIRIN 81 MG PO SCH (09:00)
[2018-03-07] MEDS: amLODIPine 10 MG TAB PO SCH (10:29)
[2018-03-07] MEDS: ISOSORBIDE MONONITRATE ER 30 MG TAB.ER.24H PO SCH (10:29)
[2018-03-07] MEDS: ATORVASTATIN 80 MG TAB PO SCH (10:29)
[2018-03-07] MEDS: HEPARIN SODIUM,PORCINE 5,000 UNIT/ML 1 ML VIAL SQ SCH (10:29)
[2018-03-07] MEDS: LISINOPRIL 2.5 MG TAB PO SCH (10:29)
[2018-03-07] MEDS: FUROSEMIDE 40 MG TAB PO SCH (10:30)
[2018-03-07 10:34] VITALS: RESP 17
[2018-03-07] MEDS: HYDROcodone/APAP 10-325MG 1 EACH TAB PO PRN (10:36)
[2018-03-07] MEDS ORDERED: POTASSIUM CHLORIDE ER 20 MEQ TAB.ER PO SCH (11:15)
[2018-03-07] MEDS: VIT A,C & E-LUTEIN-MINERALS 1 EACH TAB PO SCH (11:52)
[2018-03-07 11:56] VITALS: BP 139/70; TEMP 97.7
[2018-03-07 12:23] VITALS: PULSE 80
--- NOTE | 2018-03-07 12:44 | P.PN ---
Subjective This is an 82-year-old male past medical history significant for coronary artery disease status post angioplasty of the LAD, COPD, hypertension, obstructive sleep apnea, chronic persistent atrial fibrillation and morbid obesity. He follows with Dr. Castillo in the office. He was sent to the hospital for significant shortness of breath. He is seen and examined sitting up in the chair with family at the bedside. He denies any ongoing shortness of breath, chest pain, dizziness or palpitations. Blood pressure 139/70 heart rate 75 afebrile maintaining oxygen saturation on room air. Laboratory data reviewed, sodium 139, potassium 3.9, creatinine mildly worse today at 1.48 up from 1.28 yesterday. GENERAL: Well-appearing, well-nourished and in no acute distress. NECK: Supple without JVD or thyromegaly. LUNGS: Breath sounds clear to auscultation bilaterally. Respiration equal and unlabored. No wheezes, rales or rhonchi. HEART: Regular rate and rhythm without murmurs, rubs or gallops. S1 and S2 heard. EXTREMITIES: Normal range of motion, no edema. No clubbing or cyanosis. Peripheral pulses intact. ASSESSMENT Mild troponin elevation probably due to a non-ST segment elevation myocardial infarction but also could be related to renal insufficiency. Chronic renal insufficiency Chronic diastolic heart failure without evidence of acute exacerbation. Currently euvolemic. COPD Hypertension Morbid obesity PLAN Stable for discharge from a cardiac perspective. Lengthy discussion had with the patient and his family regarding home medications. He is to discontinue Aldactone. He is to have follow-up BMP in 3 days. Home diuretics are Lasix 40 mg daily with the addition of potassium supplementation 20 MEQ. Follow-up in the office to finish stress testing this week. The above impression and plan of care have been discussed and directed by the signing physician. Barbra Ruiz, nurse practitioner, acting as scribe for signing physician. Objective - Vital Signs Vital signs: Vital Signs Temp 97.7 F 03/07/18 11:56 Pulse 80 03/07/18 12:23 Resp 17 03/07/18 11:56 BP 139/70 03/07/18 11:56 Pulse Ox 93 L 03/07/18 12:08 Intake & Output 03/06/18 03/07/18 03/07/18 18:59 06:59 18:59 Intake Total 1300.084 280 Output Total 3100 Balance -1799.916 280 Weight 112.4 kg Intake: IV 180 20 0.9 180 Invasive Line 1 20 Intake, IV Titration 600.084 Amount Furosemide 250 mg In 218.667 Sodium Chloride 0.9% 225 ml @ 10 MG/HR 10 mls/hr IVP .Q24H MARIA M Rx#: [id number] Heparin Sod,Pork in 0.45% 381.417 NaCl 25,000 unit In 0.45 % NaCl 1 250ml.bag @ 8.64 UNITS/KG/HR 9.99 mls/hr IV .Q24H MARIA M Rx#: [id number] Oral 520 260 Output: Urine 3100 - Labs CBC & Chem 7: 03/07/18 06:10 03/07/18 06:10 Labs: Abnormal Lab Results - Last 24 Hours (Table) 03/07/18 Range/Units 06:10 BUN 30 H (9-20) mg/dL Creatinine 1.48 H (0.66-1.25) mg/dL
--- NOTE | 2018-03-07 13:08 | P.PN ---
Subjective Progress Note Date: 03/07/18 Principal diagnosis: Non-ST segment elevated CA This is a very pleasant 82-year-old gentleman with a known history of atrial fibrillation, congestive heart failure, morbid obesity. hyperlipidemia, hypertension, prostate cancer. He presented here on 03/04/2018 with complaints of increasing shortness of breath. He was being worked up by cardiology and was planning to have a cardiac catheterization done in the outpatient setting. He was suspected of having acute exacerbation of congestive heart failure and is being treated for the same. He is seen again today in follow-up on the cardiac care floor. He is awake and alert in no acute distress. His chest x- ray shows evidence of cardiomegaly. No acute process. He is alternating between his CPAP device and 5 L/m per nasal cannula. He is afebrile. Hemodynamically stable. Creatinine 1.28. He is on oral Lasix 40 mg twice a day. On 03/07/2018 patient seen in follow-up on selective care unit, on sounds are clear on today's exam, patient is sitting up in a chair, no acute distress, lower extremity edema is improving, patient is diuresing, yesterday's chest x- ray showed clear lungs, pleural spaces were clear. 2-D echocardiogram showed EF between 55-60%, moderate pulmonary hypertension with a pressure of 51 mmHg, and mild tricuspid regurgitation. Clinically patient is stable, improving, and transition to oral Lasix per cardiology. Objective - Vital Signs Vital signs: Vital Signs Temp 97.7 F 03/07/18 11:56 Pulse 80 03/07/18 12:23 Resp 17 03/07/18 11:56 BP 139/70 03/07/18 11:56 Pulse Ox 93 L 03/07/18 12:08 Intake & Output 03/06/18 03/07/18 03/07/18 18:59 06:59 18:59 Intake Total 1300.084 280 Output Total 3100 Balance -1799.916 280 Weight 112.4 kg Intake: IV 180 20 0.9 180 Invasive Line 1 20 Intake, IV Titration 600.084 Amount Furosemide 250 mg In 218.667 Sodium Chloride 0.9% 225 ml @ 10 MG/HR 10 mls/hr IVP .Q24H MARIA M Rx#: [id number] Heparin Sod,Pork in 0.45% 381.417 NaCl 25,000 unit In 0.45 % NaCl 1 250ml.bag @ 8.64 UNITS/KG/HR 9.99 mls/hr IV .Q24H [facility] Rx#: [id number] Oral 520 260 Output: Urine 3100 - Exam GENERAL EXAM: Alert, active, comfortable in no apparent distress. On nasal cannula. HEAD: Normocephalic. EYES: Normal reaction of pupils, equal size. NOSE: Clear with pink turbinates. THROAT: No erythema or exudates. NECK: No masses, no JVD. CHEST: No chest wall deformity. LUNGS: Equal air entry, no crackles, no wheezes CVS: S1 and S2 normal with an audible murmur, irregular rhythm. ABDOMEN: No hepatosplenomegaly, normal bowel sounds, no guarding or rigidity. SPINE: No scoliosis or deformity SKIN: No rashes CENTRAL NERVOUS SYSTEM: No focal deficits, tone is normal in all 4 extremities. EXTREMITIES: There is trace peripheral edema. No clubbing, no cyanosis. Peripheral pulses are intact. - Labs CBC & Chem 7: 03/07/18 06:10 03/07/18 06:10 Labs: Abnormal Lab Results - Last 24 Hours (Table) 03/07/18 Range/Units 06:10 BUN 30 H (9-20) mg/dL Creatinine 1.48 H (0.66-1.25) mg/dL Assessment and Plan Plan: #1 Non-ST segment elevation myocardial infarction. #2 Acute on chronic hypoxic respiratory failure secondary to an acute exacerbation of diastolic congestive heart failure #3 Morbid obesity. #4 Obstructive sleep apnea utilizing CPAP. #5 Hypertension. #6 Acute on chronic kidney disease. Plan: Patient is diuresing, he is breathing easier, clear lung sounds on today's exam , chest x-ray did not show any acute pulmonary process, he is on room air, increase activity as tolerated, IV diuretics have been transitioned to oral, from pulmonary perspective patient is stable, go home once cleared by cardiology. I performed a history & physical examination of the patient and discussed their management with my nurse practitioner, Freda Castillo. I reviewed the nurse practitioner's note and agree with the documented findings and plan of care. Lung sounds are positive for clear lung sounds. The findings and the impression was discussed with the patient. I attest to the documentation by the nurse practitioner. Time with Patient: Less than 30
--- NOTE | 2018-03-08 06:10 | DS ---
DISCHARGE SUMMARY DATE OF ADMISSION: 03/04/2018 DATE OF DISCHARGE: 03/07/2018 FINAL DIAGNOSES: 1. Acute on chronic congestive heart failure exacerbation from diastolic dysfunction, ejection fraction 60% from underlying coronary artery disease. 2. Coronary artery disease prior history of stent. 3. Colonic diverticulosis. 4. Essential hypertension. 5. Hyperlipidemia. 6. Obstructive sleep apnea with CPAP. 7. 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 8. Persistent atrial fibrillation. 9. Obesity; body mass index 36.9. CONSULTATION: Dr. Augustine from Pulmonary; Dr. Lela Trujillo from Cardiology. HOSPITAL COURSE: This patient presented with shortness of breath when he was going through a stress test at Dr. Jerome's office. The patient had edema, abdominal distention, and elevated BNP. Patient was put on Lasix drip to which she diuresed well, feeling much better. The patient's baseline creatinine is around 1.48. Care was discussed in detail with the patient and . Questions were answered. The patient told to be a bit restricted about his fluid intake, which had been rather liberal at home. He will have a stress test with Dr. Jerome in the office. Discussion and discharge planning more than 35 minutes. PHYSICAL EXAMINATION: On examination, temperature 97.7, pulse 75, respiration 17, blood pressure 139/70, pulse ox 95% on room air. LUNGS: Fair entry. Decreased edema. PSYCH: AO x3. INVESTIGATIONS: BUN 30, creatinine 1.48. DISCHARGE MEDICATION: 1. Lipitor 80 mg p.o. daily. 2. Nitrostat 0.4 sublingual q.5 p.r.n. 3. Ambien 10 mg q.h.s. 4. Norvasc 10 mg p.o. daily. 5. [place] 10 one tablet q.6 p.r.n. 6. Zestril 2.5 mg p.o. daily. 7. Lutein 20 mg p.o. daily. 8. I-Joanna 1 capsule p.o. daily. 9. Aspirin 81 mg p.o. daily. 10.Lasix 40 mg b.i.d. 11.Imdur ER 30 mg p.o. daily. 12.Potassium 20 mEq p.o. daily. Follow up with Dr. Jerome in 1 week. Follow up with Dr. Cam Nichole in 3 days. BMP in 3 days. MMODL / IJN: [id number] /
--- NOTE | 2018-03-09 09:57 | CDI ---
Documentation Clarification Form Date: 03/09/2018 9:49:01 AM From: Milka Newberry Phone: If you have a question about this query, please contact Jennifer Genao, [employer] at [phone] between 8am and 5pm. Admit Date: 03/04/2018 4:08:00 PM Patient Name: Evert Perez Visit Number: [id number] Discharge Date: 03/07/2018 4:00:00 PM ATTENTION: The Clinical Documentation Specialists (CDI) and [facility] Coding Staff appreciate your assistance in clarifying documentation. Please respond to the clarification below the line at the bottom and electronically sign. The CDI & [facility] Coding staff will review the response and follow-up if needed. Please note: Queries are made part of the Legal Health Record. If you have any questions, please contact the author of this message via ITS. Dr. Wilber Bryant NSTEMI is documented in cardiology consult and through PN's and not carried through to DCS. Please clarify if patient had a NSTEMI or was this ruled out. Patient History/Risk Factors: HTN, CHF, pulmonary HTN Troponin: .060, .072, .071 ECHO: severely enlarged right ventricle EF 55-60% Treatment: IV heparin, aspirin, nitrates Consult: [employer] documents NSTEMI In order to capture the severity of condition and necessary documentation specificity, please clarify: NSTEMI NSTEMI ruled out Unable to determine Other Condition, please specify __NSTEMI ruled out MTDD
== END 2018-03-07 16:00 | disposition home or self-care (01) | DRG 291 ==
LOC: EC 11:55 → 3SCARD 16:08
PROVIDERS: ADMIT Hospitalist; ATTEND Hospitalist
DX: I13.0 Hypertensive heart and chronic kidney disease with heart failure and stage 1 through stage 4 chronic kidney disease, or unspecified chronic kidney disease (principal); I50.33 Acute on chronic diastolic (congestive) heart failure; J96.21 Acute and chronic respiratory failure with hypoxia; I48.1 Persistent atrial fibrillation; N17.9 Acute kidney failure, unspecified; E66.01 Morbid (severe) obesity due to excess calories; E78.5 Hyperlipidemia, unspecified; G47.33 Obstructive sleep apnea (adult) (pediatric); H35.30 Unspecified macular degeneration; I25.10 Atherosclerotic heart disease of native coronary artery without angina pectoris; I27.20 Pulmonary hypertension, unspecified; I48.2 Chronic atrial fibrillation; J44.9 Chronic obstructive pulmonary disease, unspecified; K57.30 Diverticulosis of large intestine without perforation or abscess without bleeding; M1A.9XX0 Chronic gout, unspecified, without tophus (tophi); N18.2 Chronic kidney disease, stage 2 (mild); Z68.36 Body mass index [BMI] 36.0-36.9, adult; Z79.82 Long term (current) use of aspirin; Z79.899 Other long term (current) drug therapy; Z82.3 Family history of stroke; Z82.49 Family history of ischemic heart disease and other diseases of the circulatory system; Z85.46 Personal history of malignant neoplasm of prostate; Z87.891 Personal history of nicotine dependence; Z95.5 Presence of coronary angioplasty implant and graft; Z96.611 Presence of right artificial shoulder joint; Z96.612 Presence of left artificial shoulder joint; Z89.022 Acquired absence of left finger(s); Z98.42 Cataract extraction status, left eye; Z98.41 Cataract extraction status, right eye; I07.1 Rheumatic tricuspid insufficiency; R79.1 Abnormal coagulation profile; Z91.041 Radiographic dye allergy status
CPT/HCPCS: 36415; 71046; 78580; 80048; 80053; 80061; 82550; 82553; 83735; 83880; 84132; 84484; 85025; 85049; 85379; 85610; 85730; 93005; 93306; 94640; 94760; 96361; 96365; 96366; 96375; 96376; 99291

== ENCOUNTER 2018-04-27 15:30 | Inpatient (IN) | payer MEDICARE, BC ==
--- NOTE | 2018-04-27 16:33 | ED ---
SOB HPI - General Chief Complaint: Shortness of Breath Stated Complaint: SOB Source: patient, family Mode of arrival: ambulatory Limitations: no limitations - History of Present Illness Initial Comments: This is an 82 yo male with h/o chronic afib not anticoagulated due to GI bleed, diastolic CHF, HTN who presents to ED for progressively worsening SOB and weight gain. The patient has noticed increased SOB over the last week. Worse with lying flat. Also complains of weight gain of 30lbs over the last few weeks. His LE and abd has been more swollen as well. He denies cough or fever. He has been compliant with his medications and he has recently had his metalozone increased to every other day from twice a week. He states that he has intermittent CP that he takes nitro for and this is unchanged from baseline. He is also on 5L NC at home which his states he has had to increase. He has known angina. He is followed by Dr. Jerome with cardiology. He saw his PCP today who thought that he needed to be admitted for IV diuretics. No other acute complaints. - Related Data Home Medications Medication Instructions Recorded Confirmed Atorvastatin Calcium 80 mg PO HS 12/15/13 04/27/18 Nitroglycerin Sl Tabs [Nitrostat] 0.4 mg PO Q5M PRN 12/15/13 04/27/18 amLODIPine [Norvasc] 10 mg PO DAILY 12/15/13 04/27/18 Hydrocodone/Acetaminophen [[place] 1 tab PO Q6HR PRN 10/18/16 04/27/18 10-325] Lisinopril [Zestril] 2.5 mg PO DAILY 03/04/18 04/27/18 Allopurinol [Zyloprim] 100 mg PO DAILY 04/27/18 04/27/18 Furosemide [Lasix] 40 mg PO DAILY 04/27/18 04/27/18 Loratadine [Claritin] 10 mg PO DAILY 04/27/18 04/27/18 Metolazone [Zaroxolyn] 2.5 mg PO MOWEFR 04/27/18 04/27/18 Vit C/E/Zn/Coppr/Lutein/Zeaxan 1 cap PO DAILY 04/27/18 04/27/18 [Preservision Areds 2 Softgel] Zolpidem [Ambien] 5 mg PO HS 04/27/18 04/27/18 Previous Rx's Medication Instructions Recorded Aspirin 81 mg PO DAILY chew 03/07/18 Isosorbide Mononitrate ER [Imdur] 30 mg PO DAILY #30 tab.er.24h 03/07/18 Potassium Chloride ER [K-Dur 20] 20 meq PO DAILY #30 tab.er.prt 03/07/18 Allergies Allergy/AdvReac Type Severity Reaction Status Date / Time Iodinated Contrast- Oral and AdvReac KIDNEY Verified 04/27/18 16:50 IV Dye FAILURE iodine AdvReac kidney Verified 04/27/18 16:50 shutdown Review of Systems ROS Statement: Those systems with pertinent positive or pertinent negative responses have been documented in the HPI. ROS Other: All systems not noted in ROS Statement are negative. Past Medical History Past Medical History: Atrial Fibrillation, Cancer, Heart Failure, Hyperlipidemia , Hypertension Additional Past Medical History / Comment(s): prostate ca 1.5 year ago. radiation (last tx 06/2015), anemia, sleep apnewa w/ use of cpap, acute pulmonary edema, macular degeneration, gout. History of Any Multi-Drug Resistant Organisms: MRSA Date of last positivie culture/infection: 2006(per family) MDRO Source:: face/neck Past Surgical History: Cholecystectomy, Heart Catheterization With Stent, Hernia Repair, Joint Replacement, Orthopedic Surgery Additional Past Surgical History / Comment(s): cardioversions; BL shoulders replaced; amputation of left index finger; BL cataract, BETTIE w/ cardioversion, cardiac ablation, thoracentesis. Past Anesthesia/Blood Transfusion Reactions: No Reported Reaction Additional Past Anesthesia/Blood Transfusion Reaction / Comment(s): clausterphobia... previous blood transfusion-no reaction to it. Date of Last Stent Placement:: 2010 Past Psychological History: No Psychological Hx Reported Smoking Status: Former smoker Past Alcohol Use History: Occasional Past Drug Use History: None Reported - Past Family History Father Family Medical History: Myocardial Infarction ([place]) Additional Family Medical History / Comment(s): at age 61-mi Mother Family Medical History: CVA/TIA Additional Family Medical History / Comment(s): at age 83 from stroke General Exam - General Exam Comments Initial Comments: Constitutional: Awake alert Appears comfortable Head: Normocephalic atraumatic Eyes: no conjunctival injection No scleral icterus EOMI Neck: No JVD Supple Heart: Regular rate rhythm normal S1-S2 no murmurs Lungs: Clear to auscultation bilaterally No wheezing No rales, decreased lung sounds at the lung bases, no respiratory distress Abdomen: Soft mildly distended nontender Extremities: Bilateral pitting edema up to the knees DP pulses intact Radial pulses intact Neuro: A&Ox3 No focal neurologic deficits Psych: Appropriate mood and affect Limitations: no limitations Course Vital Signs 04/27/18 15:39 Temperature 98.2 F Pulse Rate 87 Respiratory 18 Rate Blood Pressure 103/65 O2 Sat by Pulse 93 L Oximetry - Reevaluation(s) Reevaluation #1: 04/27/18 19:07 EKG showing normal sinus rhythm with a rate of 81. There is a first-degree AV block. There are no abnormal ST 7 changes or T-wave inversions. QTC is 439. Other intervals normal. No ectopy. Medical Decision Making - Medical Decision Making Is an 82-year-old male who presents emergency department for worsening shortness of breath, weight gain, and generalized weakness. The patient was found have multiple lesions on the liver that appeared to be neoplastic in origin with some biliary ductal dilation. His bilirubin was elevated. He is also found to have some ascites and a pleural effusion. His kidney function is much off of baseline and creatinine is 8.6. He has a mild hyperkalemia without EKG changes. He also has a anabolic acidosis associated with this. His heart rate and blood pressure have been stable throughout his ED stay. He is breathing comfortably on his home O2. At this time the patient needs to be admitted to the hospital for further evaluation. I have a page out to nephrology to get their recommendations as the patient may need to be dialyzed since he is fluid overloaded at this time. - Lab Data Result diagrams: 04/27/18 18:17 04/27/18 18:17 Lab Results 04/27/18 04/27/18 04/27/18 Range/Units 18:17 18:17 18:17 WBC 9.7 (3.8-10.6) k/uL RBC 5.14 (4.30-5.90) m/uL Hgb 11.1 L (13.0-17.5) gm/dL Hct 38.1 L (39.0-53.0) % MCV 74.1 L D (80.0-100.0) fL MCH 21.6 L (25.0-35.0) pg MCHC 29.1 L (31.0-37.0) g/dL RDW 19.1 H (11.5-15.5) % Plt Count 240 (150-450) k/uL Neutrophils % 81 % Lymphocytes % 11 % Monocytes % 5 % Eosinophils % 1 % Basophils % 1 % Neutrophils # 7.8 H (1.3-7.7) k/uL Lymphocytes # 1.0 (1.0-4.8) k/uL Monocytes # 0.5 (0-1.0) k/uL Eosinophils # 0.1 (0-0.7) k/uL Basophils # 0.1 (0-0.2) k/uL Hypochromasia Marked Poikilocytosis Moderate Anisocytosis Slight Microcytosis Moderate PT (9.0-12.0) sec INR (<1.2) APTT (22.0-30.0) sec Sodium 134 L (137-145) mmol/L Potassium 5.5 H (3.5-5.1) mmol/L Chloride 94 L (98-107) mmol/L Carbon Dioxide 18 L (22-30) mmol/L Anion Gap 22 mmol/L BUN 86 H (9-20) mg/dL Creatinine 8.60 H* (0.66-1.25) mg/dL Est GFR (CKD-EPI)AfAm 6 (>60 ml/min/1.73 sqM) Est GFR (CKD-EPI)NonAf 5 (>60 ml/min/1.73 sqM) Glucose 123 H (74-99) mg/dL Calcium 8.1 L (8.4-10.2) mg/dL Magnesium 2.3 (1.6-2.3) mg/dL Total Bilirubin 3.5 H (0.2-1.3) mg/dL AST 215 H (17-59) U/L ALT 40 (21-72) U/L Alkaline Phosphatase 383 H (38-126) U/L CK-MB (CK-2) 10.3 H (0.0-2.4) ng/mL Troponin I 0.917 H* (0.000-0.034) ng/mL NT-Pro-B Natriuret Pep pg/mL Total Protein 7.1 (6.3-8.2) g/dL Albumin 3.3 L (3.5-5.0) g/dL 04/27/18 04/27/18 Range/Units 18:17 18:25 WBC (3.8-10.6) k/uL RBC (4.30-5.90) m/uL Hgb (13.0-17.5) gm/dL Hct (39.0-53.0) % MCV (80.0-100.0) fL MCH (25.0-35.0) pg MCHC (31.0-37.0) g/dL RDW (11.5-15.5) % Plt Count (150-450) k/uL Neutrophils % % Lymphocytes % % Monocytes % % Eosinophils % % Basophils % % Neutrophils # (1.3-7.7) k/uL Lymphocytes # (1.0-4.8) k/uL Monocytes # (0-1.0) k/uL Eosinophils # (0-0.7) k/uL Basophils # (0-0.2) k/uL Hypochromasia Poikilocytosis Anisocytosis Microcytosis PT 12.1 H (9.0-12.0) sec INR 1.2 H (<1.2) APTT 23.3 (22.0-30.0) sec Sodium (137-145) mmol/L Potassium (3.5-5.1) mmol/L Chloride (98-107) mmol/L Carbon Dioxide (22-30) mmol/L Anion Gap mmol/L BUN (9-20) mg/dL Creatinine (0.66-1.25) mg/dL Est GFR (CKD-EPI)AfAm (>60 ml/min/1.73 sqM) Est GFR (CKD-EPI)NonAf (>60 ml/min/1.73 sqM) Glucose (74-99) mg/dL Calcium (8.4-10.2) mg/dL Magnesium (1.6-2.3) mg/dL Total Bilirubin (0.2-1.3) mg/dL AST (17-59) U/L ALT (21-72) U/L Alkaline Phosphatase (38-126) U/L CK-MB (CK-2) (0.0-2.4) ng/mL Troponin I (0.000-0.034) ng/mL NT-Pro-B Natriuret Pep 94423 pg/mL Total Protein (6.3-8.2) g/dL Albumin (3.5-5.0) g/dL Disposition Clinical Impression: Acute on chronic kidney failure, High anion gap metabolic acidosis, Liver neoplasm, Hyperbilirubinemia Disposition: ADMITTED IP TO THIS HOSP Condition: Serious Referrals: Cam Nichole MD [Primary Care Provider] - 1-2 days
--- NOTE | 2018-04-27 18:33 | CT ---
EXAMINATION TYPE: CT abdomen pelvis wo con DATE OF EXAM: 04/27/2018 COMPARISON: PET/CT 04/04/2017; CT 02/06/2017 HISTORY: Generalized pain and bloating CT DLP: 1332.4 mGycm Automated exposure control for dose reduction was used. TECHNIQUE: Helical acquisition of images was performed from the lung bases through the pelvis. FINDINGS: VISUALIZED SUPRADIAPHRAGMATIC STRUCTURES: Moderate right pleural effusion noted, dependently. Mild/mo derate cardiomegaly; no pericardial effusion. Coronary calcifications noted. LIVER: The left hepatic lobe and medial segment of the right hepatic lobe, both above and below the p nikhil hepatis level, are replaced with innumerable neoplastic ill-defined lesions which in large and d istort the liver capsule. These lesions are all new since the prior examinations. BILIARY TREE: There is significant right upper extremity beam hardening artifact which obscures visua lization of the biliary tree. There does appear to be dilation of the intrahepatic biliary tree. PANCREAS: No significant abnormality is seen. SPLEEN: No significant abnormality is seen. ADRENALS: No significant abnormality is seen. KIDNEYS AND URETERS AND BLADDER: There is no obstructive uropathy. No focal findings in the kidneys o r ureters or bladder. PERITONEAL CAVITY: No pneumoperitoneum, but large volume of dependent peritoneal fluid is seen throug hout the abdomen and the pelvis. OMENTUM: Gadolinium throughout the omentum are reticular nodular ill-defined opacities suspicious for omental carcinomatosis. ABDOMINAL ADENOPATHY: None visualized REPRODUCTIVE ORGANS: No significant abnormality is seen PELVIC ADENOPATHY: None visualized. OSSEOUS STRUCTURES: There are multifocal osteopenic lesions, including the left intertrochanteric an d proximal femur position, and impending fracture site. BOWEL: There is no bowel obstruction. No pneumatosis. The stomach and duodenum and small bowel and la rge bowel are unremarkable. IMPRESSION: NEAR COMPLETE REPLACEMENT OF THE LIVER WITH NEOPLASTIC CHANGE AND WITH EVIDENCE OF BILIARY OBSTRUCTIO N. LARGE VOLUME OF PERITONEAL FLUID WITH MODERATE RIGHT PLEURAL EFFUSION. MULTIFOCAL SKELETAL LESIONS.
[2018-04-27 18:38] LABS: Anisocytosis Slight; Basophils # (A) 0.1 k/uL (0-0.2); Basophils % (A) 1 %; Eosinophils # (A) 0.1 k/uL (0-0.7); Eosinophils % (A) 1 %; HCT 38.1 % (39.0-53.0); HGB 11.1 gm/dL (13.0-17.5); Hypochromasia Marked; Lymphocytes % (A) 11 %; MCH 21.6 pg (25.0-35.0); MCHC 29.1 g/dL (31.0-37.0); Mean Platelet Volume 7.6; Microcytosis Moderate; Monocytes # (A) 0.5 k/uL (0-1.0); Monocytes % (A) 5 %; Neutrophils # (A) 7.8 k/uL (1.3-7.7); Neutrophils % (A) 81 %; Platelet Count 240 k/uL (150-450); Poikilocytosis Moderate; RBC 5.14 m/uL (4.30-5.90); RDW 19.1 % (11.5-15.5); WBC 9.7 k/uL (3.8-10.6)
[2018-04-27 18:40] LABS: MCV 74.1 fL (80.0-100.0)
[2018-04-27 18:44] LABS: Albumin 3.3 g/dL (3.5-5.0); Calcium 8.1 mg/dL (8.4-10.2); Magnesium 2.3 mg/dL (1.6-2.3); Potassium 5.5 mmol/L (3.5-5.1); Total Bilirubin 3.5 mg/dL (0.2-1.3); Total Protein 7.1 g/dL (6.3-8.2)
[2018-04-27 18:46] LABS: INR 1.2 (<1.2); Partial Thromboplastin Time 23.3 sec (22.0-30.0); Prothrombin Time 12.1 sec (9.0-12.0)
[2018-04-27 18:56] LABS: Creatine Kinase MB 10.3 ng/mL (0.0-2.4)
--- NOTE | 2018-04-27 18:56 | XR ---
EXAMINATION: XR chest 2V DATE AND TIME: 04/27/2018 5:37 PM CLINICAL INDICATION: PHH; SOB TECHNIQUE: Departmental protocol COMPARISON: 03/06/2018 FINDINGS: The lungs are clear. The pleural spaces are negative. The cardiac silhouette is prominently enlarged. The remainder of the mediastinal silhouette is unrema rkable. The skeletal structures and soft tissues are negative for acute findings. IMPRESSION: NO ACUTE PARENCHYMAL PLEURAL PROCESS.
[2018-04-27 19:04] LABS: Troponin I 0.917 ng/mL (0.000-0.034)
[2018-04-27] MEDS ORDERED: NALOXONE 0.4 MG/ML 1 ML VIAL IV PRN (19:21)
[2018-04-27] MEDS ORDERED: HYDROcodone/APAP 5-325MG 1 EACH TAB PO STA (19:56)
[2018-04-27 21:04] VITALS: BMI 83.7
[2018-04-27] MEDS: ZOLPIDEM 5 MG TAB PO SCH (22:26)
--- NOTE | 2018-04-28 00:13 | HP ---
HISTORY AND PHYSICAL DATE OF ADMISSION: April 27, 2018. DATE OF SERVICE: April 27, 2018. PRESENTING COMPLAINT: Weak and tired. HISTORY OF PRESENTING COMPLAINT: This is an 82-year-old patient with multiple medical problems. The patient was here 2 months, middle of February and patient's underlying chronic stable conditions include congestive heart failure from diastolic dysfunction, EF 60%, coronary artery disease stent, diverticulosis, hypertension, hyperlipidemia, obstructive sleep apnea, persistent atrial fibrillation, and sleep apnea uses CPAP. The patient's creatinine back in February was 1.48. The patient is here with his and daughter. The patient has been having increasing chest tightness for the last 2 days, increasing short of breath. No cough. Has been not well for at least last 2 weeks. Abdomen has become more distended, decreased appetite, congested, increasing swelling of lower extremities, rather weak and tired. Ayala catheter was placed in the ER, which had some concentrated appearing urine. Electrolytes have been totally off and patient's creatinine is bumped up to over 8. REVIEW OF SYSTEMS: CONSTITUTIONAL: Tired, weak, decreased appetite. HEENT: Decreased hearing. RESPIRATORY: Short of breath. CARDIOVASCULAR as above. GASTROINTESTINAL/GENITOURINARY has got a Ayala catheter. MUSCULOSKELETAL: Pain in joints. DERMATOLOGICAL, HEMATOLOGIC, LYMPHATIC: None. PSYCHIATRY: Very tired. NEUROLOGICAL: Nil focal. PAST MEDICAL HISTORY: Coronary artery disease with stent 4 years ago, radiation proctitis, diverticulosis, hypertension, hyperlipidemia, prostate cancer, obstructive sleep apnea, uses CPAP machine, chronic kidney disease, baseline creatinine was around 1.48, atrial fibrillation, congestive heart failure, EF 60%, gout, macular degeneration. PAST SURGICAL HISTORY: Cholecystectomy, cardiac cath with stent, hernia repair, joint replacement, cardioversion, bilateral shoulder replaced. Amputation of left index finger. Bilateral cataract surgery, cardioversion, cardiac ablation. SOCIAL HISTORY: The patient normally used to have 1-2 glasses of wine per day. 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 HOME MEDICATIONS: 1. Norvasc 10 mg a day. 2. Ambien 5 mg q.h.s. 3. PreserVision 1 capsule p.o. daily. 4. Potassium 20 mEq a day. 5. Nitrostat 0.4 q.5h p.r.n. 6. Zaroxolyn 2.5 Thursday, Thursday and Thursday. 7. Claritin 10 mg a day. 8. Zestril 2.5 p.o. daily. 9. Imdur ER 30 mg a day. 10.Catawba 10 1 tablet q.6h p.r.n. 11.Lasix 40 mg p.o. daily. 12.Lipitor 80 mg q.h.s. 13.Aspirin 81 mg p.o. daily. 14.Allopurinol 100 mg p.o. daily. ALLERGIES: IV CONTRAST AND IODINE. PHYSICAL EXAMINATION: VITAL SIGNS: Temperature 97.8, pulse 77, respiration 14, blood pressure 124/59, pulse 100 percent on 5 L. GENERAL APPEARANCE: Well built, BMI 83.7. Lying in bed, tired, lethargic. EYES: Pupils equal. Conjunctivae pale. HEENT: External appearance of nose and ears normal. Oral cavity a bit dry. NECK: JVD unable to assess. Mass not palpable. RESPIRATORY: Effort increased. LUNGS: Diminished breath sounds. CARDIOVASCULAR: First and second sounds normal. Gross edema present. ABDOMEN: Distended. Edema of the abdominal wall. Dullness to percussion in the limbs. Liver and spleen not palpable. LYMPHATIC: No lymph nodes palpable in the neck and axilla. PSYCHIATRY: The patient is able answer simple questions, though lethargic. NEUROLOGICAL: Pupils equal. No facial asymmetry. Moving all 4 limbs. INVESTIGATIONS: White count 9.7, hemoglobin 11.1, platelets 240, potassium 5.5, BUN 86, creatinine 8.6. Troponin 0.917. EKG tracing personally reviewed by me shows low voltage EKG. Chest x- ray film personally reviewed by me shows some pulmonary edema and fluid in the horizontal and oblique fissure and there is cardiomegaly. ASSESSMENT: 1. Acute renal failure probably combination of prerenal and acute tubular necrosis from decreased oral intake and patient on several diuretics and ALDO inhibitor. 2. Fluid overload from third-spacing. 3. Morbid obesity BMI 83.7. 4. Acute metabolic encephalopathy from uremic symptoms. 5. Acute on chronic congestive heart failure exacerbation from diastolic dysfunction. Ejection fraction 60%. 6. History of atrial fibrillation. 7. Coronary artery disease prior history of stent. 8. Colonic diverticulosis. 9. Essential hypertension. 10.Hyperlipidemia. 11.Obstructive sleep apnea uses CPAP machine. 12.Obesity; body mass index of more than 40. PLAN: Most of patient's home medications and antihypertensives will be held, including all the diuretics. We will also hold off the Allopurinol in view of severe renal failure. The patient will need to get dialyzed as patient also got uremic symptoms including lethargy, weakness, tiredness, fluid overload. Prognosis is guarded. Consultation was made to Nephrology and Cardiology. The patient did have a CT scan of the abdomen and pelvis and also the CT scan is showing interval lesions in the liver. May also be noticed that the patient has near complete replacement in the liver with neoplastic changes, evidence of biliary obstruction, and also there is multifocal skeletal lesions and large volume of peritoneal fluid with moderate right pleural effusion is present. Patient's overall prognosis is guarded. Copy to Dr. Cam Nichole. MMKERI / TONY: [id number] /
[2018-04-28 00:28] LABS: Creatine Kinase MB 11.8 ng/mL (0.0-2.4)
[2018-04-28 00:31] LABS: Troponin I 1.35 ng/mL (0.000-0.034)
[2018-04-28 04:29] LABS: Anisocytosis Slight; Basophils # (A) 0.1 k/uL (0-0.2); Basophils % (A) 1 %; Eosinophils # (A) 0.2 k/uL (0-0.7); Eosinophils % (A) 1 %; HCT 35.5 % (39.0-53.0); HGB 10.3 gm/dL (13.0-17.5); Hypochromasia Marked; Lymphocytes # (A) 1.1 k/uL (1.0-4.8); Lymphocytes % (A) 9 %; MCH 20.8 pg (25.0-35.0); MCV 71.7 fL (80.0-100.0); Microcytosis Marked; Monocytes # (A) 0.6 k/uL (0-1.0); Monocytes % (A) 5 %; Neutrophils # (A) 10.5 k/uL (1.3-7.7); Neutrophils % (A) 82 %; Platelet Count 242 k/uL (150-450); Poikilocytosis Moderate; RBC 4.96 m/uL (4.30-5.90); RDW 19.4 % (11.5-15.5); WBC 12.7 k/uL (3.8-10.6)
[2018-04-28 04:38] LABS: Albumin 3.1 g/dL (3.5-5.0); Potassium 5.9 mmol/L (3.5-5.1); Total Bilirubin 3.7 mg/dL (0.2-1.3); Total Protein 6.8 g/dL (6.3-8.2)
[2018-04-28 05:01] LABS: Creatine Kinase MB 12.1 ng/mL (0.0-2.4)
[2018-04-28 05:06] LABS: Troponin I 1.34 ng/mL (0.000-0.034)
[2018-04-28] MEDS ORDERED: DEXTROSE 50%-WATER 50 ML SYRINGE IVP STA (10:24)
[2018-04-28] MEDS ORDERED: INSULIN REGULAR 100 UNIT/ML VIAL IV ONE (10:25)
[2018-04-28 10:41] LABS: Glucose,Whole Blood 110 mg/dL (75-99)
[2018-04-28] MEDS: ISOSORBIDE MONONITRATE ER 30 MG TAB.ER.24H PO SCH (11:07)
--- NOTE | 2018-04-28 13:42 | P.CONS ---
History of Present Illness - Reason for Consult Consult date: 04/28/18 Liver lesions Requesting physician: Wilber Bryant - Chief Complaint Weakness fatigue - History of Present Illness 82-year-old gentleman with a past medical history of CHF, EtOH abuse, radiation proctitis/prostate carcinoma, CAD, hyperlipidemia, hypertension, A. fib, sleep apnea, colonic diverticulosis admitted with elevated BUN/creatinine weakness fatigue as well as chest tightness for last few days. History obtained from family at bedside. Patient has been more fatigued and tired lately. Patient still drinks alcohol on a daily basis. No history of hepatitis. CT abdomen and pelvis reported near complete replacement of the liver with neoplastic changes and biliary obstruction. Large volume of peritoneal fluid with moderate right pleural effusion with multifocal skeletal lesions. Chest x-ray no acute pleural process. Hemoglobin 10.3-11.1. MCV 71-74. White count 9.7-12.7. Platelet 240. INR 1.2. Troponin 0.9-1.3. BUN 90 creatinine 8.8. Total bilirubin 3.5-3.7. AST 215-223. ALT 34-40. AP 383-385. When reviewing prior medical records patient had elevated liver enzymes in February 2018 total bilirubin at that time was 2.0. Review of Systems Obtained from family Constitutional: Denies fever, chills, sweats, weight gain, or loss. Weakness fatigue. HEENT: Negative for migraines, blurred vision or loss, earaches, drainage, tinnitus, oral mucosal lesions, dysphagia, or odynophagia. Cardiac: Negative for chest pain, arrhythmias, or palpitation. Respiratory: Negative for shortness of breath, hemoptysis, cough, or sputum production. Gastrointestinal: See HPI for pertinent findings. Genitourinary: Negative for hematuria, urgency, frequency, polyuria, dysuria, or penile discharge. Musculoskeletal: Negative for muscle aches, swelling, arthritis, and arthralgias. Neurologic: Negative for stroke or TIA. Endocrine: Negative for thyroid problems. Skin: Negative for rash or itching. Psychiatric: Negative history for depression and anxiety ROS unobtainable: due to mental status Past Medical History Past Medical History: Atrial Fibrillation, Cancer, Heart Failure, Hyperlipidemia, Hypertension Additional Past Medical History / Comment(s): prostate ca 1.5 year ago. radiation (last tx 06/2015), anemia, sleep apnewa w/ use of cpap, acute pulmonary edema, macular degeneration, gout. 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 Past Anesthesia/Blood Transfusion Reactions: No Reported Reaction Additional Past Anesthesia/Blood Transfusion Reaction / Comm: clausterphobia... previous blood transfusion-no reaction to it. Date of Last Stent Placement:: 2010 Past Psychological History: No Psychological Hx Reported Smoking Status: Former smoker Past Alcohol Use History: Occasional Additional Past Alcohol Use History / Comment(s): started smoking at age 18 (1954) and quit at age 26(1962) smoked 1 ppd. drinks 10 ounces of wine per day Past Drug Use History: None Reported - Past Family History Father Family Medical History: Myocardial Infarction ([place]) Additional Family Medical History / Comment(s): at age 61-mi Mother Family Medical History: CVA/TIA Additional Family Medical History / Comment(s): at age 83 from stroke Medications and Allergies Home Medications Medication Instructions Recorded Confirmed Type Atorvastatin Calcium 80 mg PO HS 12/15/13 04/27/18 History Nitroglycerin Sl Tabs [Nitrostat] 0.4 mg PO Q5M PRN 12/15/13 04/27/18 History amLODIPine [Norvasc] 10 mg PO DAILY 12/15/13 04/27/18 History Hydrocodone/Acetaminophen [Redkey 1 tab PO Q6HR PRN 10/18/16 04/27/18 History 10-325] Lisinopril [Zestril] 2.5 mg PO DAILY 03/04/18 04/27/18 History Aspirin 81 mg PO DAILY chew 03/07/18 04/27/18 Rx Isosorbide Mononitrate ER [Imdur] 30 mg PO DAILY #30 tab.er.24h 03/07/18 04/27/18 Rx Potassium Chloride ER [K-Dur 20] 20 meq PO DAILY #30 tab.er.prt 03/07/18 04/27/18 Rx Allopurinol [Zyloprim] 100 mg PO DAILY 04/27/18 04/27/18 History Furosemide [Lasix] 40 mg PO DAILY 04/27/18 04/27/18 History Loratadine [Claritin] 10 mg PO DAILY 04/27/18 04/27/18 History Metolazone [Zaroxolyn] 2.5 mg PO MOWEFR 04/27/18 04/27/18 History Vit C/E/Zn/Coppr/Lutein/Zeaxan 1 cap PO DAILY 04/27/18 04/27/18 History [Preservision Areds 2 Softgel] Zolpidem [Ambien] 5 mg PO HS 04/27/18 04/27/18 History Allergies Allergy/AdvReac Type Severity Reaction Status Date / Time Iodinated Contrast- Oral and AdvReac KIDNEY Verified 04/27/18 16:50 IV Dye FAILURE iodine AdvReac kidney Verified 04/27/18 16:50 shutdown Physical Exam Vitals: Vital Signs Temp Pulse Pulse Resp BP BP Pulse Ox 04/28/18 08:35 98.5 F 66 16 92/50 96 04/28/18 04:00 98.3 F 77 22 99/55 95 04/28/18 00:00 98.2 F 85 18 159/70 97 04/27/18 20:00 98.2 F 85 85 22 112/63 111/77 100 04/27/18 19:27 97.8 F 77 14 124/59 100 04/27/18 17:43 20 04/27/18 15:39 98.2 F 87 18 103/65 93 L Intake and Output 04/27/18 04/28/18 04/28/18 22:59 06:59 14:59 Intake Total 222 Output Total 45 85 Balance -45 -85 222 Intake: Oral 222 Output: Urine 45 85 Other: Weight 257 kg 116.9 kg General appearance: The patient is confused and somnolent. HET: Head is normocephalic and atraumatic. Pupils are equal and reactive. Oropharynx is clear without lesions. Neck: Supple without lymphadenopathy. Trachea midline. Heart: S1 S2. Lungs: No crackles or wheezes are heard. Abdomen: Distended with tense ascites hypoactive sounds. No peritoneal signs. No palpable organomegaly or masses. Extremities: +2 bilateral lower extremity edema. Radial and pedal pulses are 2/4 bilaterally. Ayala with gross hematuria. Neurological: No focal deficits. Strength and sensation are grossly intact. Results CBC & Chem 7: 04/28/18 04:16 04/29/18 06:10 Labs: Abnormal Lab Results - Last 24 Hours (Table) 04/27/18 04/27/18 04/27/18 Range/Units 18:17 18:17 18:17 WBC (3.8-10.6) k/uL Hgb 11.1 L (13.0-17.5) gm/dL Hct 38.1 L (39.0-53.0) % MCV 74.1 L D (80.0-100.0) fL MCH 21.6 L (25.0-35.0) pg MCHC 29.1 L (31.0-37.0) g/dL RDW 19.1 H (11.5-15.5) % Neutrophils # 7.8 H (1.3-7.7) k/uL PT (9.0-12.0) sec INR (<1.2) Sodium 134 L (137-145) mmol/L Potassium 5.5 H (3.5-5.1) mmol/L Chloride 94 L (98-107) mmol/L Carbon Dioxide 18 L (22-30) mmol/L BUN 86 H (9-20) mg/dL Creatinine 8.60 H* (0.66-1.25) mg/dL Glucose 123 H (74-99) mg/dL POC Glucose (mg/dL) (75-99) mg/dL Calcium 8.1 L (8.4-10.2) mg/dL Total Bilirubin 3.5 H (0.2-1.3) mg/dL AST 215 H (17-59) U/L Alkaline Phosphatase 383 H (38-126) U/L CK-MB (CK-2) 10.3 H (0.0-2.4) ng/mL Troponin I 0.917 H* (0.000-0.034) ng/mL Albumin 3.3 L (3.5-5.0) g/dL 04/27/18 04/27/18 04/28/18 Range/Units 18:25 23:28 04:16 WBC (3.8-10.6) k/uL Hgb (13.0-17.5) gm/dL Hct (39.0-53.0) % MCV (80.0-100.0) fL MCH (25.0-35.0) pg MCHC (31.0-37.0) g/dL RDW (11.5-15.5) % Neutrophils # (1.3-7.7) k/uL PT 12.1 H (9.0-12.0) sec INR 1.2 H (<1.2) Sodium 133 L (137-145) mmol/L Potassium 5.9 H (3.5-5.1) mmol/L Chloride 93 L (98-107) mmol/L Carbon Dioxide (22-30) mmol/L BUN 90 H (9-20) mg/dL Creatinine 8.88 H* (0.66-1.25) mg/dL Glucose 109 H (74-99) mg/dL POC Glucose (mg/dL) (75-99) mg/dL Calcium 8.0 L (8.4-10.2) mg/dL Total Bilirubin 3.7 H (0.2-1.3) mg/dL AST 223 H (17-59) U/L Alkaline Phosphatase 385 H (38-126) U/L CK-MB (CK-2) 11.8 H (0.0-2.4) ng/mL Troponin I 1.350 H* (0.000-0.034) ng/mL Albumin 3.1 L (3.5-5.0) g/dL 04/28/18 04/28/18 04/28/18 Range/Units 04:16 04:16 10:13 WBC 12.7 H (3.8-10.6) k/uL Hgb 10.3 L (13.0-17.5) gm/dL Hct 35.5 L (39.0-53.0) % MCV 71.7 L (80.0-100.0) fL MCH 20.8 L (25.0-35.0) pg MCHC 29.0 L (31.0-37.0) g/dL RDW 19.4 H (11.5-15.5) % Neutrophils # 10.5 H (1.3-7.7) k/uL PT (9.0-12.0) sec INR (<1.2) Sodium (137-145) mmol/L Potassium (3.5-5.1) mmol/L Chloride (98-107) mmol/L Carbon Dioxide (22-30) mmol/L BUN (9-20) mg/dL Creatinine (0.66-1.25) mg/dL Glucose (74-99) mg/dL POC Glucose (mg/dL) 110 H (75-99) mg/dL Calcium (8.4-10.2) mg/dL Total Bilirubin (0.2-1.3) mg/dL AST (17-59) U/L Alkaline Phosphatase (38-126) U/L CK-MB (CK-2) 12.1 H (0.0-2.4) ng/mL Troponin I 1.340 H* (0.000-0.034) ng/mL Albumin (3.5-5.0) g/dL CT scan - abdomen: report reviewed (Dr. Medina) Assessment and Plan (1) Elevated liver enzymes Narrative/Plan: 82-year-old male admitted with progressive weakness fatigue chest tightness el evated troponin as well as elevated liver enzymes most likely cholestatic mild jaundice CT imaging reported near complete replacement of liver with neoplastic changes evidence of biliary obstruction and multifocal skeletal lesions with large volume of peritoneal fluid ascites suspicious for malignant process. Current Visit: Yes Status: Acute Code(s): R74.8 - ABNORMAL LEVELS OF OTHER SERUM ENZYMES SNOMED Code(s): 982944881 (2) Acute kidney injury Current Visit: Yes Status: Acute Code(s): N17.9 - ACUTE KIDNEY FAILURE, UNSPECIFIED SNOMED Code(s): 35403384 (3) Liver lesion Current Visit: Yes Status: Chronic Priority: High Code(s): K76.9 - LIVER DISEASE, UNSPECIFIED SNOMED Code(s): 157906212 (4) Ascites Current Visit: Yes Status: Acute Code(s): R18.8 - OTHER ASCITES SNOMED Code(s): 992341831 (5) ETOH abuse Current Visit: Yes Status: Acute Code(s): F10.10 - ALCOHOL ABUSE, UNCOMPLICATED SNOMED Code(s): 26267463 (6) Metabolic encephalopathy Narrative/Plan: Possible hepatic encephalopathy Current Visit: Yes Status: Acute Code(s): G93.41 - METABOLIC ENCEPHALOPATHY SNOMED Code(s): 01903778 Plan: 1. Oncology consult. AFP CEA marker. Liver biopsy diagnostic paracentesis ordered however patient received baby aspirin 2 days ago therefore liver biopsy will not be performed interventional radiology recommends holding aspirin products for 7 days prior to liver biopsy. Still can proceed with diagnostic therapeutic paracentesis cytology requested. ERCP not planned at this time elev ation of liver enzymes are felt to be more cholestatic in process. Daily CBC CMP PT/INR monitoring. 2. Check ammonia level. Thank you for this kind referral and the opportunity to participate in the care of your patient. This consultation was discussed with Dr. Medina. The impression and plan of care have been directed as dictated.
--- NOTE | 2018-04-28 16:20 | P.GSCN ---
History of Present Illness Consult date: 04/28/18 History of present illness: The patient is an 82-year-old gentleman known to me for prostate cancer. He has come in the hospital with renal failure. A catheters placed in the emergency room without much urine. His creatinine is 8. Apparently he developed some blood in the urine over after overnight. I was asked see the patient. The patient was diagnosed with prostate cancer in 2014. He had a Ernestina 6 and 7 cancer with PSA at that point time a 6.1. He had radiation therapy with LHRH therapy. His PSA went down to minimal. His 0.04. He has been following with Dr. Nichole since 2017. Apparently his PSA has slowly started to rise and was 1.4 this past year. On computed tomography scan he has a liver full of tumor as well as multiple skeletal lesions. It is indeterminate whether these are prosthetic in origin at this point in time. Patient is very uncomfortable obviously uremic with elevated creatinine. History is taken from the family. Review of Systems ROS unobtainable: due to mental status Past Medical History Past Medical History: Atrial Fibrillation, Cancer, Heart Failure, Hyperlipidemia , Hypertension Additional Past Medical History / Comment(s): prostate ca 1.5 year ago. radiation (last tx 06/2015), anemia, sleep apnewa w/ use of cpap, acute pulmonary edema, macular degeneration, gout. 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 Past Anesthesia/Blood Transfusion Reactions: No Reported Reaction Additional Past Anesthesia/Blood Transfusion Reaction / Comm: clausterphobia... previous blood transfusion-no reaction to it. Date of Last Stent Placement:: 2010 Past Psychological History: No Psychological Hx Reported Smoking Status: Former smoker Past Alcohol Use History: Occasional Additional Past Alcohol Use History / Comment(s): started smoking at age 18 ( 1953) and quit at age 26(1961) smoked 1 ppd. drinks 10 ounces of wine per day Past Drug Use History: None Reported - Past Family History Father Family Medical History: Myocardial Infarction ([place]) Additional Family Medical History / Comment(s): at age 61-mi Mother Family Medical History: CVA/TIA Additional Family Medical History / Comment(s): at age 83 from stroke Medications and Allergies Home Medications Medication Instructions Recorded Confirmed Type Atorvastatin Calcium 80 mg PO HS 12/15/13 04/27/18 History Nitroglycerin Sl Tabs [Nitrostat] 0.4 mg PO Q5M PRN 12/15/13 04/27/18 History amLODIPine [Norvasc] 10 mg PO DAILY 12/15/13 04/27/18 History Hydrocodone/Acetaminophen [[place] 1 tab PO Q6HR PRN 10/18/16 04/27/18 History 10-325] Lisinopril [Zestril] 2.5 mg PO DAILY 03/04/18 04/27/18 History Aspirin 81 mg PO DAILY chew 03/07/18 04/27/18 Rx Isosorbide Mononitrate ER [Imdur] 30 mg PO DAILY #30 tab.er.24h 03/07/18 Rx Potassium Chloride ER [K-Dur 20] 20 meq PO DAILY #30 tab.er.prt 03/07/18 Rx Allopurinol [Zyloprim] 100 mg PO DAILY 04/27/18 04/27/18 History Furosemide [Lasix] 40 mg PO DAILY 04/27/18 04/27/18 History Loratadine [Claritin] 10 mg PO DAILY 04/27/18 04/27/18 History Metolazone [Zaroxolyn] 2.5 mg PO MOWEFR 04/27/18 04/27/18 History Vit C/E/Zn/Coppr/Lutein/Zeaxan 1 cap PO DAILY 04/27/18 04/27/18 History [Preservision Areds 2 Softgel] Zolpidem [Ambien] 5 mg PO HS 04/27/18 04/27/18 History Allergies Allergy/AdvReac Type Severity Reaction Status Date / Time Iodinated Contrast- Oral and AdvReac KIDNEY Verified 04/27/18 16:50 IV Dye FAILURE iodine AdvReac kidney Verified 04/27/18 16:50 shutdown Surgical - Exam Vital Signs Temp Pulse Resp BP Pulse Ox 98.2 F 87 18 103/65 93 L 04/27/18 15:39 04/27/18 15:39 04/27/18 15:39 04/27/18 15:39 04/27/18 15:39 - General well developed, moderate distress, chronically ill - Respiratory The patient's respirations are labored - Abdomen Abdomen: distended - Neurologic combative Results - Labs 04/28/18 04:16 04/28/18 15:10 Abnormal Lab Results - Last 24 Hours (Table) 04/27/18 04/27/18 04/27/18 Range/Units 18:17 18:17 18:17 WBC (3.8-10.6) k/uL Hgb 11.1 L (13.0-17.5) gm/dL Hct 38.1 L (39.0-53.0) % MCV 74.1 L D (80.0-100.0) fL MCH 21.6 L (25.0-35.0) pg MCHC 29.1 L (31.0-37.0) g/dL RDW 19.1 H (11.5-15.5) % Neutrophils # 7.8 H (1.3-7.7) k/uL PT (9.0-12.0) sec INR (<1.2) Sodium 134 L (137-145) mmol/L Potassium 5.5 H (3.5-5.1) mmol/L Chloride 94 L (98-107) mmol/L Carbon Dioxide 18 L (22-30) mmol/L BUN 86 H (9-20) mg/dL Creatinine 8.60 H* (0.66-1.25) mg/dL Glucose 123 H (74-99) mg/dL POC Glucose (mg/dL) (75-99) mg/dL Calcium 8.1 L (8.4-10.2) mg/dL Total Bilirubin 3.5 H (0.2-1.3) mg/dL AST 215 H (17-59) U/L Alkaline Phosphatase 383 H (38-126) U/L Ammonia (<30) umol/L CK-MB (CK-2) 10.3 H (0.0-2.4) ng/mL Troponin I 0.917 H* (0.000-0.034) ng/mL Albumin 3.3 L (3.5-5.0) g/dL 04/27/18 04/27/18 04/28/18 Range/Units 18:25 23:28 04:16 WBC (3.8-10.6) k/uL Hgb (13.0-17.5) gm/dL Hct (39.0-53.0) % MCV (80.0-100.0) fL MCH (25.0-35.0) pg MCHC (31.0-37.0) g/dL RDW (11.5-15.5) % Neutrophils # (1.3-7.7) k/uL PT 12.1 H (9.0-12.0) sec INR 1.2 H (<1.2) Sodium 133 L (137-145) mmol/L Potassium 5.9 H (3.5-5.1) mmol/L Chloride 93 L (98-107) mmol/L Carbon Dioxide (22-30) mmol/L BUN 90 H (9-20) mg/dL Creatinine 8.88 H* (0.66-1.25) mg/dL Glucose 109 H (74-99) mg/dL POC Glucose (mg/dL) (75-99) mg/dL Calcium 8.0 L (8.4-10.2) mg/dL Total Bilirubin 3.7 H (0.2-1.3) mg/dL AST 223 H (17-59) U/L Alkaline Phosphatase 385 H (38-126) U/L Ammonia (<30) umol/L CK-MB (CK-2) 11.8 H (0.0-2.4) ng/mL Troponin I 1.350 H* (0.000-0.034) ng/mL Albumin 3.1 L (3.5-5.0) g/dL 04/28/18 04/28/18 04/28/18 Range/Units 04:16 04:16 10:13 WBC 12.7 H (3.8-10.6) k/uL Hgb 10.3 L (13.0-17.5) gm/dL Hct 35.5 L (39.0-53.0) % MCV 71.7 L (80.0-100.0) fL MCH 20.8 L (25.0-35.0) pg MCHC 29.0 L (31.0-37.0) g/dL RDW 19.4 H (11.5-15.5) % Neutrophils # 10.5 H (1.3-7.7) k/uL PT (9.0-12.0) sec INR (<1.2) Sodium (137-145) mmol/L Potassium (3.5-5.1) mmol/L Chloride (98-107) mmol/L Carbon Dioxide (22-30) mmol/L BUN (9-20) mg/dL Creatinine (0.66-1.25) mg/dL Glucose (74-99) mg/dL POC Glucose (mg/dL) 110 H (75-99) mg/dL Calcium (8.4-10.2) mg/dL Total Bilirubin (0.2-1.3) mg/dL AST (17-59) U/L Alkaline Phosphatase (38-126) U/L Ammonia (<30) umol/L CK-MB (CK-2) 12.1 H (0.0-2.4) ng/mL Troponin I 1.340 H* (0.000-0.034) ng/mL Albumin (3.5-5.0) g/dL 04/28/18 04/28/18 Range/Units 15:10 15:10 WBC (3.8-10.6) k/uL Hgb (13.0-17.5) gm/dL Hct (39.0-53.0) % MCV (80.0-100.0) fL MCH (25.0-35.0) pg MCHC (31.0-37.0) g/dL RDW (11.5-15.5) % Neutrophils # (1.3-7.7) k/uL PT (9.0-12.0) sec INR (<1.2) Sodium (137-145) mmol/L Potassium 5.8 H (3.5-5.1) mmol/L Chloride (98-107) mmol/L Carbon Dioxide (22-30) mmol/L BUN (9-20) mg/dL Creatinine (0.66-1.25) mg/dL Glucose (74-99) mg/dL POC Glucose (mg/dL) (75-99) mg/dL Calcium (8.4-10.2) mg/dL Total Bilirubin (0.2-1.3) mg/dL AST (17-59) U/L Alkaline Phosphatase (38-126) U/L Ammonia 62 H (<30) umol/L CK-MB (CK-2) (0.0-2.4) ng/mL Troponin I (0.000-0.034) ng/mL Albumin (3.5-5.0) g/dL Diabetes panel 04/27/18 04/28/18 04/28/18 Range/Units 18:17 04:16 15:10 Sodium 134 L 133 L (137-145) mmol/L Potassium 5.5 H 5.9 H 5.8 H (3.5-5.1) mmol/L Chloride 94 L 93 L (98-107) mmol/L Carbon Dioxide 18 L 22 (22-30) mmol/L BUN 86 H 90 H (9-20) mg/dL Creatinine 8.60 H* 8.88 H* (0.66-1.25) mg/dL Glucose 123 H 109 H (74-99) mg/dL Calcium 8.1 L 8.0 L (8.4-10.2) mg/dL AST 215 H 223 H (17-59) U/L ALT 40 34 (21-72) U/L Alkaline Phosphatase 383 H 385 H (38-126) U/L Total Protein 7.1 6.8 (6.3-8.2) g/dL Albumin 3.3 L 3.1 L (3.5-5.0) g/dL Calcium panel 04/27/18 04/28/18 Range/Units 18:17 04:16 Calcium 8.1 L 8.0 L (8.4-10.2) mg/dL Albumin 3.3 L 3.1 L (3.5-5.0) g/dL Pituitary panel 04/27/18 04/28/18 04/28/18 Range/Units 18:17 04:16 15:10 Sodium 134 L 133 L (137-145) mmol/L Potassium 5.5 H 5.9 H 5.8 H (3.5-5.1) mmol/L Chloride 94 L 93 L (98-107) mmol/L Carbon Dioxide 18 L 22 (22-30) mmol/L BUN 86 H 90 H (9-20) mg/dL Creatinine 8.60 H* 8.88 H* (0.66-1.25) mg/dL Glucose 123 H 109 H (74-99) mg/dL Calcium 8.1 L 8.0 L (8.4-10.2) mg/dL Adrenal panel 04/27/18 04/28/18 04/28/18 Range/Units 18:17 04:16 15:10 Sodium 134 L 133 L (137-145) mmol/L Potassium 5.5 H 5.9 H 5.8 H (3.5-5.1) mmol/L Chloride 94 L 93 L (98-107) mmol/L Carbon Dioxide 18 L 22 (22-30) mmol/L BUN 86 H 90 H (9-20) mg/dL Creatinine 8.60 H* 8.88 H* (0.66-1.25) mg/dL Glucose 123 H 109 H (74-99) mg/dL Calcium 8.1 L 8.0 L (8.4-10.2) mg/dL Total Bilirubin 3.5 H 3.7 H (0.2-1.3) mg/dL AST 215 H 223 H (17-59) U/L ALT 40 34 (21-72) U/L Alkaline Phosphatase 383 H 385 H (38-126) U/L Total Protein 7.1 6.8 (6.3-8.2) g/dL Albumin 3.3 L 3.1 L (3.5-5.0) g/dL - Imaging CT scan - abdomen: report reviewed, image reviewed CT scan - pelvis: report reviewed, image reviewed Assessment and Plan Assessment: Impression: Renal failure indeterminate etiology. Metastatic carcinoma of indeterminate primary. History of prostate cancer treated with radiation therapy. Her pulmonary disease. Morbid obesity. Recommendations: PSA has been ordered which will be of value in trying to determine whether these metastatic lesions the liver are of prostatic origin. I will follow this patient with you.
--- NOTE | 2018-04-28 16:34 | P.CNPUL ---
History of Present Illness Consult date: 04/28/18 Requesting physician: Wilber Bryant Reason for consult: dyspnea, pleural effusion, abnormal CXR/CT, other Chief complaint: Shortness of breath, weight gain, abdominal distention History of present illness: This 82-year-old white male patient of Dr. Nichole, with past medical history of obstructive sleep apnea on CPAP therapy, chronic congestive heart failure or diastolic dysfunction, hypertension, hyperlipidemia, chronic kidney disease stage III, prostate cancer status post radiation, chronic atrial fibrillation with previous cardioversions, former smoker, was brought into the hospital on 0 04/27/2018 for evaluation of increasing shortness of breath, weight gain, and patient had a 14 pound weight gain in one week. Patient was recently in the hospital, for acute exacerbation of congestive heart failure, and was discharged home on oral Lasix, and he had been on metolazone as well. Last week he had difficulty passing urine, in addition he was experiencing some constipation. Yesterday he went to see his PCP Dr. Nichole in the office, he has significant weight gain, significant amount of upper and lower extremity edema, abdominal distention, and shortness of breath and patient was having intermittent chest pain for which he has been taken sublingual nitro. He was directed to the em ergency department for further evaluation. He has had worsening hypoxemia, patient normally wears 3 L of oxygen at home, and this had to be increased to 5 L because of low oxygen saturations. Chest x-ray showed no acute parenchymal pleural process, abdominal/pelvis CT showed near complete replacement of the liver with neoplastic change and with evidence of biliary obstruction. It also showed large volume of peritoneal fluid with moderate right pleural effusion, and multifocal skeletal lesions. Lab work showed acute kidney injury, with the BUN of 86, and creatinine of 8.60, calcium of 5.5, CO2 was 18. ProBNP was elevated at 10,600, patient had elevated troponins of 0.917, 1.350, and 1.340. White blood cell count was 9.7 on initial work, hemoglobin was 11.1, and INR is 1.2. Liver enzymes showed AST of 2:15, ALT of 40, and alkaline phosphatase was 383, serum ammonia was 62. Nephrology consultation was placed, patient's potassium has been treated with regular insulin, 50% dextrose. We're asked to see the patient for acute on chronic hypoxic rest or a failure related to ascites, small pleural effusion, acute congestive heart failure. Review of Systems All systems: negative Constitutional: Reports weakness, Denies chills, Denies fever Eyes: denies blurred vision, denies pain Ears, nose, mouth and throat: Denies headache, Denies sore throat Cardiovascular: Denies chest pain, Denies shortness of breath Respiratory: Reports dyspnea, Reports home oxygen, Reports sleep apnea, Denies cough Gastrointestinal: Reports constipation, Denies abdominal pain, Denies diarrhea, Denies nausea, Denies vomiting Genitourinary: Reports hematuria, Reports urinary retention Musculoskeletal: Denies myalgias Integumentary: Denies pruritus, Denies rash Neurological: Denies numbness, Denies weakness Psychiatric: Denies anxiety, Denies depression Endocrine: Denies fatigue, Denies weight change Past Medical History Past Medical History: Atrial Fibrillation, Cancer, Heart Failure, Hyperlipidemia, Hypertension Additional Past Medical History / Comment(s): prostate ca 1.5 year ago. rad iation (last tx 06/2015), anemia, sleep apnewa w/ use of cpap, acute pulmonary edema, macular degeneration, gout. Arthritis, DDD History of Any Multi-Drug Resistant Organisms: MRSA Date of last positivie culture/infection: 2006(per family) MDRO Source:: face/neck Past Surgical History: Cholecystectomy, Heart Catheterization With Stent, Hernia Repair, Joint Replacement, Orthopedic Surgery Additional Past Surgical History / Comment(s): cardioversions; BL shoulders replaced; amputation of left index finger; BL cataract, BETTIE w/ cardioversion, cardiac ablation, thoracentesis. Past Anesthesia/Blood Transfusion Reactions: No Reported Reaction Additional Past Anesthesia/Blood Transfusion Reaction / Comment(s): clausterphobia... previous blood transfusion-no reaction to it. Date of Last Stent Placement:: 2010 Past Psychological History: No Psychological Hx Reported Smoking Status: Former smoker Past Alcohol Use History: Occasional Additional Past Alcohol Use History / Comment(s): started smoking at age 18 (1954) and quit at age 26(1962) smoked 1 ppd. drinks 10 ounces of wine per day Past Drug Use History: None Reported - Past Family History Father Family Medical History: Myocardial Infarction ([place]) Additional Family Medical History / Comment(s): at age 61-mi Mother Family Medical History: CVA/TIA Additional Family Medical History / Comment(s): at age 83 from stroke Medications and Allergies Home Medications Medication Instructions Recorded Confirmed Type Atorvastatin Calcium 80 mg PO HS 12/15/13 04/27/18 History Nitroglycerin Sl Tabs [Nitrostat] 0.4 mg PO Q5M PRN 12/15/13 04/27/18 History amLODIPine [Norvasc] 10 mg PO DAILY 12/15/13 04/27/18 History Hydrocodone/Acetaminophen [[place] 1 tab PO Q6HR PRN 10/18/16 04/27/18 History 10-325] Lisinopril [Zestril] 2.5 mg PO DAILY 03/04/18 04/27/18 History Aspirin 81 mg PO DAILY chew 03/07/18 04/27/18 Rx Isosorbide Mononitrate ER [Imdur] 30 mg PO DAILY #30 tab.er.24h 03/07/18 04/27/18 Rx Potassium Chloride ER [K-Dur 20] 20 meq PO DAILY #30 tab.er.prt 03/07/18 04/27/18 Rx Allopurinol [Zyloprim] 100 mg PO DAILY 04/27/18 04/27/18 History Furosemide [Lasix] 40 mg PO DAILY 04/27/18 04/27/18 History Loratadine [Claritin] 10 mg PO DAILY 04/27/18 04/27/18 History Metolazone [Zaroxolyn] 2.5 mg PO MOWEFR 04/27/18 04/27/18 History Vit C/E/Zn/Coppr/Lutein/Zeaxan 1 cap PO DAILY 04/27/18 04/27/18 History [Preservision Areds 2 Softgel] Zolpidem [Ambien] 5 mg PO HS 04/27/18 04/27/18 History Allergies Allergy/AdvReac Type Severity Reaction Status Date / Time Iodinated Contrast- Oral and AdvReac KIDNEY Verified 04/27/18 16:50 IV Dye FAILURE iodine AdvReac kidney Verified 04/27/18 16:50 shutdown Physical Exam Vitals: Vital Signs Temp Pulse Pulse Resp BP BP Pulse Ox 04/28/18 08:35 98.5 F 66 16 92/50 96 04/28/18 04:00 98.3 F 77 22 99/55 95 04/28/18 00:00 98.2 F 85 18 159/70 97 04/27/18 20:00 98.2 F 85 85 22 112/63 111/77 100 04/27/18 19:27 97.8 F 77 14 124/59 100 04/27/18 17:43 20 Intake and Output 04/28/18 04/28/18 04/28/18 06:59 14:59 22:59 Intake Total 222 Output Total 85 Balance -85 222 Intake: Oral 222 Output: Urine 85 Other: Weight 116.9 kg GENERAL EXAM: Alert, confused, 82-year-old white male, currently on 4 L of oxygen, intermittently using his home BiPAP unit HEAD: Normocephalic/atraumatic. EYES: Normal reaction of pupils, equal size. Conjunctiva pink, sclera white. NOSE: Clear with pink turbinates. THROAT: No erythema or exudates. NECK: No masses, no JVD, no thyroid enlargement, no adenopathy. CHEST: No chest wall deformity. Symmetrical expansion. LUNGS: Equal air entry with diminished breath sounds at the bases CVS: Regular rate and rhythm, normal S1 and S2, no gallops, no murmurs, no rubs ABDOMEN: Nontender, obese, distended. No hepatosplenomegaly, normal bowel sounds, no guarding or rigidity. EXTREMITIES: No clubbing, 1+ lower extremity edema, abdominal wall edema no cyanosis, 2+ pulses and upper and lower extremities. MUSCULOSKELETAL: Muscle strength and tone normal. SPINE: No scoliosis or deformity SKIN: No rashes CENTRAL NERVOUS SYSTEM: Alert and oriented -2. No focal deficits, tone is normal in all 4 extremities. Results - Laboratory Findings CBC and BMP: 04/28/18 04:16 04/28/18 04:16 PT/INR, D-dimer PT 12.1 sec (9.0-12.0) H 04/27/18 18:25 INR 1.2 (<1.2) H 04/27/18 18:25 Abnormal lab findings: Abnormal Labs 04/27/18 04/27/18 04/27/18 18:17 18:17 18:17 WBC Hgb 11.1 L Hct 38.1 L MCV 74.1 L D MCH 21.6 L MCHC 29.1 L RDW 19.1 H Neutrophils # 7.8 H PT INR Sodium 134 L Potassium 5.5 H Chloride 94 L Carbon Dioxide 18 L BUN 86 H Creatinine 8.60 H* Glucose 123 H POC Glucose (mg/dL) Calcium 8.1 L Total Bilirubin 3.5 H AST 215 H Alkaline Phosphatase 383 H Ammonia CK-MB (CK-2) 10.3 H Troponin I 0.917 H* Albumin 3.3 L 04/27/18 04/27/18 04/28/18 18:25 23:28 04:16 WBC Hgb Hct MCV MCH MCHC RDW Neutrophils # PT 12.1 H INR 1.2 H Sodium 133 L Potassium 5.9 H Chloride 93 L Carbon Dioxide BUN 90 H Creatinine 8.88 H* Glucose 109 H POC Glucose (mg/dL) Calcium 8.0 L Total Bilirubin 3.7 H AST 223 H Alkaline Phosphatase 385 H Ammonia CK-MB (CK-2) 11.8 H Troponin I 1.350 H* Albumin 3.1 L 04/28/18 04/28/18 04/28/18 04:16 04:16 10:13 WBC 12.7 H Hgb 10.3 L Hct 35.5 L MCV 71.7 L MCH 20.8 L MCHC 29.0 L RDW 19.4 H Neutrophils # 10.5 H PT INR Sodium Potassium Chloride Carbon Dioxide BUN Creatinine Glucose POC Glucose (mg/dL) 110 H Calcium Total Bilirubin AST Alkaline Phosphatase Ammonia CK-MB (CK-2) 12.1 H Troponin I 1.340 H* Albumin 04/28/18 15:10 WBC Hgb Hct MCV MCH MCHC RDW Neutrophils # PT INR Sodium Potassium Chloride Carbon Dioxide BUN Creatinine Glucose POC Glucose (mg/dL) Calcium Total Bilirubin AST Alkaline Phosphatase Ammonia 62 H CK-MB (CK-2) Troponin I Albumin - Diagnostic Findings Chest x-ray: report reviewed Additional studies: Abdomen/pelvis CT Assessment and Plan Plan: Assessment: #1. Acute on chronic hypoxemic respiratory failure related to acute exacerbation of congestive heart failure, with diastolic dysfunction, ascites #2. Metastatic carcinoma with liver lesions seen on the CT of the abdomen and pelvis. Unknown primary. CT abdomen and pelvis showed near complete replacement of the liver with neoplastic change and evidence of biliary obstruction. Large volume peritoneal fluid and multifocal skeletal lesions. #3. Acute kidney injury likely related to ATN #4. Hyperkalemia related to a TIA #5. Chronic kidney disease, stage III #6. Elevated troponins, likely related to acute kidney injury #7. Elevated liver enzymes #8. Chronic atrial fibrillation history of previous cardioversions, currently in sinus rhythm, not on chronic anticoagulation #9. History prostate cancer status post radiation #10. Hematuria #11. Obstructive sleep apnea on BiPAP therapy #12. Previous history of non-ST elevated myocardial infarction Plan: We'll consult interventional radiology for ultrasound-guided paracentesis and CT-guided liver biopsy and diagnostic reasons. Patient had taken his aspirin a couple days ago, we will be unable to proceed with the liver biopsy. Patient is awaiting placement of temporary hemodialysis catheter, urgent hemodialysis. He is oliguric, and hematuria, urology service is following, nephrology service is following, patient's potassium was treated with insulin and 50% dextrose. He has a small right-sided pleural effusion, but will benefit from a large volume paracentesis, then thoracentesis. Medical oncology has been consulted. The findings of the CT of the abdomen and pelvis were discussed with the patient and his family, patient's family may consider comfort care measures have the hemodialysis catheter not be placed in the neck or subclavian area. For now continue with supportive treatment. GI service is following. Continue with the BiPAP use at bedtime and as needed during the day. Overall prognosis is guarded. I performed a history & physical examination of the patient and discussed their management with my nurse practitioner, Freda Castillo. I reviewed the nurse practitioner's note and agree with the documented findings and plan of care. Lung sounds are positive for diminished breath sounds. The findings and the impression was discussed with the patient. I attest to the documentation by the nurse practitioner. Time with Patient: Greater than 30
[2018-04-28 17:24] VITALS: PULSE 75
[2018-04-28] MEDS: MIDAZOLAM 2 MG/2 ML VIAL IVP ONE ×2 (18:00→18:10)
[2018-04-28] MEDS ORDERED: fentaNYL (PF) 50 MCG/ML 2 ML AMP IVP ONE (18:00)
[2018-04-28] MEDS ORDERED: LIDOCAINE 1% INJ 10MG/ML (20 ML MDV) SQ ONE (18:05)
[2018-04-28] MEDS ORDERED: SODIUM CHLORIDE 0.9% 500 ML 500 ML IV ONE (18:15)
--- NOTE | 2018-04-28 18:35 | CONS ---
CONSULTATION This is an 82-year-old gentleman who has been admitted with multiple medical problems. Patient has a history of acute and chronic renal failure. Patient has a high BUN, creatinine and potassium. I was consulted for placement of urgent dialysis catheter. MEDICAL HISTORY: 1. Cancer of the prostate. 2. History of coronary artery disease. 3. History of hyperlipidemia. 4. History of hypertension. 5. History of atrial fibrillation. 6. History of sleep apnea. CT scan of the abdomen showed near-complete replacement of the liver with neoplastic changes and biliary obstruction. There is a large amount of the peritoneal fluid with right-sided pleural effusion. PHYSICAL EXAMINATION: Patient is very restless. Neck is supple. Chest reveals crackles and rhonchi bilaterally. Abdomen is protuberant. Femoral pulses are present. PLAN: Placement of urgent triple-lumen dialysis catheter, right femoral approach. We will dialyze in a few days. If the patient is to have a permanent catheter, we will arrange for a permanent catheter. MMODL / IJN: [id number] /
--- NOTE | 2018-04-28 18:41 | OP ---
OPERATIVE REPORT PREOPERATIVE DIAGNOSIS: Acute and chronic renal failure. PROCEDURE: Ultrasound-guided triple-lumen dialysis catheter placement via right femoral approach. DESCRIPTION OF PROCEDURE: Right groin was prepped and draped in usual sterile manner. Lidocaine 1% was infiltrated. Ultrasound-guided micropuncture was made in right common femoral vein. Micropuncture guidewire was passed and 4-[place]itan dilator advanced on the top of the guidewire. Then we passed a regular guidewire. Then the dilator was advanced and then we placed a triple-lumen dialysis catheter, secured with 3-0 nylon, flushed with heparin saline and hep-locked. Dressing was applied. Patient tolerated the procedure well. MMODL / IJN: [id number] /
--- NOTE | 2018-04-28 19:05 | CONS ---
CONSULTATION REASON FOR CONSULT: Renal failure. HISTORY OF PRESENT ILLNESS: Patient is an 82-year-old male who was admitted to the hospital with increased weakness, decreased urine output and fatigue. Patient was brought in by his family. Two of his daughters are nurses. Patient was found to have a serum creatinine of 8.6 mg/dL. Review of previous labs shows a serum creatinine of 1.48 on 03/07/2018 and another creatinine of 1.28 on 03/06/2018. Patient denies history of use of NSAIDs. On imaging on this admission, patient was found to have multiple liver lesions with almost complete replacement of the liver with neoplastic change and evidence of biliary obstruction. There were multifocal skeletal lesions noted as well. There was moderate pleural effusion noted. There was no evidence of hydronephrosis on the CT scan. Patient was evaluated by Urology as well, as he has a previous history of prostatic cancer, status post radiation therapy. Since there is no obvious obstruction at this time, a PSA has been ordered. Patient has had poor urine output. It is mainly bloody urine, and this is possibly related to trauma. Blood pressure was not low at the time of admission. This morning systolic blood pressure was about 99 mmHg. Patient has not had any recent IV dyes. He was scheduled to see us as outpatient next week. PAST MEDICAL HISTORY: 1. History of prostatic cancer. 2. Hypertension. 3. Obstructive sleep apnea. 4. History of diastolic heart failure. 5. Chronic atrial fibrillation. 6. Macular degeneration. 7. History of gout. 8. Osteoarthritis. PAST SURGICAL HISTORY: 1. Cholecystectomy. 2. Cardiac catheterization with coronary stent placement. 3. Hernia repair. 4. Cataract surgery. 5. Cardioversion. 6. Amputation of left index finger. SOCIAL HISTORY: Patient is a former smoker. He does have a history of significant alcohol use as well. MEDICATIONS: Medications currently include: 1. Calcium. 2. Norvasc. 3. Zestril. 4. Aspirin. 5. Imdur. 6. Potassium. 7. Zyloprim. 8. Lasix. 9. Claritin. 10.Zaroxolyn. 11.Ambien. ALLERGIES: INCLUDE IV DYE, IODINE. REVIEW OF SYSTEMS: As per HPI. Other systems negative. PHYSICAL EXAMINATION: Patient is confused. He is uncomfortable. He is not in any acute distress. He is mildly short of breath. Blood pressure this morning was 99/55 and repeat blood pressure was 92/50, heart rate 75 per minute. Patient is afebrile. EXAMINATION OF THE HEART: S1 and S2. EXAMINATION OF LUNGS: Decreased breath sounds at the bases. Bilateral basal crackles are heard. ABDOMEN: Soft, distended, obese, non-tender. Examination of lower extremities shows edema 1+ bilaterally. [employer] exam shows patient is confused. He is moving all 4 extremities. LABS: Hemoglobin 10.3, sodium 133, potassium 5.9. This morning BUN 90, serum creatinine 8.8, calcium 8.0, troponin 1.34. Chest x-ray shows no acute process. ASSESSMENT: 1. Acute kidney injury with serum creatinine going up from 1.2 mg/dL on 03/06/2018 to 8.6 this admission, most likely acute tubular necrosis. There is no evidence of obstruction. Patient currently is uremic and he will be dialyzed. We were waiting for the family to decide if they would like to proceed with acute dialysis, given his underlying significant liver findings. They did, however, decide to proceed with dialysis. Therefore patient will be dialyzed today as well as in a.m. This will hopefully help to improve his mentation, and ideally I do not believe patient is a good candidate for long-term renal replacement therapy. I am hoping his renal function will recover, given his creatinine of 1.2 and 1.4 in February. 2. Hyperkalemia associated with acute kidney injury. Expect improvement with dialysis. 3. Metabolic acidosis secondary to renal failure. 4. Multiple liver lesions suggestive of malignancy with biliary obstruction. Oncology has been consulted. 5. Hyperbilirubinemia/obstructive jaundice from underlying liver cancer versus metastatic disease. 6. Confusion secondary to uremia. PLAN: Hemodialysis today as well as in a.m. I will start gentle IV hydration, as chest x-ray currently shows no evidence of CHF. Patient does have third spacing with interstitial edema and pleural effusions. Repeat labs in a.m. Overall prognosis is guarded. MMODL / IJN: [id number] /
[2018-04-28] MEDS: HYDROcodone/APAP 10-325MG 1 EACH TAB PO PRN (20:43)
[2018-04-28] MEDS: SODIUM CHLORIDE 0.9% 1,000 ML IV SCH (20:46)
[2018-04-28] MEDS ORDERED: HEPARIN SODIUM,PORCINE 5,000 UNIT/ML 1 ML VIAL ONE (22:00)
[2018-04-28] MEDS: ONDANSETRON 4 MG/2 ML VIAL IVP PRN (22:24)
[2018-04-28] MEDS: ZOLPIDEM 5 MG TAB PO SCH (22:28)
--- NOTE | 2018-04-28 22:49 | P.CONS ---
History of Present Illness - Reason for Consult Consult date: 04/28/18 liver and bone lesions Requesting physician: Raj Kendrick - Chief Complaint SOB, swlling, 30lb wt gain - History of Present Illness _Pt is unable to communicate his history so it is taken from the EMR. 05/06/17 pt was referred to Dr. Hester for evaluation of T2 [facility] 7 prostate cancer diagnosed in 12/07 treated with LHRH and brachytherapy radiation. He had a PET 04/04/17 with no evidence of metastasis. He did receive some iron infusions and has not been seen in our office in the last few months. Pt presented with CHF symptoms-swelling, SOB, 30lb wt. gain and chest pain. On work up her was found to have elevate troponins, BNP, acute renal failure with cr of 8.8 (today), bilirubin 3.7. CT scan reveled liver lesions and cristina abnormalities described as osteopenic lesions. Pt is restless with and 2 daughters at bedside. He is able to sit at bedside, not answering questions but talking now and again to family. Is not c/o pain. Review of Systems family at bedside, proxy report ROS unobtainable: due to mental status Past Medical History Past Medical History: Atrial Fibrillation, Cancer, Heart Failure, Hyperlipidemia, Hypertension Additional Past Medical History / Comment(s): prostate ca 1.5 year ago. radiation (last tx 06/2015), anemia, sleep apnewa w/ use of cpap, acute pulmonary edema, macular degeneration, gout. 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 Past Anesthesia/Blood Transfusion Reactions: No Reported Reaction Additional Past Anesthesia/Blood Transfusion Reaction / Comm: clausterphobia... previous blood transfusion-no reaction to it. Date of Last Stent Placement:: 2010 Past Psychological History: No Psychological Hx Reported Smoking Status: Former smoker Past Alcohol Use History: Occasional Additional Past Alcohol Use History / Comment(s): started smoking at age 18 (1954) and quit at age 26(1961) smoked 1 ppd. drinks 10 ounces of wine per day Past Drug Use History: None Reported - Past Family History Father Family Medical History: Myocardial Infarction ([place]) Additional Family Medical History / Comment(s): at age 61-mi Mother Family Medical History: CVA/TIA Additional Family Medical History / Comment(s): at age 83 from stroke Medications and Allergies Home Medications Medication Instructions Recorded Confirmed Type Atorvastatin Calcium 80 mg PO HS 12/15/13 04/27/18 History Nitroglycerin Sl Tabs [Nitrostat] 0.4 mg PO Q5M PRN 12/15/13 04/27/18 History amLODIPine [Norvasc] 10 mg PO DAILY 12/15/13 04/27/18 History Hydrocodone/Acetaminophen [Helix 1 tab PO Q6HR PRN 10/18/16 04/27/18 History 10-325] Lisinopril [Zestril] 2.5 mg PO DAILY 03/04/18 04/27/18 History Aspirin 81 mg PO DAILY chew 03/07/18 04/27/18 Rx Isosorbide Mononitrate ER [Imdur] 30 mg PO DAILY #30 tab.er.24h 03/07/18 04/27/18 Rx Potassium Chloride ER [K-Dur 20] 20 meq PO DAILY #30 tab.er.prt 03/07/18 04/27/18 Rx Allopurinol [Zyloprim] 100 mg PO DAILY 04/27/18 04/27/18 History Furosemide [Lasix] 40 mg PO DAILY 04/27/18 04/27/18 History Loratadine [Claritin] 10 mg PO DAILY 04/27/18 04/27/18 History Metolazone [Zaroxolyn] 2.5 mg PO MOWEFR 04/27/18 04/27/18 History Vit C/E/Zn/Coppr/Lutein/Zeaxan 1 cap PO DAILY 04/27/18 04/27/18 History [Preservision Areds 2 Softgel] Zolpidem [Ambien] 5 mg PO HS 04/27/18 04/27/18 History Allergies Allergy/AdvReac Type Severity Reaction Status Date / Time Iodinated Contrast- Oral and AdvReac KIDNEY Verified 04/27/18 16:50 IV Dye FAILURE iodine AdvReac kidney Verified 04/27/18 16:50 shutdown Physical Exam Vitals: Vital Signs Temp Pulse Pulse Resp BP BP Pulse Ox 04/28/18 12:00 98.1 F 86 22 92/51 100 04/28/18 08:35 98.5 F 66 16 92/50 96 04/28/18 04:00 98.3 F 77 22 99/55 95 04/28/18 00:00 98.2 F 85 18 159/70 97 04/27/18 20:00 98.2 F 85 85 22 112/63 111/77 100 04/27/18 19:27 97.8 F 77 14 124/59 100 04/27/18 17:43 20 Intake and Output 04/28/18 04/28/18 04/28/18 06:59 14:59 22:59 Intake Total 222 Output Total 85 Balance -85 222 Intake: Oral 222 Output: Urine 85 Other: Voiding Method Indwelling Catheter Weight 116.9 kg - Constitutional General appearance: disheveled, mild distress, morbidly obese - EENT Eyes: EOMI, scleral icterus (mild) - Neck Neck: no lymphadenopathy - Respiratory Respiratory: bilateral: rales - Cardiovascular Heart sounds: normal: S1, S2 Abnormal Heart Sounds: systolic murmur leg Peripheral Edema: bilateral: 1+, Other (scaral edema noted) - Gastrointestinal General gastrointestinal: no absent bowel sounds, no decreased bowel sounds, distended, no hepatomegaly, no hyperactive bowel sounds, normal bowel sounds, no organomegaly, no rigid, no scaphoid, soft, no splenomegaly, no tenderness, no umbilical hernia, no ventral hernia - Integumentary Integumentary: pale - Musculoskeletal Musculoskeletal: generalized weakness - Psychiatric Psychiatric: no A&O x's 3, no appropriate affect, no intact judgment & insight Results CBC & Chem 7: 04/28/18 04:16 04/28/18 15:10 Labs: Abnormal Lab Results - Last 24 Hours (Table) 04/27/18 04/27/18 04/27/18 Range/Units 18:17 18:17 18:17 WBC (3.8-10.6) k/uL Hgb 11.1 L (13.0-17.5) gm/dL Hct 38.1 L (39.0-53.0) % MCV 74.1 L D (80.0-100.0) fL MCH 21.6 L (25.0-35.0) pg MCHC 29.1 L (31.0-37.0) g/dL RDW 19.1 H (11.5-15.5) % Neutrophils # 7.8 H (1.3-7.7) k/uL PT (9.0-12.0) sec INR (<1.2) Sodium 134 L (137-145) mmol/L Potassium 5.5 H (3.5-5.1) mmol/L Chloride 94 L (98-107) mmol/L Carbon Dioxide 18 L (22-30) mmol/L BUN 86 H (9-20) mg/dL Creatinine 8.60 H* (0.66-1.25) mg/dL Glucose 123 H (74-99) mg/dL POC Glucose (mg/dL) (75-99) mg/dL Calcium 8.1 L (8.4-10.2) mg/dL Total Bilirubin 3.5 H (0.2-1.3) mg/dL AST 215 H (17-59) U/L Alkaline Phosphatase 383 H (38-126) U/L Ammonia (<30) umol/L CK-MB (CK-2) 10.3 H (0.0-2.4) ng/mL Troponin I 0.917 H* (0.000-0.034) ng/mL Albumin 3.3 L (3.5-5.0) g/dL 04/27/18 04/27/18 04/28/18 Range/Units 18:25 23:28 04:16 WBC (3.8-10.6) k/uL Hgb (13.0-17.5) gm/dL Hct (39.0-53.0) % MCV (80.0-100.0) fL MCH (25.0-35.0) pg MCHC (31.0-37.0) g/dL RDW (11.5-15.5) % Neutrophils # (1.3-7.7) k/uL PT 12.1 H (9.0-12.0) sec INR 1.2 H (<1.2) Sodium 133 L (137-145) mmol/L Potassium 5.9 H (3.5-5.1) mmol/L Chloride 93 L (98-107) mmol/L Carbon Dioxide (22-30) mmol/L BUN 90 H (9-20) mg/dL Creatinine 8.88 H* (0.66-1.25) mg/dL Glucose 109 H (74-99) mg/dL POC Glucose (mg/dL) (75-99) mg/dL Calcium 8.0 L (8.4-10.2) mg/dL Total Bilirubin 3.7 H (0.2-1.3) mg/dL AST 223 H (17-59) U/L Alkaline Phosphatase 385 H (38-126) U/L Ammonia (<30) umol/L CK-MB (CK-2) 11.8 H (0.0-2.4) ng/mL Troponin I 1.350 H* (0.000-0.034) ng/mL Albumin 3.1 L (3.5-5.0) g/dL 04/28/18 04/28/18 04/28/18 Range/Units 04:16 04:16 10:13 WBC 12.7 H (3.8-10.6) k/uL Hgb 10.3 L (13.0-17.5) gm/dL Hct 35.5 L (39.0-53.0) % MCV 71.7 L (80.0-100.0) fL MCH 20.8 L (25.0-35.0) pg MCHC 29.0 L (31.0-37.0) g/dL RDW 19.4 H (11.5-15.5) % Neutrophils # 10.5 H (1.3-7.7) k/uL PT (9.0-12.0) sec INR (<1.2) Sodium (137-145) mmol/L Potassium (3.5-5.1) mmol/L Chloride (98-107) mmol/L Carbon Dioxide (22-30) mmol/L BUN (9-20) mg/dL Creatinine (0.66-1.25) mg/dL Glucose (74-99) mg/dL POC Glucose (mg/dL) 110 H (75-99) mg/dL Calcium (8.4-10.2) mg/dL Total Bilirubin (0.2-1.3) mg/dL AST (17-59) U/L Alkaline Phosphatase (38-126) U/L Ammonia (<30) umol/L CK-MB (CK-2) 12.1 H (0.0-2.4) ng/mL Troponin I 1.340 H* (0.000-0.034) ng/mL Albumin (3.5-5.0) g/dL 04/28/18 04/28/18 Range/Units 15:10 15:10 WBC (3.8-10.6) k/uL Hgb (13.0-17.5) gm/dL Hct (39.0-53.0) % MCV (80.0-100.0) fL MCH (25.0-35.0) pg MCHC (31.0-37.0) g/dL RDW (11.5-15.5) % Neutrophils # (1.3-7.7) k/uL PT (9.0-12.0) sec INR (<1.2) Sodium (137-145) mmol/L Potassium 5.8 H (3.5-5.1) mmol/L Chloride (98-107) mmol/L Carbon Dioxide (22-30) mmol/L BUN (9-20) mg/dL Creatinine (0.66-1.25) mg/dL Glucose (74-99) mg/dL POC Glucose (mg/dL) (75-99) mg/dL Calcium (8.4-10.2) mg/dL Total Bilirubin (0.2-1.3) mg/dL AST (17-59) U/L Alkaline Phosphatase (38-126) U/L Ammonia 62 H (<30) umol/L CK-MB (CK-2) (0.0-2.4) ng/mL Troponin I (0.000-0.034) ng/mL Albumin (3.5-5.0) g/dL CT scan - abdomen: report reviewed CT scan - pelvis: report reviewed Assessment and Plan (1) Bone lesion Current Visit: Yes Status: Acute Priority: High Code(s): M89.9 - DISORDER OF BONE, UNSPECIFIED SNOMED Code(s): 85316059 (2) Prostate cancer Current Visit: Yes Status: Acute Priority: High Code(s): C61 - MALIGNANT NEOPLASM OF PROSTATE SNOMED Code(s): 657675585 (3) Liver lesion Current Visit: Yes Status: Chronic Priority: High Code(s): K76.9 - LIVER DISEASE, UNSPECIFIED SNOMED Code(s): 329056533 Plan: It is unclear at this time if what is evident on imaging is metastatic disease from prostate malignancy (PSA was 1.4 in Feb) or a new liver primary, there is also the question as to where the bone lesions are arising from-mets from prostate or liver. It is clearly understood that a biopsy and tissue diagnosis would be necessary to make a diagnosis. Tumor markers have been ordered for evaluation, as a liver biopsy is not reasonable in pt current condition. Tumor marker results will help provide information to guide decision making as to if family would want to pursue aggressive vs comfort care. Family has made clear that chemotherapy would not b e considered as a treatment modality. For now, treatment of pt symptoms is reasonable until some more information is available
--- NOTE | 2018-04-28 23:32 | PN ---
PROGRESS NOTE DATE OF SERVICE: 04/28/2018 PRESENTING COMPLAINT: Tired, restless. INTERVAL HISTORY: This patient with multiple medical problems was admitted with fluid overload, severe renal failure, hematuria, encephalopathic. This morning patient's 3 daughters are present. Patient is somewhat restless. REVIEW OF SYSTEMS: Attempted for constitutional, cardiovascular, GI, pulmonary; relevant findings as above. CURRENT MEDICATIONS: Reviewed. They include Imdur, IV fluids. PHYSICAL EXAMINATION: Temperature 98.1, pulse 86, respiration 22, blood pressure 92/51, pulse ox 100% on 5 L. GENERAL APPEARANCE: Sitting at the edge of the bed, somewhat restless. EYES: Pupils equal. Conjunctivae pale. HEENT: External appearance of nose and ears normal. Oral cavity dry. RESPIRATORY: Effort increased. LUNGS: Diminished breath sounds. CARDIOVASCULAR: Heart sounds distant. Gross edema present. ABDOMEN: Distended. Edema of the abdominal wall. PSYCHIATRY: Patient able to answer some questions, though slightly lethargic. NEUROLOGICAL: Moving all 4 limbs. INVESTIGATIONS: White count 12.7, hemoglobin 10.3, potassium 5.9, BUN 90, creatinine 8.88. Troponin 1.3. ASSESSMENT: 1. Acute renal failure, probably acute tubular necrosis, and also prerenal component from decreased oral intake and patient being on diuretics and ALDO inhibitor. 2. Acute fluid overload from third spacing. 3. Morbid obesity with body mass index of . 4. Acute metabolic encephalopathy from uremic symptoms. 5. Acute on chronic congestive heart failure exacerbation from diastolic dysfunction, ejection fraction 60%. 6. History of atrial fibrillation. 7. Coronary artery disease with stent. 8. Colonic diverticulosis. 9. Essential hypertension. 10.Hyperlipidemia. 11.Obstructive sleep apnea. Using CPAP machine. 12.Obesity; body mass index more than 40. 13.Significant hematuria. 14.Oncology team is reviewing the patient's case. They think the patient may have underlying prostate cancer. Will take it from there. 15.Multiple lesions in the liver with lytic lesions in the bone. At this point, primary is unknown. PLAN: I spoke this morning with Dr. Shaw from Nephrology. She did indicate the patient will have some improvement with urgent dialysis; will improve some at least of his symptoms. Then I spoke with the patient's family. At this point they leaning towards that. Patient will be monitored very closely, hemodynamics. Patient is rather ill. We will also give some [place] for pain control. ADVANCED CARE PLANNING: This was discussed at length with the patient's and 3 daughters. They do understand the patient's prognosis is not good. The patient's quality of life even before February when his creatinine was 1.9 was not too good. Now, especially with the findings of metastasis in the liver and bony metastases, there is further concern about his overall quality of life. At this point they have decided to proceed with DO NOT RESUSCITATE. Will proceed from there. Total time spent on this was more than 30 minutes. SARAH / ERINN: [id number] /
[2018-04-29] MEDS ORDERED: ONDANSETRON 4 MG/2 ML VIAL ONE (05:00)
[2018-04-29 06:37] LABS: INR 1.3 (<1.2); Prothrombin Time 13.3 sec (9.0-12.0)
[2018-04-29 06:49] LABS: Phosphorus 6.9 mg/dL (2.5-4.5); Total Bilirubin 4.8 mg/dL (0.2-1.3); Total Protein 6.7 g/dL (6.3-8.2)
[2018-04-29] MEDS: ISOSORBIDE MONONITRATE ER 30 MG TAB.ER.24H PO SCH (09:45)
--- NOTE | 2018-04-29 10:30 | IR ---
EXAMINATION TYPE: IR cvc insert non tunneled DATE OF EXAM: 04/28/2018 COMPARISON: NONE HISTORY: Fluoroscopy time. Fluoroscopy was provided to the referring clinician. Fluoroscopy of 0.1 minutes provided
--- NOTE | 2018-04-29 11:30 | P.PN ---
Subjective Progress Note Date: 04/29/18 Principal diagnosis: Acute on chronic hypoxemic respiratory failure related to acute exacerbation of CHF, with diastolic dysfunction, ascites, metastatic carcinoma with unknown prim kalie This 82-year-old white male patient of Dr. Nichole, with past medical history of obstructive sleep apnea on CPAP therapy, chronic congestive heart failure or diastolic dysfunction, hypertension, hyperlipidemia, chronic kidney disease stage III, prostate cancer status post radiation, chronic atrial fibrillation with previous cardioversions, former smoker, was brought into the hospital on 04/27/2018 for evaluation of increasing shortness of breath, weight gain, and patient had a 14 pound weight gain in one week. Patient was recently in the hospital, for acute exacerbation of congestive heart failure, and was discharged home on oral Lasix, and he had been on metolazone as well. Last week he had difficulty passing urine, in addition he was experiencing some constipation. Yesterday he went to see his PCP Dr. Nichole in the office, he has significant weight gain, significant amount of upper and lower extremity edema, abdominal distention, and shortness of breath and patient was having intermittent chest pain for which he has been taken sublingual nitro. He was directed to the emergency department for further evaluation. He has had worsening hypoxemia, patient normally wears 3 L of oxygen at home, and this had to be increased to 5 L because of low oxygen saturations. Chest x-ray showed no acute parenchymal pleural process, abdominal/pelvis CT showed near complete replacement of the liver with neoplastic change and with evidence of biliary obstruction. It also showed large volume of peritoneal fluid with moderate right pleural effusion, and multifocal skeletal lesions. Lab work showed acute kidney injury, with the BUN of 86, and creatinine of 8.60, calcium of 5.5, CO2 was 18. ProBNP was elevated at 10,600, patient had elevated troponins of 0.917, 1.350, and 1.340. White blood cell count was 9.7 on initial work, hemoglobin was 11.1, and INR is 1.2. Liver enzymes showed AST of 2:15, ALT of 40, and alkaline phosphatase was 383, serum ammonia was 62. Nephrology consultation was placed, patient's potassium has been treated with regular insulin, 50% dextrose. We're asked to see the patient for acute on chronic hypoxic rest or a failure related to ascites, small pleural effusion, acute congestive heart failure. On 04/29/2018 patient seen in follow-up on selective care unit, rest night he had temporary hemodialysis catheter placed emergently in his left groin and he had his first hemodialysis treatment would removal of 500 mL of fluid. This morning he is having hemodialysis treatment, dissipate removing another 500 mL of fluid, his blood pressures are marginal, was systolic in the 80s and 90s. Patient has been scheduled for ultrasound-guided paracentesis today at 11:00. Patient is resting in bed, as he is lethargic, but easily arousable, his pulse ox is 94% on 5 L of oxygen, no fever or chills, sounds reveal few scattered rhonchi, no significant wheezing or rales. Abdomen remains large and distended, yesterday patient was having hematuria, and his Ayala catheter was becoming occluded with blood clots, patient was seen by urology service, per patient's request and request, Ayala catheter has been discontinued, and patient has been voiding. Today's labs have been reviewed, INR is 1.3, no CBC was done, BMP showed a sodium of 135, potassium is 6.0, chloride was 93, CO2 was 24, BUN is 71, creatinine is 8.09. Total bilirubin is up to 4.8, AST is 209, ALT is 41, alkaline phosphatase is 359, AFP was greater than 100,000, CEA was 0.8. Objective - Vital Signs Vital signs: Vital Signs Temp 99.2 F 04/29/18 08:30 Pulse 75 04/28/18 15:20 Resp 22 04/29/18 08:30 BP 83/37 04/29/18 08:30 Pulse Ox 94 L 04/29/18 08:30 Intake & Output 04/28/18 04/29/18 04/29/18 18:59 06:59 18:59 Intake Total 272 Output Total 0 Balance 272 0 Weight 87 kg Intake: IV 50 Oral 222 Output: Urine 0 Other: Voiding Method Incontinent Incontinent Incontinent # Voids 1 - Exam GENERAL EXAM: Lethargic, confused, 82-year-old white male, currently on 5 L of oxygen, intermittently using his home BiPAP unit. Patient is having hemodialysis treatment HEAD: Normocephalic/atraumatic. EYES: Normal reaction of pupils, equal size. Conjunctiva pink, sclera white. NOSE: Clear with pink turbinates. THROAT: No erythema or exudates. NECK: No masses, no JVD, no thyroid enlargement, no adenopathy. CHEST: No chest wall deformity. Symmetrical expansion. LUNGS: Equal air entry with diminished breath sounds at the bases, a few scattered rhonchi CVS: Regular rate and rhythm, normal S1 and S2, no gallops, no murmurs, no rubs ABDOMEN: Nontender, obese, distended. No hepatosplenomegaly, normal bowel sounds, no guarding or rigidity. EXTREMITIES: No clubbing, 1+ lower extremity edema, abdominal wall edema no cyanosis, 2+ pulses and upper and lower extremities. MUSCULOSKELETAL: Muscle strength and tone normal. SPINE: No scoliosis or deformity SKIN: No rashes CENTRAL NERVOUS SYSTEM: Alert and oriented -1. No focal deficits, tone is normal in all 4 extremities. - Labs CBC & Chem 7: 04/28/18 04:16 04/29/18 06:10 Labs: Abnormal Lab Results - Last 24 Hours (Table) 04/28/18 04/28/18 04/28/18 Range/Units 15:10 15:10 15:10 PT (9.0-12.0) sec INR (<1.2) Sodium (137-145) mmol/L Potassium 5.8 H (3.5-5.1) mmol/L Chloride (98-107) mmol/L BUN (9-20) mg/dL Creatinine (0.66-1.25) mg/dL Calcium (8.4-10.2) mg/dL Phosphorus (2.5-4.5) mg/dL Total Bilirubin (0.2-1.3) mg/dL AST (17-59) U/L Alkaline Phosphatase (38-126) U/L Ammonia 62 H (<30) umol/L Albumin (3.5-5.0) g/dL Tumor Marker AFP >080498.0 H (0.0-7.9) ng/mL 04/29/18 04/29/18 Range/Units 06:10 06:10 PT 13.3 H (9.0-12.0) sec INR 1.3 H (<1.2) Sodium 135 L (137-145) mmol/L Potassium 6.0 H (3.5-5.1) mmol/L Chloride 93 L (98-107) mmol/L BUN 71 H (9-20) mg/dL Creatinine 8.09 H* (0.66-1.25) mg/dL Calcium 8.0 L (8.4-10.2) mg/dL Phosphorus 6.9 H (2.5-4.5) mg/dL Total Bilirubin 4.8 H (0.2-1.3) mg/dL AST 209 H (17-59) U/L Alkaline Phosphatase 359 H (38-126) U/L Ammonia (<30) umol/L Albumin 3.0 L (3.5-5.0) g/dL Tumor Marker AFP (0.0-7.9) ng/mL Assessment and Plan Plan: Assessment: #1. Acute on chronic hypoxemic respiratory failure related to acute exacerbation of congestive heart failure, with diastolic dysfunction, ascites #2. Metastatic carcinoma with liver lesions seen on the CT of the abdomen and pelvis. Unknown primary. CT abdomen and pelvis showed near complete replacement of the liver with neoplastic change and evidence of biliary obstruction. Large volume peritoneal fluid and multifocal skeletal lesions. #3. Acute kidney injury likely related to ATN, status post temporary HD catheter placement, and initiation on hemodialysis #4. Hyperkalemia related to a TIA #5. Chronic kidney disease, stage III #6. Elevated troponins, likely related to acute kidney injury #7. Elevated liver enzymes #8. Chronic atrial fibrillation history of previous cardioversions, currently in sinus rhythm, not on chronic anticoagulation #9. History prostate cancer status post radiation #10. Hematuria #11. Obstructive sleep apnea on BiPAP therapy #12. Previous history of non-ST elevated myocardial infarction Plan: Continue with supportive treatment, patient's family decided on the DO NOT RESUSCITATE CODE STATUS, dialysis was initiated last night, and patient is having another hemodialysis treatment today. He has been scheduled for paracentesis today. Possible liver biopsy in the next few days. We'll continue to follow. I performed a history & physical examination of the patient and discussed their management with my nurse practitioner, Freda Castillo. I reviewed the nurse practitioner's note and agree with the documented findings and plan of care. Lung sounds are positive for diminished breath sounds. The findings and the impression was discussed with the patient. I attest to the documentation by the nurse practitioner. Time with Patient: Less than 30
--- NOTE | 2018-04-29 14:11 | P.PN ---
Subjective Patient is seen in follow for acute kidney injury. He was started on hemodialysis this admission due to uremia. He completed a second treatment of hemodialysis this morning with 500 mL ultrafiltration. Patient is still quite lethargic. He underwent paracentesis today to 5 L removed. Urine output remains low. Vital signs are stable. General: The patient appeared well nourished and normally developed. HEENT: Head exam is unremarkable. Neck is without jugular venous distension. LUNGS: Breath sounds decreased. HEART: Rate and Rhythm are regular. First and second heart sounds normal. No murmurs, rubs or gallops. ABDOMEN: Abdominal exam reveals normal bowel sounds. Non-tender and non- distended. No evidence of peritonitis. EXTREMITITES: Trace edema. Objective - Vital Signs Vital signs: Vital Signs Temp 99.2 F 04/29/18 08:30 Pulse 75 04/28/18 15:20 Resp 23 04/29/18 13:01 BP 106/53 04/29/18 13:01 Pulse Ox 96 04/29/18 12:53 Intake & Output 04/28/18 04/29/18 04/29/18 18:59 06:59 18:59 Intake Total 272 Output Total 0 Balance 272 0 Weight 87 kg Intake: IV 50 Oral 222 Output: Urine 0 Other: Voiding Method Incontinent Incontinent Incontinent # Voids 1 - Labs CBC & Chem 7: 04/28/18 04:16 04/29/18 06:10 Labs: Abnormal Lab Results - Last 24 Hours (Table) 04/28/18 04/28/18 04/28/18 Range/Units 15:10 15:10 15:10 PT (9.0-12.0) sec INR (<1.2) Sodium (137-145) mmol/L Potassium 5.8 H (3.5-5.1) mmol/L Chloride (98-107) mmol/L BUN (9-20) mg/dL Creatinine (0.66-1.25) mg/dL Calcium (8.4-10.2) mg/dL Phosphorus (2.5-4.5) mg/dL Total Bilirubin (0.2-1.3) mg/dL AST (17-59) U/L Alkaline Phosphatase (38-126) U/L Ammonia 62 H (<30) umol/L Albumin (3.5-5.0) g/dL Tumor Marker AFP >173077.0 H (0.0-7.9) ng/mL 04/29/18 04/29/18 Range/Units 06:10 06:10 PT 13.3 H (9.0-12.0) sec INR 1.3 H (<1.2) Sodium 135 L (137-145) mmol/L Potassium 6.0 H (3.5-5.1) mmol/L Chloride 93 L (98-107) mmol/L BUN 71 H (9-20) mg/dL Creatinine 8.09 H* (0.66-1.25) mg/dL Calcium 8.0 L (8.4-10.2) mg/dL Phosphorus 6.9 H (2.5-4.5) mg/dL Total Bilirubin 4.8 H (0.2-1.3) mg/dL AST 209 H (17-59) U/L Alkaline Phosphatase 359 H (38-126) U/L Ammonia (<30) umol/L Albumin 3.0 L (3.5-5.0) g/dL Tumor Marker AFP (0.0-7.9) ng/mL Assessment and Plan Plan: Assessment: 1. Acute kidney injury secondary to ATN secondary to hypotension and intravascular volume depletion. Currently hemodialysis dependent due to uremia. Completed second treatment of hemodialysis this morning. 2. Hyperkalemia secondary to acute kidney injury. Expect improvement postdialysis. 3. Hepatocellular carcinoma. Oncology following. 4. Uremic encephalopathy. 5. Hyperphosphatemia secondary to acute kidney injury. 6. Hypotension likely related to underlying liver disease. 7. Ascites status post paracentesis with 5 L removed this morning. Plan: Add midodrine 5 mg 3 times a day. 50 g of albumin now. Third treatment of hemodialysis tomorrow. Overall prognosis poor.
[2018-04-29] MEDS: ALBUMIN HUMAN 25% 50 ML in EMPTY BAG 1 BAG IVPB SCH ×4 (14:26→16:44)
[2018-04-29] MEDS: HYDROcodone/APAP 10-325MG 1 EACH TAB PO PRN ×2 (14:31→20:19)
--- NOTE | 2018-04-29 14:46 | US ---
Therapeutic and diagnostic paracentesis. DATE OF EXAM: 04/29/2018 CLINICAL HISTORY: Ascites The procedure was discussed with the patient. The risks, complications, benefits, and alternatives we re discussed and any questions were answered. Informed consent was obtained. The patient was placed s upine on the ultrasound table and prepped and draped in the usual sterile fashion. All elements of maximal barrier technique were utilized. Under ultrasound guidance, access into the right lower quadrant was obtained, via the paracentesis catheter system and direct ultrasound guidanc e. Approximately 5.5 liters of straw-colored fluid was removed. The patient was stable throughout the pr ocedure and remained stable upon discharge from Department of Radiology. Sample sent to pathology for analysis. IMPRESSION: Successful paracentesis under ultrasound guidance.
--- NOTE | 2018-04-29 14:54 | P.PN ---
Subjective Progress Note Date: 04/29/18 Principal diagnosis: Acute renal failure, CHF, newly diagnosed HCC Pt less restless today, did not verbalize c/o to family, family had no acute concerns re: pt care Objective - Vital Signs Vital signs: Vital Signs Temp 99.2 F 04/29/18 08:30 Pulse 75 04/28/18 15:20 Resp 23 04/29/18 13:01 BP 106/53 04/29/18 13:01 Pulse Ox 96 04/29/18 12:53 Intake & Output 04/28/18 04/29/18 04/29/18 18:59 06:59 18:59 Intake Total 272 Output Total 0 Balance 272 0 Weight 87 kg Intake: IV 50 Oral 222 Output: Urine 0 Other: Voiding Method Incontinent Incontinent Incontinent # Voids 1 - Constitutional General appearance: Present: cooperative, mild distress, obese - Respiratory Details: respiration mildly labored - Gastrointestinal General gastrointestinal: Present: distended - Labs CBC & Chem 7: 04/28/18 04:16 04/29/18 06:10 Labs: Abnormal Lab Results - Last 24 Hours (Table) 04/28/18 04/28/18 04/28/18 Range/Units 15:10 15:10 15:10 PT (9.0-12.0) sec INR (<1.2) Sodium (137-145) mmol/L Potassium 5.8 H (3.5-5.1) mmol/L Chloride (98-107) mmol/L BUN (9-20) mg/dL Creatinine (0.66-1.25) mg/dL Calcium (8.4-10.2) mg/dL Phosphorus (2.5-4.5) mg/dL Total Bilirubin (0.2-1.3) mg/dL AST (17-59) U/L Alkaline Phosphatase (38-126) U/L Ammonia 62 H (<30) umol/L Albumin (3.5-5.0) g/dL Tumor Marker AFP >018522.0 H (0.0-7.9) ng/mL 04/29/18 04/29/18 Range/Units 06:10 06:10 PT 13.3 H (9.0-12.0) sec INR 1.3 H (<1.2) Sodium 135 L (137-145) mmol/L Potassium 6.0 H (3.5-5.1) mmol/L Chloride 93 L (98-107) mmol/L BUN 71 H (9-20) mg/dL Creatinine 8.09 H* (0.66-1.25) mg/dL Calcium 8.0 L (8.4-10.2) mg/dL Phosphorus 6.9 H (2.5-4.5) mg/dL Total Bilirubin 4.8 H (0.2-1.3) mg/dL AST 209 H (17-59) U/L Alkaline Phosphatase 359 H (38-126) U/L Ammonia (<30) umol/L Albumin 3.0 L (3.5-5.0) g/dL Tumor Marker AFP (0.0-7.9) ng/mL Assessment and Plan (1) Bone lesion Current Visit: Yes Status: Acute Priority: High Code(s): M89.9 - DISORDER OF BONE, UNSPECIFIED SNOMED Code(s): 44781264 (2) Prostate cancer Narrative/Plan: PSA is pending, based on resulted reports suspicion for metastatic prostate cancer is not likely. The only findings that could still be questioned as to primary are the cristina lesions Current Visit: Yes Status: Acute Priority: High Code(s): C61 - MALIGNANT NEOPLASM OF PROSTATE SNOMED Code(s): 413455207 (3) Liver lesion Narrative/Plan: AFP is >100,000. With imaging and the significantly elevated AFP diagnosis of HCC can be made without tissue biopsy. This was discussed with pt family. Diagnosis, limited treatment options, rapid onset of disease and prognosis was discussed. All questions answered to the best of my ability. Dr. Mai reviewed case with family as well. Did request cytology on ascitic fluid Current Visit: Yes Status: Chronic Priority: High Code(s): K76.9 - LIVER DISEASE, UNSPECIFIED SNOMED Code(s): 232076408 Plan: Plan at this time is palliation of symptoms. If pt or family has other questions or concerns we are available Attests: I have performed H&P and developed impression and plan of care, discussed with dictator, documented as a scribe Time with Patient: Greater than 30 (>35 min spent with pt/family, >50% cou nseling and coordinating care)
[2018-04-29] MEDS ORDERED: ALBUMIN HUMAN 25% 50 ML in EMPTY BAG 1 BAG IVPB SCH (15:00)
[2018-04-29 15:50] LABS: Hepatitis A Antibody IgM Non-Reactive (Non-Reactive); Hepatitis B Core IgM Non-Reactive (Non-Reactive)
[2018-04-29] MEDS: SODIUM CHLORIDE 0.9% 1,000 ML IV SCH (16:05)
[2018-04-29] MEDS ORDERED: MIDODRINE 5 MG TAB PO SCH (17:30)
[2018-04-29] MEDS ORDERED: MORPHINE SULFATE 2 MG/ML SYRINGE IVP PRN (18:18)
[2018-04-29] MEDS: MORPHINE SULFATE 4 MG/ML SYRINGE IVP PRN ×2 (18:31→22:44)
[2018-04-29 19:15] LABS: Appearance,BF Clear; Color,BF Yellow; Nucleated Cells, Body Fluid 110 /uL; Polynuclear WBC,Body Fluid 6 %; RBC, Body Fluid 410 /uL
[2018-04-29 19:16] LABS: Mononuclear WBC,Body Fluid 94 %
[2018-04-29] MEDS: ONDANSETRON 4 MG/2 ML VIAL IVP PRN (20:20)
[2018-04-29] MEDS: ZOLPIDEM 5 MG TAB PO SCH (20:20)
[2018-04-29 21:07] VITALS: BP 87/46; RESP 16; TEMP 98.3
[2018-04-30 01:43] LABS: Total Protein, Body Fluid 1840 mg/dL
--- NOTE | 2018-05-02 07:50 | DS ---
DISCHARGE SUMMARY DATE OF ADMISSION: 04/27/18 DATE OF DISCHARGE: 04/29/18. FINAL DIAGNOSES: 1. Probably primary hepatocellular carcinoma, suspected. 2. Acute renal failure probably acute tubular necrosis. 3. Acute fluid overload from third-spacing. 4. Morbid obesity, BMI more than 40. 5. Acute metabolic encephalopathy from uremic symptoms. 6. Acute on chronic congestive heart failure exacerbation from diastolic dysfunction. Ejection fraction 60%. 7. Coronary artery disease with stent. 8. Colonic diverticulosis. 9. Essential hypertension. 10.Hyperlipidemia. 11.Obstructive sleep apnea, uses CPAP machine. 12.Obesity; BMI more than 40. 13.Significant hematuria. 14.Hepatocellular carcinoma with metastatic disease. HOSPITAL COURSE: This patient presented with multitude of symptoms of fluid overload, hematuria, congestive heart failure, encephalopathic, lethargic. Earlier in the day patient did go down and had 5 L of ascitic fluid tapped. The patient also got a hemodialysis catheter and had 1 hemodialysis. When patient returned from hemodialysis, the patient's 3 daughters and were present. Family decided to make the patient hospice as he was not doing well. Discussion and discharge planning more than 35 minutes. DISPOSITION: Inpatient hospice. MEDICATIONS: Hospice care set to keep him comfortable. ADVANCED CARE PLANNING: Discussion was held with the patient's 3 daughters and the . The patient's overall prognosis was rapidly declining. They are okay to proceed with hospice. The family chose [facility]. I gave morphine orders and also oxygen to keep the patient comfortable and if needed, scopolamine patch and morphine drip if required. Questions were answered. I spoke to the nurse and told him to get ahold of the hospice. Will see if the patient qualifies for inpatient hospice. Discussion and discharge planning for this hospital care was more than 35 minutes. MMODL / IJN: [id number] /
== END 2018-04-29 22:48 | disposition hospice, inpatient (51) | DRG 435 ==
LOC: EC 15:30 → 3SCARD 19:21
PROVIDERS: ADMIT Hospitalist; ATTEND Hospitalist
PROC: 06HY33Z Insertion of Infusion Device into Lower Vein, Percutaneous Approach (ICD-10-PCS; principal; 2018-04-28 17:45)
PROC: 5A1D70Z Performance of Urinary Filtration, Intermittent, Less than 6 Hours Per Day (ICD-10-PCS; 2018-04-28 17:45)
PROC: 0W9G3ZX Drainage of Peritoneal Cavity, Percutaneous Approach, Diagnostic (ICD-10-PCS; 2018-04-29)
DX: C22.0 Liver cell carcinoma (principal); G93.41 Metabolic encephalopathy; I50.33 Acute on chronic diastolic (congestive) heart failure; J96.21 Acute and chronic respiratory failure with hypoxia; K83.1 Obstruction of bile duct; N17.0 Acute kidney failure with tubular necrosis; C79.51 Secondary malignant neoplasm of bone; E87.2 Acidosis; G45.9 Transient cerebral ischemic attack, unspecified; I13.0 Hypertensive heart and chronic kidney disease with heart failure and stage 1 through stage 4 chronic kidney disease, or unspecified chronic kidney disease; I48.1 Persistent atrial fibrillation; R18.8 Other ascites; Z68.41 Body mass index [BMI] 40.0-44.9, adult; Z85.46 Personal history of malignant neoplasm of prostate; E66.01 Morbid (severe) obesity due to excess calories; E78.5 Hyperlipidemia, unspecified; E83.39 Other disorders of phosphorus metabolism; E86.9 Volume depletion, unspecified; E87.5 Hyperkalemia; F10.10 Alcohol abuse, uncomplicated; G47.33 Obstructive sleep apnea (adult) (pediatric); H35.30 Unspecified macular degeneration; I25.119 Atherosclerotic heart disease of native coronary artery with unspecified angina pectoris; I25.2 Old myocardial infarction; I48.2 Chronic atrial fibrillation; K57.30 Diverticulosis of large intestine without perforation or abscess without bleeding; N18.3 Chronic kidney disease, stage 3 (moderate); Z79.82 Long term (current) use of aspirin; Z79.899 Other long term (current) drug therapy; Z82.3 Family history of stroke; Z82.49 Family history of ischemic heart disease and other diseases of the circulatory system; Z87.891 Personal history of nicotine dependence; Z92.3 Personal history of irradiation; Z95.5 Presence of coronary angioplasty implant and graft; Z96.612 Presence of left artificial shoulder joint; Z96.611 Presence of right artificial shoulder joint; Z99.81 Dependence on supplemental oxygen; R74.8 Abnormal levels of other serum enzymes; Z90.49 Acquired absence of other specified parts of digestive tract; Z88.8 Allergy status to other drugs, medicaments and biological substances; Z91.041 Radiographic dye allergy status; F40.240 Claustrophobia; Z66 Do not resuscitate; Z51.5 Encounter for palliative care; Z99.89 Dependence on other enabling machines and devices; Z98.42 Cataract extraction status, left eye; Z98.41 Cataract extraction status, right eye; Z89.022 Acquired absence of left finger(s); R31.9 Hematuria, unspecified; M19.90 Unspecified osteoarthritis, unspecified site
CPT/HCPCS: 36415; 36558; 36600; 49083; 51702; 71046; 74176; 76937; 77001; 80053; 80074; 82042; 82105; 82140; 82378; 82553; 82945; 83615; 83735; 83880; 84100; 84132; 84153; 84157; 84484; 85025; 85610; 85730; 87070; 87205; 88108; 88305; 89050; 90935; 93005; 99285

== ENCOUNTER 2018-04-29 22:59 | Inpatient (IN) | payer MEDICAID ==
[2018-04-30] MEDS ORDERED: ONDANSETRON 4 MG/2 ML VIAL IVP PRN (00:28)
[2018-04-30] MEDS ORDERED: HYOSCYAMINE SULFATE 0.125 MG TAB PO PRN (00:35)
[2018-04-30] MEDS ORDERED: BISACODYL 10 MG SUPP RECTAL PRN (00:36)
[2018-04-30] MEDS ORDERED: NA PHOS,M-B/NA PHOS,DI-BA 133 ML ENEMA RECTAL PRN (00:37)
[2018-04-30] MEDS ORDERED: MORPHINE SULFATE (100 MG/2 ML) 100 MG in SODIUM CHLORIDE 0.9% 100 ML IV SCH (01:00)
[2018-04-30] MEDS: LORazepam 2 MG/ML INJ IV PRN ×2 (01:08→01:56)
[2018-04-30 02:36] VITALS: BMI 31.4
[2018-04-30 03:48] VITALS: RESP 20
[2018-04-30] MEDS ORDERED: DOCUSATE 100 MG CAP PO SCH (09:00)
--- NOTE | 2018-05-02 08:05 | DS ---
DISCHARGE SUMMARY DATE OF ADMISSION: 04/29/18. DATE PATIENT : 04/30/18. CAUSE OF : Coronary artery disease. OTHER MEDICAL PROBLEMS: 1. Hepatocellular carcinoma with metastatic disease. 2. Symptom management for shortness of breath, pain. HOSPITAL COURSE: This patient admitted to inpatient hospice for symptom control for pain, shortness of breath, was put on morphine. Family members were present. [facility] was consulted. Hospice care set was used. The patient succumbed to the underlying condition. MMODL / IJN: [id number] /
== END 2018-04-30 13:05 | disposition expired | DRG 951 ==
LOC: 3SCARD 22:59
PROVIDERS: ADMIT Hospitalist; ATTEND Hospitalist
DX: Z51.5 Encounter for palliative care (principal); C22.0 Liver cell carcinoma; C79.9 Secondary malignant neoplasm of unspecified site; I25.10 Atherosclerotic heart disease of native coronary artery without angina pectoris